=== PATIENT | male | born 1935 | race Caucasian/White ===

== ENCOUNTER → 2021-02-16 08:20 | Outpatient (CLI) | payer MEDICARE, SELFPAY ==
[2021-02-16 19:39] LABS: SARS-CoV-2 RNA PCR Negative
== END ==
PROVIDERS: PCP Family Medicine Adolescent Medicine; Visit Provider Physician Assistant
DX: R05 Cough (principal); Z20.822 Contact with and (suspected) exposure to COVID-19
CPT/HCPCS: C9803; U0003; U0005

== ENCOUNTER 2021-05-15 19:40 | Emergency (ER) | payer MEDICARE, SELFPAY ==
--- NOTE | ~2021-05-15 | CT_ITS ---
EXAMINATION: CT abdomen pelvis w con DATE: 05/16/2021 01:25 INDICATION: Left lower quadrant abdominal pain. Constipation. TECHNIQUE: Computed tomography (CT) of the abdomen and pelvis was performed with 100 mL Omnipaque 350 intravenous contrast. Automated exposure control and iterative reconstruction technique were employe d. The dose-length product was 431.17 mGy-cm. COMPARISON: None. FINDINGS: The visualized portions of the lung bases demonstrate calcified pleural plaques bilaterally , which may be seen with asbestosis exposure. There is widespread peripheral septal thickening, consi stent with asbestosis. No pleural effusion. The heart size is normal. There are coronary artery calci fications. No pericardial effusion. There is a small sliding hiatal hernia. There are 5 masses in the liver measuring up to 3.5 cm. There is a 14 mm hypodense mass in the pancreatic tail. The gallbladde r, spleen, and adrenal glands are normal. There are cysts in the kidneys measuring up to 3.6 cm on th e left. There are bilateral inguinal hernias containing fat. There is a large volume of stool in the colon. There are no dilated loops of bowel. The appendix is normal. There are no pathologically enlar ged lymph nodes. There is no free intraperitoneal fluid. There is severe lumbar spondylosis. There is a chronic compression fracture of T12. There is severe thoracic spondylosis. IMPRESSION: 1. Multiple liver masses, consistent with metastatic disease. 2. 14 mm pancreatic mass. The differential diagnosis includes metastatic disease, pseudocyst, intradu ctal papillary mucinous neoplasm (IPMN), mucinous cystic neoplasm (MCN), serous cystadenoma, and neur oendocrine tumor. 9 3. Large volume of colonic stool correlating with the symptom of constipation. Reviewed, dictated and finalized at location A. IMPRESSION: 1. Multiple liver masses, consistent with metastatic disease. 2. 14 mm pancreatic mass. The differential diagnosis includes metastatic diseas e, pseudocyst, intraductal papillary mucinous neoplasm (IPMN), mucinous cystic neoplasm (MCN), serous cystadenoma, and neuroendocrine tumor. 9 3. Large volume of colonic stool correlating with the symptom of constipation.
[2021-05-15 20:15] VITALS: BP 158/96; PULSE 77; RESP 16; TEMP 36.6; O2SAT 100
[2021-05-15 20:44] LABS: Basophils Percent Auto 0.4 % (0.2-1.2); Eosinophils Percent Auto 0.1 % (0-4.4); Hematocrit 47.8 % (42.0-52.0); Hemoglobin 16.5 g/dL (14.0-18.0); Immature Granulocyte Absolute 0.06 K/mm3 (0.00-0.031); Immature Granulocyte Percent A 0.6 % (0-0.5); Immature Platelet Fraction Pct 3.7 % (0.9-11.2); Lymphocytes Absolute Auto 0.75 K/mm3 (0.9-3.2); Lymphocytes Percent Auto 7.7 % (18.3-44.2); Mean Corpuscular HGB Conc 34.5 g/dl (32-36); Mean Corpuscular Hemoglobin 30.1 pg (26-34); Mean Corpuscular Volume 87.1 fl (80-100); Mean Platelet Volume 9.9 fl (7.4-10.4); Monocytes Absolute Auto 0.6 K/mm3 (0.1-0.6); Monocytes Percent Auto 6.1 % (2.6-8.5); Neutrophils Absolute Auto 8.3 K/mm3 (1.3-6.7); Neutrophils Percent Auto 85.1 % (45.5-73.1); Platelet Count Result 123 k/mm3 (150-375); Red Blood Count 5.49 M/mm3 (4.6-6.20); Red Cell Distribution Width 15.3 % (11.5-14.5); White Blood Count 9.8 K/mm3 (4.5-10.0)
[2021-05-15 20:57] LABS: Alanine Aminotransferase 37 U/L (4-50); Albumin Level 4.5 g/dL (3.5-5.1); Alkaline Phosphatase 68 U/L (38-126); Anion Gap 12 mmol/L (8-16); Aspartate Amino Transferase 41 U/L (17-59); Bilirubin,Total 1.4 mg/dL (0.2-1.3); Blood Urea Nitrogen 18 mg/dL (9-20); Calcium 9.1 mg/dL (8.4-10.2); Carbon Dioxide 25 mmol/L (22-30); Chloride 93 mmol/L (98-107); Estimated CRCL calculation 52 ml/min; Estimated Glomerular Filt Rate > 60; Glucose 162 mg/dL (75-110); Lipase 26 U/L (23-300); Potassium 4.4 mmol/L (3.4-5.0); Sodium 130 mmol/L (137-145)
[2021-05-15 21:37] LABS: Add Urine Microscopic? YES; Appearance Urine Cloudy (Clear); Bilirubin Urine Negative (Negative); Blood Urine 2+ (Negative); Color Urine Amber (Yellow); Glucose Urine UA Negative (Negative); Ketones Urine 1+ mg/dL (Negative); Leukocyte Esterase Ur Negative LEU/UL (Negative); Mucus Urine Heavy /lpf; Nitrate Urine Negative (Negative); Protein Urine 2+ mg/dL (Negative); RBC Urine 21-50 /hpf (0-2); Specific Grav Ur 1.027 (1.001-1.035); WBC Urine 0-3 /hpf
[2021-05-15 23:04] VITALS: BP 160/91; PULSE 72; RESP 16; TEMP 36.6; O2SAT 96
--- NOTE | 2021-05-15 23:10 | PC.NURSE ---
Pt reports he had a large BM in the waiting room. Reports relief with BM. States it was brown and formed
[2021-05-16] VITALS (19 sets, daily range): BP systolic 145–183; BP diastolic 65–103; PULSE 64–78; RESP 12–20; TEMP 36.4; O2SAT 96–100
--- NOTE | 2021-05-16 00:52 | ED.ABDPAIN ---
HPI - Abdominal Pain General Chief Complaint: Nausea/Vomiting/Diarrhea Stated Complaint: nausea, vomiting, diarrhea, hypotension Time Seen by Provider: 05/16/21 00:16 Source: patient, family and RN notes reviewed Mode of arrival: EMS Limitations: no limitations History of Present Illness HPI narrative: This is an 86 year old male who presents for evaluation of abdominal pain, constipation with vomiting. He states he was diagnosed with lung ca with liver mets in April, and he was started oral chemotherapy. This chemotherapy generally causes diarrhea so he has been taking Imodium. He states he has not taken Imodium in 2 weeks. Today he felt like he had to have a bowel movement but he was unable to go. His last bowel movement prior was 4 days ago. He took magnesium citrat and tried an enema for his constipation. HE denies nausea and vomiting after taking the magnesium citrate, and he reports 2 episodes of emesis today. He still has nausea but he reports he had a bowel movement in waiting room today. He also reports left lower abdominal abdominal pain. He denies fever or chills. Related Data Home Medications Medication Instructions Recorded Confirmed aspirin 81 mg PO DAILY 10/20/19 10/20/19 atorvastatin 10 mg PO DAILY 10/20/19 10/20/19 dicyclomine 10 mg PO DAILY 10/20/19 10/20/19 metoprolol tartrate 25 mg PO BID 10/20/19 10/20/19 psyllium husk [Metamucil] 1 tbsp PO DAILY 10/20/19 10/20/19 Allergies Allergy/AdvReac Type Severity Reaction Status Date / Time No Known Allergies Allergy Mild Verified 05/16/21 00:23 Review of Systems Review of Systems: All systems reviewed & are unremarkable except as noted in HPI and below Constitutional: Constitutional: Denies chills and Denies fever(s) Cardiovascular: Cardiovascular: Denies chest pain Respiratory: Respiratory: Denies cough and Denies dyspnea Gastrointestinal: Gastrointestinal: Reports abdominal pain (intermittent chronic), Reports constipation, Reports diarrhea, Reports nausea (chronic) and Reports vomiting PMFSH Past Medical History Medical History (Updated 05/16/21 @ 02:38 by Ophelia Melendez MD) Asbestosis CAD (coronary artery disease) Diabetes Hyperlipidemia Hypertension Surgical History Surgical History Stented coronary artery Social History Social History Gender identity (if verbalized by the patient): Male Exam Const: General: no acute distress and alert Orientation/consciousness: patient oriented x3 Eyes: EOM: EOMs intact bilaterally Resp: Effort & Inspection: normal respiratory effort and no retractions Auscultation: clear to auscultation bilaterally Cardio: Rate: regular rate Rhythm: regular rhythm Heart sounds: no murmurs GI: GI Palp: Yes Soft to palpation, Yes Tenderness to palpation present (GI) (LLQ, RUQ) and No Guarding due to palpation present (GI) Auscultation: normal bowel sounds Skin: General skin exam: normal color Rashes: no rashes Neuro: General: patient oriented x3, moves all extremities and CN's II-XI intact bilaterally Psych: Mental Status: mental status grossly normal Affect: normal affect Course Reevaluation(s) Reevaluation #1: I Reviewed preliminary CT report with patient and daughter. I think it is unlikely he has colitis needing antibiotics. He is aware of liver mass. I also discussed sodium 130 and he is currently receiving IVF. They reports he has labs being drawn in the next 1-2 weeks. Date: 05/16/21 Time: 02:32 Vital Signs Vital signs: Vital Signs Temperature 97.9 F 05/15/21 20:15 Pulse Rate 77 05/15/21 20:15 Respiratory Rate 16 05/15/21 20:15 Blood Pressure 158/96 H 05/15/21 20:15 Pulse Oximetry 100 05/15/21 20:15 Temperature 97.6 F 05/16/21 00:15 Pulse Rate 68 05/16/21 03:00 Respiratory Rate 18 05/16/21 03:00 Blood Pressure 148/65 H 05/16/21
[2021-05-16] MEDS: SODIUM CHLORIDE 0.9% IV 1,000 ML 999 ML IV CONT (01:04)
[2021-05-16] MEDS: ONDANSETRON INJ 4 MG/2 ML VIAL IV PUSH (01:04)
== END 2021-05-16 03:00 | disposition home or self-care (01) ==
PROVIDERS: Emergency Medicine; Emergency Provider General Practice; PCP Family Medicine Adolescent Medicine
DX: E86.0 Dehydration (principal); K59.00 Constipation, unspecified; E87.1 Hypo-osmolality and hyponatremia; C47.5 Malignant neoplasm of peripheral nerves of pelvis; C78.7 Secondary malignant neoplasm of liver and intrahepatic bile duct
CPT/HCPCS: 36415; 74177; 80053; 81001; 83690; 85025; 85055; 96361; 96374; 99284; J2405; J7030; Q9967

== ENCOUNTER 2021-05-29 05:59 | Observation (INO) | payer MEDICARE, SELFPAY ==
[2021-05-29] VITALS (14 sets, daily range): BP systolic 128–163; BP diastolic 81–98; PULSE 57–678; RESP 12–18; TEMP 36.1–36.6; O2SAT 97–100; BMI 20.6
--- NOTE | ~2021-05-29 | MR_ITS ---
EXAMINATION: MR brain/brain stem wo/w con EXAM DATE: 05/30/2021 08:18 INDICATION: Dizziness. History lung cancer and metastatic disease. TECHNIQUE: Magnetic resonance imaging (MRI) of the brain/brain stem obtained without contrast. Sagit betzaida T1, axial diffusion, gradient echo (T2*), T1, T2, FLAIR sequences obtained. Patient was then inj ected with 10 cc intravenous Multihance contrast. Axial and coronal postcontrast T1 weighted sequence s obtained. Correlation is made to head CT from yesterday. FINDINGS: Small region of encephalomalacia in the left parietal lobe subcortical white matter, likely an old infarction. There is old small bilateral cerebellar infarctions. There are no areas of restri cted diffusion to suggest acute infarction. There is no acute hemorrhage seen on the T2*, a hemoside rin sensitive sequence. No intraparenchymal brain mass lesion. There is mild to moderate periventri cular and subcortical T2/FLAIR signal hyperintensity, nonspecific but probably related to small vesse l ischemic disease (microangiopathy). There is mild to moderate prominence of the sulci and ventric les related to cerebral atrophy. There are no extra-axial collections. Flow voids are seen in the cerebral arteries on the T2-weighted sequences consistent with their expected patency. The orbits ar e unremarkable. Soft tissue is unremarkable. IMPRESSION: 1. No acute intracranial findings. 2. Chronic age related findings. 3. 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 Reviewed, dictated and finalized at location B.
--- NOTE | ~2021-05-29 | CT_ITS ---
EXAMINATION: CT brain wo con DATE: 05/29/2021 06:37 INDICATION: Left-sided numbness. TECHNIQUE: Computed tomography (CT) of the head was performed without intravenous contrast. The dose- length product was 605.33 mGy-cm. Automated exposure control and iterative reconstruction technique w ere employed. COMPARISON: None FINDINGS: No acute intracranial hemorrhage, infarction, mass or mass effect. There is a chronic left parietal lobe infarction. Generalized atrophy. There are scattered moderate periventricular and subco rtical white matter changes, most likely related to small vessel ischemic disease (microangiopathy). There is intracranial atherosclerosis. Paranasal sinuses and mastoids are pneumatized. No depressed s kull fractures. IMPRESSION: 1. No acute intracranial abnormality. 2: Chronic left parietal lobe infarction. 3: Chronic age-related findings. As per stroke protocol, I called these results to emergency room, discussed with Dr. Daly Sifuentes MD at 05/29/2021 06:41 CDT. Reviewed, dictated and finalized at location A. IMPRESSION: 1. No acute intracranial abnormality. 2: Chronic left parietal lobe infarction. 3: Chronic age-related findings. As per stroke protocol, I called these results to emergency room, discussed wit h Dr. Daly Sifuentes MD at 05/29/2021 06:41 CDT.
--- NOTE | ~2021-05-29 | US_ITS ---
EXAMINATION: US carotid duplex BI DATE: 05/29/2021 08:02 INDICATION: Stroke protocol TECHNIQUE: Grayscale, color Doppler, and pulsed Doppler images of the cervical carotid arteries were obtained. The degree of vessel stenosis is placed in one of the following categories: normal, <50%, 5 0-69%, >=70% but less than near-occlusion, near-occlusion, or total occlusion. Note that percent sten osis relative to normal distal artery lumen diameter is indirectly measured from velocity measurement s as described by Sherwin, et al. Radiology 2003; 229:340-346. Notes: Normal: Peak systolic velocity <125 centimeters/sec and no plaque <50%. Peak systolic velocity <125 ( EDV <40; ICA/CCA PSV ratio <2.0; used these factors only a tandem lesions or low cardiac output or co ntralateral disease) 50-69 %: PSV 125-230 (EDV 40-100; ratio 2-4) >= 70% but less than near occlusion: PSV greater than 230 (EDV > 100; ratio> 4.0) Near Occlusion: PSV that is variable; markedly narrowed lumen Occlusion: Absent flow on color/spectral Doppler and no lumen on rueda scale. COMPARISON: None. FINDINGS: RIGHT: The right common carotid artery (CCA) peak systolic velocity (PSV) is 55 cm/s. The right internal car otid artery (ICA) PSV is 62 cm/s. The right ICA end-diastolic velocity (EDV) is 16 cm/s. The right IC A/CCA PSV ratio is 1.1. The external carotid artery (ECA) PSV is 51 cm/s. There is antegrade flow in the right vertebral artery. LEFT: The left CCA PSV is 67 cm/s. The left ICA PSV is 53 cm/s. The left ICA EDV is 15 cm/s. The left ICA/C CA PSV ratio is 0.8. The ECA PSV is 50 cm/s. There is antegrade flow in the left vertebral artery. IMPRESSION: 1. Less than 50% stenosis in the right internal carotid artery by sonographic criteria. 2. Less than 50% stenosis in the left internal carotid artery by sonographic criteria. Reviewed, dictated and finalized at location A. IMPRESSION: 1. Less than 50% stenosis in the right internal carotid artery by sonographic denise lieberman. 2. Less than 50% stenosis in the left internal carotid artery by sonographic miguelito avendano.
--- NOTE | 2021-05-29 06:10 | ED.NEUROSD ---
HPI - Neuro Symptoms/Deficit General Chief Complaint: Neuro Symptoms/Deficit Stated Complaint: l sided numbness Time Seen by Provider: 05/29/21 06:10 Source: patient and EMS Mode of arrival: EMS Limitations: no limitations History of Present Illness HPI Narrative: Patient is a 86-year-old male with a history of coronary artery disease, heart attack, hypertension, lung cancer with known liver metastases who presents for evaluation of left-sided numbness. Patient states he was experiencing tingling in his left hand and left leg this morning when he awakened and was trying to put his shoes on. Symptoms were noticed approximately 5 AM this morning. Last known normal was last night when he went to sleep around 10 PM. Patient denies any headache, vision changes, difficulty with speech, difficulty with ambulation or facial droop. Patient states symptoms lasted for approximately 45 minutes before resolving. At the time of my assessment, patient denies any current weakness or numbness. Patient denies any history of stroke. He is compliant with his medications. Related Data Home Medications Medication Instructions Recorded Confirmed aspirin 81 mg PO DAILY 10/20/19 10/20/19 atorvastatin 10 mg PO DAILY 10/20/19 10/20/19 dicyclomine 10 mg PO DAILY 10/20/19 10/20/19 metoprolol tartrate 25 mg PO BID 10/20/19 10/20/19 psyllium husk [Metamucil] 1 tbsp PO DAILY 10/20/19 10/20/19 Allergies Allergy/AdvReac Type Severity Reaction Status Date / Time No Known Allergies Allergy Mild Verified 05/29/21 07:12 Review of Systems Review of Systems: Narrative: CONSTITUTIONAL: Denies fever, chills, or sweats. EYES: Denies visual changes, redness, or discharge. ENT: Denies rhinorrhea, congestion, sore throat, or otalgia. CARDIOVASCULAR: Denies chest pain, palpitations, or edema. RESPIRATORY: Denies cough or dyspnea. GASTROINTESTINAL: Denies abdominal pain, nausea, vomiting, or diarrhea. GENITOURINARY: Denies dysuria or hematuria. SKIN: Denies rash or itching. MUSCULOSKELETAL: Denies back pain, joint pain, or myalgia. NEUROLOGIC: Denies headache, numbness, or weakness. [facility] Past Medical History Medical History (Updated 05/29/21 @ 07:37 by Daly Sifuentes MD) Asbestosis CAD (coronary artery disease) Diabetes Hyperlipidemia Hypertension Surgical History Surgical History Stented coronary artery Social History Social History Gender identity (if verbalized by the patient): Male Exam Narrative: Exam Narrative: GENERAL: Awake, alert, conversant HEAD: Normocephalic, atraumatic. EYES: PERRLA and EOMI. ENT: Nares clear, no rhinorrhea or epistaxis. Mucous membranes moist. NECK: Supple. CHEST: No respiratory distress, breathing even and non labored HEART: Regular rate, sinus rhythm ABDOMEN:Non distended, non tender EXTREMITIES: Normal range of motion. No edema. SKIN: Warm, dry, no rash. NEURO:No focal deficits. Alert and oriented x3. Finger to nose intact bilaterally. EOMs intact without nystagmus. No facial droop/asymmetry noted bilaterally. Grimace intact. Intact sensation in face. Hearing intact bilaterally. Shoulder shrug intact. Strength 5/5 bilateral upper extremities. Strength 5/5 bilateral lower extremities. Reflexes 2+ patellar. Heel to juan intact bilaterally. Ambulatory exam deferred. NIH stroke scale score is 0. Course Consultations Consultation #1: Stat CT head negative. Dr. Reyes recommends admission and stroke work up. Date: 05/29/21 Time: 06:45 Vital Signs Vital signs: Vital Signs Temperature 36.6 C 05/29/21 05:55 Pulse Rate 63 05/29/21 05:55 Respiratory Rate 14 05/29/21 05:55 Blood Pressure 146/91 H 05/29/21 05:55 Pulse Oximetry 97 05/29/21 05:55 Temperature 36.6 C 05/29/21 05:55 Pulse Rate 63 05/29/21 05:55 Respiratory Rate 14 05/29/21 05:55 Blood Pressure 146/91 H
--- NOTE | 2021-05-29 06:11 | ECG_ITS ---
Measurements Intervals [place] Rate: 57 P: 40 TX: 184 QRS: 13 QRSD: 92 T: -9 QT: 461 QTc: 451 Interpretive Statements SINUS BRADYCARDIA WITH MARKED SINUS ARRHYTHMIA BORDERLINE T WAVE ABNORMALITY- INFERIOR LEADS BASELINE ARTIFACT- I, II, III, AVR, AVL, AVF, V3-V6 BORDERLINE ECG Electronically Signed On 05-29-2021 8:08:26 CDT by Hayden Starks D.O.
[2021-05-29 07:10] LABS: Basophils Percent Auto 0.5 % (0.2-1.2); Eosinophils Absolute Auto 0.3 K/mm3 (0-0.3); Eosinophils Percent Auto 5.7 % (0-4.4); Hematocrit 44.2 % (42.0-52.0); Hemoglobin 15.3 g/dL (14.0-18.0); Immature Platelet Fraction Pct 2.9 % (0.9-11.2); Lymphocytes Absolute Auto 0.78 K/mm3 (0.9-3.2); Lymphocytes Percent Auto 17.9 % (18.3-44.2); Mean Corpuscular HGB Conc 34.6 g/dl (32-36); Mean Corpuscular Hemoglobin 30.2 pg (26-34); Mean Corpuscular Volume 87.4 fl (80-100); Mean Platelet Volume 8.9 fl (7.4-10.4); Monocytes Absolute Auto 0.6 K/mm3 (0.1-0.6); Monocytes Percent Auto 12.6 % (2.6-8.5); Neutrophils Absolute Auto 2.8 K/mm3 (1.3-6.7); Neutrophils Percent Auto 63.3 % (45.5-73.1); Platelet Count Result 114 k/mm3 (150-375); Red Blood Count 5.06 M/mm3 (4.6-6.20); Red Cell Distribution Width 16.4 % (11.5-14.5); White Blood Count 4.4 K/mm3 (4.5-10.0)
[2021-05-29 07:19] LABS: Anion Gap 8 mmol/L (8-16); Blood Urea Nitrogen 10 mg/dL (9-20); Calcium 8.4 mg/dL (8.4-10.2); Carbon Dioxide 25 mmol/L (22-30); Chloride 97 mmol/L (98-107); Estimated CRCL calculation 46 ml/min; Estimated Glomerular Filt Rate > 60; Glucose 123 mg/dL (65-110); Partial Thromboplastin Time 41.7 SECONDS (22.3-36.8); Potassium 4.1 mmol/L (3.4-5.0); Sodium 130 mmol/L (137-145)
[2021-05-29 07:31] LABS: Troponin I < 0.012 ng/mL (0.000-0.034)
--- NOTE | 2021-05-29 12:24 | PC.NURSE ---
called dietary and ordered a lunch tray for pt at this time
--- NOTE | 2021-05-29 14:05 | ADMGEN ---
This patient, Nawaf Lassiter, was admitted to Medical Room 252-01. Patient/family oriented to hospital policies and general routines including ID bracelet, bed and alarms, visiting hours, pain management, procedures, bathroom and other care routines, personal items, smoking policy, room service/diet, and visiting hours. Information on how to activate the Rapid Response Team has been discussed. Patient/Family are encouraged to report perceived risks to care and to ask questions if they do not understand what they are told or what they should do.
--- NOTE | 2021-05-29 22:29 | PM.IMHP ---
H&P: HPI History of Present Illness Date/Time: 05/29/21 22:29 Chief Complaint: left-sided numbness Narrative: This is an 86-year-old male with past medical history significant for metastatic disease patient is currently undergoing chemotherapy which is on hold as patient states that has been really rough on him he was brought to the emergency room after he had an episode of bilateral hand and arm numbness with weakness of the left hand. He states that he had been in his usual state of health up until this episode denies any nausea vomiting diarrhea abdominal pain cough sputum production fevers chills or rigors no changes in vision no changes in his gait no syncope or near syncope and no vertigo no dizziness no lightheadedness no chest pain. Preliminary workup was significant for CT of head with old left parietal infarct. BMP was significant for mildly decreased sodium at 130. Review of Systems Review of Systems: Narrative: bilateral upper extremities numbness left-sided weakness attributed to taking a p.o. chemotherapy which is states is rough on him Constitutional: Constitutional: Denies chills, Denies fever(s), Denies malaise and Denies weakness Eyes: Eyes: Denies change in vision ENT: Reports system reviewed and no additional complaints, except as documented Cardiovascular: Cardiovascular: Denies chest pain, Denies syncope, Denies irregular heart rhythm, Denies leg edema, Denies lightheadedness, Denies radiating jaw, neck or arm pain, Denies palpitations and Denies dyspnea on exertion Respiratory: Respiratory: Denies cough and Denies dyspnea Gastrointestinal: Gastrointestinal: Denies nausea and Denies vomiting Genitourinary: Genitourinary: Reports no additional male genitourinary complaints Musculoskeletal: Musculoskeletal: Denies joint swelling, Denies muscle cramps, Denies muscle weakness and Reports numbness Integumentary/Breasts: Skin/Breast: Reports system reviewed and no additional complaints, except as docu Neurologic: Reports focal weakness ( left hand) and Reports paresthesias ( bilateral hands) Psychiatric: Psychiatric: Reports no additional psychiatric complaints Endocrine: Endocrine: Reports no additional endocrine complaints Hematologic/Lymphatic: Hematologic/Lymphatic: Reports no additional hematologic/lymphatic complaints Allergic/Immunologic: Allergic/Immunologic: Reports no additional allergic/immunologic complaints [facility] Past Medical History Medical History (Updated 05/29/21 @ 23:43 by Chiara Acevedo MD) Asbestosis CAD (coronary artery disease) Diabetes Hyperlipidemia Hypertension Surgical History Surgical History Stented coronary artery Family History Family History (Updated 05/29/21 @ 14:41 by Esperanza Chappell RN) Mother Cancer Skin cancer (melanoma) Father Heart disease Social History Social History Smoking packs per day: 0.2 Smoking cigarettes per day: 4.0 Years smoked: 22 Smoking pack-years: 4.40 Smoking status: Former smoker Tobacco type: cigarettes Second hand tobacco smoke exposure: No Smoking end date: 11/02/82 Alcohol intake: never Substance use: never Substance use type: does not use Gender identity (if verbalized by the patient): Male Spiritual care concerns: No Meds Home Medications and Allergies Home Medications Medication Instructions Recorded Confirmed Type aspirin 81 mg PO DAILY 10/20/19 05/29/21 History atorvastatin 10 mg PO DAILY 10/20/19 05/29/21 History metoprolol tartrate 25 mg PO BID 10/20/19 05/29/21 History psyllium husk [Metamucil] 1 tbsp PO DAILY 10/20/19 05/29/21 History ondansetron HCl [Zofran] 4 mg PO Q6H 05/29/21 05/29/21 History Allergies Allergy/AdvReac Type Severity Reaction Status Date / Time No Known Allergies Allergy Mild Verified 05/29/21 14:14 Vital Signs Vital Signs - 24 hr
[2021-05-30] VITALS: PULSE 61
--- NOTE | 2021-05-30 | ECHO_ITS ---
Patient Info Name: Nawaf Lassiter Age: 86 years : 1935 Gender: Male Ht: 67 in Wt: 134 lbs BSA: 1.69 m2 HR: 63 bpm BP: 146 / 91 mmHg Heart Rhythm: Sinus Rhythm, Bradycardia Technical Quality: Good Exam Date: 05/30/2021 10:47 AM Exam Location: [facility] Pulmonary Exam Room: 252 Patient Status: Inpatient Admit Date: 05/29/2021 Staff Ordering Physician: Daly Sifuentes MD Organizational Development Manager: Jacqueline Pollard RDCS Attending Provider: Ginger Fang PA-C Referring Physician: Bear GARDINER; Exam Type: CA echo doppler w bubble study Study Info Indications - STROKE PROTOCOL /TIA Complete two-dimensional, color flow and Doppler transthoracic echocardiogram is performed with agitated saline. Contrast/Agitated Saline Contrast/Ag. Saline: Agitated Saline Amount: 20.00 ml Administered By: Tova Vitale RN Existing IV Access: Yes IV Access Condition: patent with no signs of infiltration Summary 1. Left ventricular chamber size, wall thickness, systolic are normal with no regional wall motion abnormalities with an estimated ejection fraction of 60-65%. Grade 1 diastolic dysfunction is present. 2. Left atrial chamber dimension is mildly enlarged. 3. There is mild aortic valve regurgitation. 4. There is mild mitral valve regurgitation. 5. There is mild tricuspid valve regurgitation. 6. Borderline pulmonary hypertension, estimated pulmonary arterial systolic pressure is 35 mmHg. 7. Showed mild mild amount of [id number] shunting during normal respiration and a moderate amount with Valsalva maneuver consistent with a patent foramen ovale. 8. Sinus bradycardia. Left Ventricle Left ventricular chamber size, wall thickness, systolic are normal with no regional wall motion abnormalities with an estimated ejection fraction of 60-65%. Grade 1 diastolic dysfunction is present. Left ventricular chamber dimension is normal. Left ventricular systolic function is normal, estimated at 60-65%. There is no increased left ventricular wall thickness. Left ventricular septal wall motion is normal. The left ventricular diastolic function is grade I diastolic dysfunction. Right Ventricle Right ventricular chamber dimension is normal. Right ventricular systolic function is normal. Left Atria Left atrial chamber dimension is mildly enlarged. Right Atria Right atrial chamber dimension is normal. Aortic Valve The aortic valve is trileaflet. There is no aortic valve sclerosis. There is no aortic valve stenosis. There is mild aortic valve regurgitation. Pulmonic Valve The pulmonic valve is normal. There is no pulmonic valve stenosis. There is trace pulmonic regurgitation. Mitral Valve The mitral valve has thickened leaflets. There is no mitral valve stenosis. There is mild mitral valve regurgitation. The mitral valve annulus is mildly calcified. Tricuspid Valve The tricuspid valve leaflets are normal. There is no significant tricuspid valve stenosis. There is mild tricuspid valve regurgitation. Borderline pulmonary hypertension, estimated pulmonary arterial systolic pressure is 35 mmHg. Pericardium/Pleural The pericardium appears normal. There is no pericardial effusion. Inferior Vena Cava Normal inferior vena cava with >50% collapse upon inspiration consistent with Empty right atrial pressure, 10 mmHg. Aorta The aortic root size at the sinus of Valsalva is normal. The
[2021-05-30 04:00] VITALS: PULSE 66
[2021-05-30 05:16] VITALS: BP 138/81; PULSE 65; RESP 18; TEMP 36.8; O2SAT 97
--- NOTE | 2021-05-30 08:03 | PCOTNOTE ---
Attempted OT evaluation, patient is currently off the unit for a MRI, will attempt at later time.
[2021-05-30 08:34] VITALS: PULSE 64
[2021-05-30] MEDS: ASPIRIN 81 MG CHEWABLE TABLET PO (08:34)
[2021-05-30] MEDS: ATORVASTATIN 10 MG TABLET PO (08:34)
[2021-05-30] MEDS: PSYLLIUM POWDER PACKET 1 PACKET PO (08:34)
[2021-05-30] MEDS: METOPROLOL TARTRATE 25 MG TABLET PO (08:34)
[2021-05-30 12:00] VITALS: PULSE 59
[2021-05-30] MEDS: ACETAMINOPHEN 325 MG TABLET 650 MG PO (14:21)
--- NOTE | 2021-05-30 14:49 | PM.DS ---
DS: Admitting Diagnosis Admitting Diagnosis Neurologic symptoms DS: Discharge Diagnosis Discharge Diagnosis (1) Neurological symptoms: Code(s): R29.90 - Unspecified symptoms and signs involving the nervous system Status: Acute Assessment and Plan: Presented with complaints of left sided tingling and weakness of bilateral hands which he noticed when he had difficulty buttoning his shirt. Symptoms promptly resolved. 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 Given advanced age, unlikely to be a candidate for surgical closure and likely no further evaluation is required. He will need to follow up with PCP and cardiology referral can be considered at discretion of PCP. Brain MRI with no acute findings with old small cerebellar and left parietal lobe infarctions. He was seen in consultation by neurology and will follow up as an outpatient for nerve conduction studies. Brain TIA cannot be ruled out. He will continue with daily aspirin. (2) CAD (coronary artery disease): Code(s): I25.10 - Atherosclerotic heart disease of [place] coronary artery without angina pectoris Status: Acute Assessment and Plan: Continue metoprolol and atorvastatin (3) Diabetes: Code(s): E11.9 - Type 2 diabetes mellitus without complications Status: Acute Assessment and Plan: Blood sugars well controlled. He is not on medications. (4) Hyponatremia: Code(s): E87.1 - Hypo-osmolality and hyponatremia Status: Acute Assessment and Plan: Sodium stable at 130. Likely related to lung cancer. DS: Summary Hospital Course Hospital Course: date of admission: 05/29/2021 date of discharge: 05/30/2021 Nawaf Lassiter is an 86-year-old male with a history of lung cancer with liver metastases, CAD, hypertension, and diabetes who presented to the emergency department on 05/29/2021 with complaints of left-sided numbness ongoing for approximately 45 minutes before complete resolution. 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 He was admitted to the hospitalist service for further evaluation management and seen in consultation by Neurology. Please see above for further details. His symptoms resolved completely and he was feeling back to his usual state of health and requested discharge home. given his overall improvement, he was determined to no longer require inpatient care and was felt to be stable for discharge. We discussed worrisome signs and symptoms for which to return and he was educated on his medications. He was discharged in hemodynamically stable condition on 05/30/2021. Status at Discharge Functional status at discharge: independent ambulation Overall status at discharge: patient is back to baseline Time Spent with Patient Time attestation: Total time spent providing and/or coordinating discharge services: 45 minutes Time spent: Greater than 30 minutes Exam Narrative: Mr. Lassiter is a well-nourished, well-appearing 86-year-old male who is sitting up in bed. he appears comfortable and is in NARD. Neuro: awake, alert and oriented x4, speech clear, CN II-XII intact, strength 5/5 throughout, sensation intact, no pronator drift, bilateral supervisor slashing department strength equal HEENMT: normocephalic, atraumatic, PERRL, EOMI, sclerae anicteric, moist oral mucosa, tongue midline Neck: supple, no lymphadenopathy Respiratory: clear to auscultation bilaterally, nonlabored breathing Cardio: regular rate, regular rhythm with S1-S2 Abdomen: nondis
== END 2021-05-30 16:29 | disposition home or self-care (01) ==
LOC: ANHED 07:52 → ANH2MED 13:08
PROVIDERS: Admitting Provider Internal Medicine; Emergency Provider Emergency Medicine; PCP Family Medicine Adolescent Medicine; Visit Provider Hospitalist
DX: G81.94 Hemiplegia, unspecified affecting left nondominant side (principal); C78.7 Secondary malignant neoplasm of liver and intrahepatic bile duct; E11.9 Type 2 diabetes mellitus without complications; E87.1 Hypo-osmolality and hyponatremia; E78.5 Hyperlipidemia, unspecified; I10 Essential (primary) hypertension; I25.10 Atherosclerotic heart disease of native coronary artery without angina pectoris; J61 Pneumoconiosis due to asbestos and other mineral fibers; Z86.73 Personal history of transient ischemic attack (TIA), and cerebral infarction without residual deficits; Z87.891 Personal history of nicotine dependence; Z95.5 Presence of coronary angioplasty implant and graft; Z85.118 Personal history of other malignant neoplasm of bronchus and lung
CPT/HCPCS: 36415; 70450; 70553; 80048; 84484; 85025; 85055; 85610; 85730; 93005; 93306; 93880; 96375; 97161; 97165; 99285; A9270; A9577; G0378

== ENCOUNTER → 2021-09-22 00:21 | Outpatient (CLI) | payer MEDICARE, SELFPAY ==
[2021-09-22 18:14] LABS: SARS-CoV-2 RNA PCR Negative
== END ==
PROVIDERS: PCP Family Medicine Adolescent Medicine; Visit Provider Family Medicine Adolescent Medicine
DX: R68.89 Other general symptoms and signs (principal); Z20.822 Contact with and (suspected) exposure to COVID-19
CPT/HCPCS: C9803; U0003; U0005

== ENCOUNTER → 2022-04-19 08:35 | Outpatient (CLI) | payer MEDICARE, SELFPAY ==
--- NOTE | ~2022-04-19 | MR_ITS ---
EXAMINATION: MR lumbar spine wo con DATE: 04/19/2022 09:13 INDICATION: Lumbago with sciatica, left side. TECHNIQUE: Magnetic resonance imaging (MRI) of the lumbar spine was performed without intravenous con trast. Sequences included sagittal T2-weighted FSE, sagittal T2-weighted FS FSE, sagittal T1-weighted FSE, and axial T2-weighted FSE. COMPARISON: CT abdomen and pelvis 05/16/2021 FINDINGS: There is 7 degrees levocurvature of thoracolumbar spine. There is 3 mm retrolisthesis of T1 2 on L1 and 5 mm anterolisthesis of L3 on L4. There is mild chronic height loss of T10 and T11 verteb ral bodies. There is a burst fracture of T12 with 3/5 loss of height, bone marrow edema, and retropul chucho of bone 3 mm into central spinal canal, mildly worsened from 05/16/2021. There is a burst fractur e of superior endplate of L1 with 2/5 loss of height, bone marrow edema, and retropulsion of bone 2 m m into central spinal canal. There is a compression fracture of L2 with 1/5 loss of height and bone m arrow edema. There is a burst fracture of superior endplate of L3 with 1/5 loss of height, bone marro w edema, and retropulsion of bone 3 mm into central spinal canal. There is a burst fracture of L4 wit h 1/5 loss of height, bone marrow edema, and retropulsion of bone 3 mm into central spinal canal. The re is severely decreased disc height at L4-L5 with endplate remodeling. There is ligamentum flavum hy pertrophy at the disc levels from T12-L1 through L4-L5. The distal spinal cord signal intensity is no rmal. The conus medullaris is at T12-L1. The following disc levels are specifically discussed: T12-L1: The disc is bulging. There is mild bilateral facet joint osteoarthritis. There is moderate ri ght and mild left neural foraminal stenosis. There is mild central canal stenosis. L1-L2: The disc is bulging. There is mild bilateral facet joint osteoarthritis. There is moderate rig ht and mild left neural foraminal stenosis. There is mild central canal stenosis. L2-L3: The disc is bulging. There is mild bilateral facet joint osteoarthritis. There is mild bilater al neural foraminal stenosis. There is mild central canal stenosis. L3-L4: The disc is bulging. There is severe bilateral facet joint osteoarthritis. There is mild bilat eral neural foraminal stenosis. There is moderate central canal stenosis. L4-L5: The disc is bulging and has an annular fissure. There is severe bilateral facet joint osteoart hritis. There is moderate bilateral neural foraminal stenosis. There is mild central canal stenosis. L5-S1: The disc does not extend beyond the endplate margin. There is mild bilateral facet joint osteo arthritis. There is no neural foraminal stenosis. There is no central canal stenosis. IMPRESSION: 1. Fractures of T12-L3 vertebral bodies, likely subacute. Fracture of L4 vertebral body, which may be acute or subacute. 2. Severe lumbar spondylosis. Reviewed, dictated and finalized at location D. IMPRESSION: 1. Fractures of T12-L3 vertebral bodies, likely subacute. Fracture of L4 verteb ral body, which may be acute or subacute. 2. Severe lumbar spondylosis.
== END ==
PROVIDERS: PCP Family Medicine Adolescent Medicine; Visit Provider Physician Assistant
DX: M54.42 Lumbago with sciatica, left side (principal); M54.41 Lumbago with sciatica, right side; G89.29 Other chronic pain; S32.019A Unspecified fracture of first lumbar vertebra, initial encounter for closed fracture; S32.029A Unspecified fracture of second lumbar vertebra, initial encounter for closed fracture; S32.039A Unspecified fracture of third lumbar vertebra, initial encounter for closed fracture; S32.049A Unspecified fracture of fourth lumbar vertebra, initial encounter for closed fracture; S22.089A Unspecified fracture of T11-T12 vertebra, initial encounter for closed fracture; M47.816 Spondylosis without myelopathy or radiculopathy, lumbar region
CPT/HCPCS: 72148

== ENCOUNTER 2023-01-02 14:20 | Inpatient (IN) | payer MEDICARE, SELFPAY ==
--- NOTE | ~2023-01-02 | CT_ITS ---
EXAMINATION: CT brain wo con INDICATION: Confusion COMPARISON: 05/29/2021 TECHNIQUE: Standard unenhanced head CT. The dose-length product (DLP) was 605.33 mGy-cm. The mA was a djusted according to patient size. Iterative reconstruction technique was employed. FINDINGS: There is no acute intraparenchymal hemorrhage. No evidence of mass lesion. No evidence of a cute infarction. There are areas of prior infarction in the cerebellum and left parietal lobe. There is mild periventricular and subcortical hypodensity probably related to small vessel ischemic disease . There is mild prominence of the sulci and ventricles related to cerebral atrophy. Intracranial calc ified cerebral atherosclerosis is noted. There are no extra-axial collections. There is no mass effec t or midline shift. Changes in the globes are likely from ocular lens surgery. There is moderate muco peri thickening of the ethmoidal air cells. IMPRESSION: 1. No acute intracranial abnormality. 2. Age related findings. Reviewed, dictated and finalized at location F. TOGRAPHY TEACHER
--- NOTE | ~2023-01-02 | XR_ITS ---
EXAMINATION: XR chest 2V DATE: 01/02/2023 15:51 INDICATION: Cough and fever TECHNIQUE: AP and lateral views of the chest are obtained. COMPARISON: 04/12/2012 FINDINGS: There are patchy airspace opacities of the lung bases and in the left midlung zone. Calcifi ed pleural plaques are noted. A right internal jugular Port-A-Cath ends with its tip in the distal tucker perior vena cava. No pleural effusion or pneumothorax. The cardiomediastinal silhouette is normal. Tucker ture anchors are noted in the left humeral head. There is moderate thoracic spondylosis. IMPRESSION: 1. Airspace opacities of the lung bases and left midlung zone which may reflect atelectasis versus pn eumonia. Given presence of a Port-A-Cath, recommend correlation for history of malignancy. Reviewed, dictated and finalized at location F. GATION SERVICE TECHNICIAN IMPRESSION: 1. Airspace opacities of the lung bases and left midlung zone which may reflect atelectasis versus pneumonia. Given presence of a Port-A-Cath, recommend corre lation for history of malignancy.
--- NOTE | ~2023-01-02 | CT_ITS ---
EXAMINATION: CTA chest PE protocol DATE: 01/02/2023 19:50 INDICATION: Respiratory alkalosis, cough, history of lung cancer TECHNIQUE: Computed tomography angiography (CTA) of the chest was performed with 100 mL Omnipaque-350 intravenous contrast timed to evaluate the pulmonary arteries. Coronal maximum intensity projection 3D-reconstructions were created by the technologist. The dose-length product (DLP) was 171.77 mGy-cm. Automated exposure control and iterative reconstruction technique were employed. COMPARISON: 05/16/2021 FINDINGS: The pulmonary arteries are well-opacified. No pulmonary embolism is identified. There our p erihilar airspace opacities of the left upper lobe. There is some attenuation of the pulmonary arteri es in this region of airspace opacity. There are airspace opacities of the lingula and bilateral lowe r lobes, left greater than right. Calcified pleural plaques are seen which can be seen in the setting of prior asbestos exposure. There is left hilar and right paratracheal lymphadenopathy. There are tr eyda pleural effusions. No pneumothorax is identified. The heart size is normal. A right internal jugu lar Port-A-Cath ends with its tip in the distal superior vena cava. There are hypoattenuating masses of the liver. There are multiple thoracic compression fractures. There are burst fractures L1 and L2. IMPRESSION: 1. No pulmonary embolism identified. 2. Left perihilar upper lobe airspace opacity which could reflect infection/inflammation or treated m alignancy. 3. Airspace opacities of the lingula and lower lobes, consistent with pneumonia. 4. Left hilar and right paratracheal lymphadenopathy, reactive versus metastatic. 5. Hypoattenuating liver masses, consistent with metastatic disease. Reviewed, dictated and finalized at location F. AR POINTER IMPRESSION: 1. No pulmonary embolism identified. 2. Left perihilar upper lobe airspace opacity which could reflect infection/inf lammation or treated malignancy. 3. Airspace opacities of the lingula and lower lobes, consistent with pneumonia . 4. Left hilar and right paratracheal lymphadenopathy, reactive versus metastati c. 5. Hypoattenuating liver masses, consistent with metastatic disease.
[2023-01-02 14:49] VITALS: BP 147/64; PULSE 88; RESP 20; TEMP 38.2; O2SAT 95
--- NOTE | 2023-01-02 14:52 | ECG_ITS ---
Measurements Intervals [place] Rate: 85 P: 37 [place]: 168 QRS: 41 QRSD: 86 T: 7 QT: 374 QTc: 447 Interpretive Statements SINUS RHYTHM VENTRICULAR BIGEMINY BASELINE ARTIFACT- I, II, AVR, AVL ABNORMAL ECG COMPARED TO ECG 05/29/2021 07:09:19 SINUS RHYTHM NOW PRESENT VENTRICULAR BIGEMINY NOW PRESENT Electronically Signed On 01-02-2023 19:21:35 TAR LEVELER by Hayden Starks D.O.
[2023-01-02 17:09] LABS: Basophils Percent Auto 0.1 % (0.2-1.2); Hematocrit 33.5 % (42.0-52.0); Hemoglobin 11.5 g/dL (14.0-18.0); Immature Granulocyte Absolute 0.02 K/mm3 (0.00-0.031); Immature Granulocyte Percent A 0.2 % (0-0.5); Lymphocytes Percent Auto 4.3 % (18.3-44.2); Mean Corpuscular HGB Conc 34.3 g/dl (32-36); Mean Corpuscular Hemoglobin 31.4 pg (26-34); Mean Corpuscular Volume 91.5 fl (80-100); Mean Platelet Volume 8.9 fl (7.4-10.4); Monocytes Absolute Auto 1.3 K/mm3 (0.1-0.6); Monocytes Percent Auto 14.5 % (2.6-8.5); Neutrophils Absolute Auto 7.4 K/mm3 (1.3-6.7); Neutrophils Percent Auto 80.9 % (45.5-73.1); Platelet Count Result 153 k/mm3 (150-375); Red Blood Count 3.66 M/mm3 (4.6-6.20); White Blood Count 9.2 K/mm3 (4.5-10.0)
[2023-01-02 17:18] LABS: Alanine Aminotransferase 19 U/L (6-50); Albumin Level 3.9 g/dL (3.5-5.1); Alkaline Phosphatase 89 U/L (38-126); Anion Gap 8 mmol/L (8-16); Aspartate Amino Transferase 24 U/L (17-59); Bilirubin,Total 1.1 mg/dL (0.2-1.3); Blood Urea Nitrogen 14 mg/dL (9-20); Calcium 8.1 mg/dL (8.4-10.2); Carbon Dioxide 24 mmol/L (22-30); Chloride 91 mmol/L (98-107); Estimated CRCL calculation 61 ml/min; Estimated Glomerular Filt Rate > 60; Glucose 178 mg/dL (65-110); Potassium 4.3 mmol/L (3.4-5.0); Sodium 123 mmol/L (137-145)
[2023-01-02 17:27] VITALS: BP 123/75; PULSE 78; RESP 18; O2SAT 94
[2023-01-02 17:45] LABS: Influenza A QL RT-PCR Negative (Negative); Influenza B QL RT-PCR Negative (Negative); SARS-CoV-2 RNA PCR Negative
[2023-01-02 18:28] VITALS: BP 146/72; PULSE 90; RESP 16; O2SAT 98
--- NOTE | 2023-01-02 18:37 | ED.GENADULT ---
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 Patient's daughter is at bedside and provides history. She states that she drove the patient from [place] to [place] within the past 2 days. States over the 2 days, the patient developed confusion and has been coughing. Patient's daughter states the patient was getting better this morning, ate a full breakfast and was acting himself, took a nap this afternoon and woke up worse than he was yesterday. States the patient has been walking in circles with his walker, confused. She reports he normally ambulates with a walker or cane. Daughter denies known fever, rash, hematuria, head trauma, fall. She states that the patient has been hospitalized multiple times in [place] for dehydration. Patient is denying chest pain, abdominal pain, nausea, vomiting, diarrhea, headache, difficulty breathing. Reports patient took half a oxycodone with acetaminophen pill today, otherwise no medications on board. <Edel Sood PA-C - Last Filed: 01/03/23 04:03> Related Data Home medications: Home Medications Medication Instructions Recorded Confirmed aspirin 81 mg chewable tablet 81 mg PO DAILY 10/20/19 01/03/23 atorvastatin 10 mg tablet 10 mg PO DAILY 10/20/19 01/03/23 metoprolol tartrate 25 mg tablet 25 mg PO BID 10/20/19 01/03/23 psyllium husk 3.4 gram/5.4 gram 1 tbsp PO DAILY PRN Constipation 01/30/22 01/03/23 oral powder (Metamucil) amlodipine 2.5 mg tablet 2.5 mg PO DAILY 01/03/23 01/03/23 hydrocodone bitartrate 20 mg 20 mg PO DAILY 01/03/23 01/03/23 tablet,crush resist,extended rel. 24hr metformin 500 mg tablet,extended 500 mg PO DAILY 01/03/23 01/03/23 release 24 hr oxycodone-acetaminophen 5 mg-325 1 tablet PO Q12H PRN Pain 01/03/23 01/03/23 mg tablet <Edel Sood PA-C - Last Filed: 01/03/23 04:03> Allergies/adverse reactions: Allergies Allergy/AdvReac Type Severity Reaction Status Date / Time No Known Allergies Allergy Mild Verified 08/06/22 14:01 <Edel Sood PA-C - Last Filed: 01/03/23 04:03> Review of Systems Review of Systems: CONSTITUTIONAL: Denies fever, chills EYES: Denies visual changes, redness, or discharge. ENT: Denies rhinorrhea, sore throat, or otalgia. CARDIOVASCULAR: Denies chest pain, palpitations, or edema. RESPIRATORY: See HPI GASTROINTESTINAL: Denies abdominal pain, nausea, vomiting, or diarrhea. GENITOURINARY: Denies dysuria or hematuria. SKIN: Denies rash or itching. MUSCULOSKELETAL: Denies back pain, joint pain, or myalgia. NEUROLOGIC: Denies headache, numbness, dizziness, or weakness. PSYCHIATRIC: Denies anxiety or depression. <Edel Sood PA-C - Last Filed: 01/03/23 04:03> [facility] Past Medical History Medical History: Medical History Asbestosis CAD (coronary artery disease) Diabetes Hyperlipidemia Hypertension [place] (myocardial infarction) <Edel Sood PA-C - Last Filed: 01/03/23 04:03> Surgical History Surgical History: Surgical History History of coronary angioplasty with insertion of stent History of total left knee replacement History of total right knee replacement Hx of repair of left rotator cuff Stented coronary artery <Edel Sood PA-C - Last Filed: 01/03/23 04:03> Family History Family History: Family History (Reviewed 01/02/23 @ 21:37
[2023-01-02 19:09] LABS: Alveolar/Arterial O2 Gradient 40.5 mmHg; Device ROOM AIR; Fractional Inspired Oxygen 21 %; Modified Allen's Test Pass; Oxygen Content ABG 15.7 %vol (16.0-22.0); Oxygen Saturation ABG 95.2 % (95.0-100.0); Oxyhemoglobin 92.8 % THb (90.0-100.0); PCO2 ABG 33.1 mmHg (35.0-45.0); PO2 ABG 69.6 mmHg (80.0-100.0); PO2 FiO2 Ratio Arterial Blood 3.31 %; Site Drawn LEFT RADIAL; pH ABG 7.479 (7.350-7.450)
[2023-01-02 19:13] LABS: Lactic Acid Reflex 1.1 mmol/L (0.7-2.0)
[2023-01-02 19:37] LABS: Basophils Percent Auto 0.2 % (0.2-1.2); Hematocrit 34.6 % (42.0-52.0); Hemoglobin 11.8 g/dL (14.0-18.0); Immature Granulocyte Absolute 0.01 K/mm3 (0.00-0.031); Immature Granulocyte Percent A 0.1 % (0-0.5); Lymphocytes Absolute Auto 0.63 K/mm3 (0.9-3.2); Lymphocytes Percent Auto 7.5 % (18.3-44.2); Mean Corpuscular HGB Conc 34.1 g/dl (32-36); Mean Corpuscular Hemoglobin 31.4 pg (26-34); Mean Platelet Volume 8.7 fl (7.4-10.4); Monocytes Absolute Auto 1.3 K/mm3 (0.1-0.6); Neutrophils Absolute Auto 6.5 K/mm3 (1.3-6.7); Neutrophils Percent Auto 77.2 % (45.5-73.1); Platelet Count Result 147 k/mm3 (150-375); Red Blood Count 3.76 M/mm3 (4.6-6.20); White Blood Count 8.4 K/mm3 (4.5-10.0)
[2023-01-02 19:48] LABS: INR 1.1
[2023-01-02 19:49] LABS: Partial Thromboplastin Time 41.1 SECONDS (22.3-36.8)
[2023-01-02 20:00] LABS: Alanine Aminotransferase 19 U/L (6-50); Albumin Level 3.9 g/dL (3.5-5.1); Alkaline Phosphatase 88 U/L (38-126); Anion Gap 8 mmol/L (8-16); Aspartate Amino Transferase 22 U/L (17-59); Bilirubin,Total 1.1 mg/dL (0.2-1.3); Blood Urea Nitrogen 12 mg/dL (9-20); Calcium 8.1 mg/dL (8.4-10.2); Carbon Dioxide 24 mmol/L (22-30); Chloride 93 mmol/L (98-107); Estimated CRCL calculation 61 ml/min; Estimated Glomerular Filt Rate > 60; Glucose 166 mg/dL (65-110); Lipase 19 U/L (23-300); Potassium 4.3 mmol/L (3.4-5.0); Sodium 125 mmol/L (137-145); Troponin I < 0.012 ng/mL (0.000-0.034)
[2023-01-02 20:08] LABS: Appearance Urine Clear (Clear); Bacteria Urine None Seen /hpf; Bilirubin Urine Negative (Negative); Blood Urine 3+ (Negative); Color Urine Yellow (Yellow); Glucose Urine UA Negative (Negative); Ketones Urine 1+ mg/dL (Negative); Leukocyte Esterase Ur Negative LEU/UL (Negative); Need Manual Microscopic Reviewed; Nitrate Urine Negative (Negative); Non Pathogenic Casts 0-2; Protein Urine 2+ mg/dL (Negative); RBC Urine 21-50 /hpf (0-2); Specific Grav Ur 1.016 (1.001-1.035); Squamous Epithelial Cell Urine None seen /hpf (Few); WBC Urine 0-5 /hpf; pH Urine 6.5 (5.0-9.0)
[2023-01-02 20:09] LABS: Add Urine Microscopic? YES
[2023-01-02 20:14] LABS: CRP 24.1 mg/dL (<1.0)
--- NOTE | 2023-01-02 21:28 | PC.NURSE ---
pt received 1700mL of normal saline given from 2-1,000ml bags with 300mL of waste.
--- NOTE | 2023-01-02 21:36 | PM.IMHP ---
H&P: HPI History of Present Illness Date/Time: 01/02/23 21:36 Chief Complaint: Altered mental status, UTI and weakness Narrative: this is an 87-year-old male patient who has a history of coronary artery disease asbestosis, prior myocardial infarction, hypertension and hyperlipidemia. 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 The patient was supposed to take an airplane ride from [place] however his daughter that lives with him in [facility] decided to drive him to [place]. It took them 2 days to dry from [place]. Over the last 2 days the patient has become more confused and has been coughing. Initially the patient was acting like his normal self this morning. However after taking a nap this afternoon the patient was confused and was walking in circles with his walker. The patient denies any fever chills or any urology symptoms. The patient is currently receiving treatment for his cancer through the [facility]. The patient tells me that he has completed his radiation and chemotherapy. His H&H is 11.8 and 34.6. Arterial blood gases pH 7.479. CO2 is 33.1. PO2 69.6. Sodium is low at 125 with a baseline of 130. Blood glucose One hundred sixty-six. Patient's urine was negative for leukocyte esterase, negative for nitrate 1+ ketones and 3+ blood. No bacteria was seen. chest CTA was read as1. No pulmonary embolism identified. 2. Left perihilar upper lobe airspace opacity which could reflect infection/inflammation or treated malignancy. 3. Airspace opacities of the lingula and lower lobes, consistent with pneumonia. 4. Left hilar and right paratracheal lymphadenopathy, reactive versus metastatic. 5. Hypoattenuating liver masses, consistent with metastatic disease. the patient was started on Rocephin and azithromycin. The patient was admitted to inpatient status on the date of service of 01/02/2023 Review of Systems Review of Systems: see HPI All systems reviewed & are unremarkable except as noted in HPI and below Constitutional: Constitutional: Reports as per HPI and Reports no additional constitutional complaints Eyes: Eyes: Reports as per HPI and Reports no additional eye complaints ENT: Reports system reviewed and no additional complaints, except as documented and Reports Normal hearing present Cardiovascular: Cardiovascular: Reports no additional cardiovascular complaints Respiratory: Respiratory: Reports no additional respiratory complaints and Reports no additional respiratory complaints Gastrointestinal: Gastrointestinal: Reports as per HPI and Reports no additional gastrointestinal complaints Musculoskeletal: Musculoskeletal: Reports no additional musculoskeletal complaints Integumentary/Breasts: Skin/Breast: Reports system reviewed and no additional complaints, except as docu and Reports as per HPI Neurologic: Reports system reviewed and no additional complaints, except as documented, Reports as per HPI and Reports Normal hearing present Psychiatric: Psychiatric: Reports no additional psychiatric complaints and Reports as per HPI Endocrine: Endocrine: Reports no additional endocrine complaints Hematologic/Lymphatic: Hematologic/Lymphatic: Reports no additional hematologic/lymphatic complaints Allergic/Immunologic: Allergic/Immunologic: Reports no additional allergic/immunologic complaints [facility] Past Medical History Medical History Asbestosis CAD (coronary artery disease) Diabetes Hyperlipidemia Hypertension [place] (myocardial infarction) Surgical History Surgical History History of coronary angioplasty with insertion of stent History of total left knee replacement History of total right knee replacement Hx of repair of left rotator cuff Stented coronary artery Family History Family History Mother Sg
[2023-01-02 22:44] VITALS: BP 117/59; PULSE 60; RESP 16; O2SAT 99
[2023-01-02] MEDS: SODIUM CHLORIDE 0.9% IV 1,000 ML 125 ML IV CONT (22:44)
--- NOTE | 2023-01-02 23:15 | ADMGEN ---
This patient, Nawaf Lassiter, was admitted to 2 Medical Room 242-01 @2310. Patient/family oriented to hospital policies and general routines including ID bracelet, bed and alarms, visiting hours, pain management, procedures, bathroom and other care routines, personal items, smoking policy, room service/diet, and visiting hours. Information on how to activate the Rapid Response Team has been discussed. Patient/Family are encouraged to report perceived risks to care and to ask questions if they do not understand what they are told or what they should do.
[2023-01-02 23:41] VITALS: BMI 20.8
[2023-01-02 23:42] VITALS: BP 129/60; PULSE 62; RESP 16; TEMP 36.9; O2SAT 98
[2023-01-03] VITALS (15 sets, daily range): BP systolic 101–119; BP diastolic 51–61; PULSE 60–77; RESP 14–18; TEMP 36.6–37.2; O2SAT 95–99
[2023-01-03 01:36] LABS: Troponin I < 0.012 ng/mL (0.000-0.034)
[2023-01-03] MEDS: ALBUTEROL SULFATE NEB 2.5 MG/3 ML INH INHALATION ×4 (03:21→20:15)
[2023-01-03] MEDS: IPRATROPIUM BR 0.02% INH SOLN 0.5 MG/2.5 ML VIAL INHALATION ×4 (03:21→20:15)
[2023-01-03] MEDS: CENTRAL LINE FLUSH 10 ML IV PUSH ×3 (05:05→21:00)
[2023-01-03 05:21] LABS: Basophils Percent Auto 0.3 % (0.2-1.2); Hematocrit 30.3 % (42.0-52.0); Hemoglobin 10.4 g/dL (14.0-18.0); Immature Granulocyte Absolute 0.02 K/mm3 (0.00-0.031); Immature Granulocyte Percent A 0.3 % (0-0.5); Lymphocytes Absolute Auto 0.36 K/mm3 (0.9-3.2); Lymphocytes Percent Auto 5.4 % (18.3-44.2); Mean Corpuscular HGB Conc 34.3 g/dl (32-36); Mean Corpuscular Hemoglobin 31.5 pg (26-34); Mean Corpuscular Volume 91.8 fl (80-100); Monocytes Absolute Auto 1.2 K/mm3 (0.1-0.6); Monocytes Percent Auto 18.6 % (2.6-8.5); Neutrophils Percent Auto 75.4 % (45.5-73.1); Platelet Count Result 134 k/mm3 (150-375); Red Cell Distribution Width 12.9 % (11.5-14.5); White Blood Count 6.7 K/mm3 (4.5-10.0)
[2023-01-03 05:37] LABS: Lactic Acid Reflex 1.2 mmol/L (0.7-2.0)
[2023-01-03 05:39] LABS: Alanine Aminotransferase 16 U/L (6-50); Albumin Level 3.2 g/dL (3.5-5.1); Alkaline Phosphatase 78 U/L (38-126); Anion Gap 8 mmol/L (8-16); Aspartate Amino Transferase 19 U/L (17-59); Bilirubin,Total 1.1 mg/dL (0.2-1.3); Blood Urea Nitrogen 9 mg/dL (9-20); Calcium 7.7 mg/dL (8.4-10.2); Carbon Dioxide 23 mmol/L (22-30); Chloride 96 mmol/L (98-107); Estimated CRCL calculation 75 ml/min; Estimated Glomerular Filt Rate > 60; Glucose 150 mg/dL (65-110); Magnesium 1.6 mg/dL (1.6-2.3); Potassium 3.7 mmol/L (3.4-5.0); Sodium 127 mmol/L (137-145)
[2023-01-03 05:40] LABS: Hemoglobin A1C 6.4 % (<5.7)
[2023-01-03 05:48] LABS: Troponin I < 0.012 ng/mL (0.000-0.034)
[2023-01-03 08:38] LABS: Glucose Point of Care 162 mg/dl (65-105)
[2023-01-03] MEDS: SODIUM CHLORIDE 0.9% IV 1,000 ML 75 ML IV CONT ×2 (09:33→20:36)
[2023-01-03] MEDS: MAGNESIUM SULF 4 GM/WATER100ML 4 GM/100 ML BAG IVPB (09:34)
[2023-01-03] MEDS: amLODIPine BESYLATE 2.5 MG TABLET PO (09:34)
[2023-01-03] MEDS: ASPIRIN 81 MG CHEWABLE TABLET PO (09:34)
[2023-01-03] MEDS: METOPROLOL TARTRATE 25 MG TABLET PO ×2 (09:35→17:00)
[2023-01-03] MEDS: CALCITONIN NASAL 200 UNITS/SPRAY 3.7 ML BOTTLE 1 SPRAY NASAL (09:35)
[2023-01-03] MEDS: ENOXAPARIN 40 MG/0.4 ML SYRINGE SUB-Q (09:35)
[2023-01-03] MEDS: ATORVASTATIN 10 MG TABLET PO (09:35)
--- NOTE | 2023-01-03 09:45 | P.PNIM_ITS ---
Progress Note: A&P Assessment and Plan (1) Acute metabolic encephalopathy: Code(s): G93.41 - Metabolic encephalopathy Status: Acute Assessment and Plan: * presented with confusion, walking in circles * Seems to most likely related to hyponatremia * Sodium trending up * Head Ct shows no acute abnormalities, and age related findings * Could also be related to new infection, with PNA * Continue to trend mental status * Seems to be better, as he knows his MDs, and where he is, who he is, and the present situation (2) Acute hyponatremia: Code(s): E87.1 - Hypo-osmolality and hyponatremia Status: Acute Assessment and Plan: * Na 123 upon admission * Currently up to 127 * Reduce fluids from 125ml/hr to 75ml/hr * Continue to trend Na * Consider nephrology if indicated * Urine labs (3) Pneumonia: Qualifiers: Laterality: bilateral Lung location: lower lobe of lung Pneumonia type: due to unspecified organism Qualified Code(s): J18.9 - Pneumonia, unspecified organism Code(s): J18.9 - Pneumonia, unspecified organism Status: Acute Assessment and Plan: * CTA found airspace opacities of the lingula and lower lobes, consistent with PNA * WBC normal at 6.7 * Blood cultures pending * Sputum culture ordered * Mild fever * Continue azithromycin and ceftriaxone * Neb treatments (4) Type 2 diabetes mellitus without complications: Code(s): E11.9 - Type 2 diabetes mellitus without complications Status: Acute Assessment and Plan: * Current glucose 150 * A1c 6.4 * Accu-Cheks AC and HS * hypoglycemic protocol * sliding scale insulin * Continue to trend glucose * Hold metformin for now (5) Atherosclerotic heart disease of [place] coronary artery without angina pectoris: Code(s): I25.10 - Atherosclerotic heart disease of [place] coronary artery without angina pectoris Status: Acute Assessment and Plan: * continue with aspirin and atorvastatin * Tele monitor * No complaints of chest pain * Chronic and stable (6) Liver cancer: Code(s): C22.9 - Malignant neoplasm of liver, not specified as primary or secondary Status: Acute Assessment and Plan: * History and chronic * Has completed treatment with chemo and radiation * Continue with outpatient treatment * Stable on the CT scan (7) Hyperlipidemia: Code(s): E78.5 - Hyperlipidemia, unspecified Status: Acute Assessment and Plan: * Continue with atorvastatin Plan MG is 1.6, replace with 4gm Mag Restart home medications for back pain Also add some tizanidine for further back relief Time Spent With Patient Time: 56 minutes Time with patient: Greater than 35 minutes Subjective Date/time seen: 01/03/23944 Interval history: 01/03/23944 In the chair. Patient only really complains of this back pain that is in the lower back close to the coccyx area. He does state that he feels weak. He stated that was also hard to get up to the chair he does have a cough which does sound wet. He denies any current chest pain, shortness a breath, palpitations, nausea, vomiting, diarrhea. CRP is elevated 24.1. Will cont
--- NOTE | 2023-01-03 09:45 | PM.IMPN ---
Progress Note: A&P Assessment and Plan (1) Acute metabolic encephalopathy: Code(s): G93.41 - Metabolic encephalopathy Status: Acute Assessment and Plan: presented with confusion, walking in circles Seems to most likely related to hyponatremia Sodium trending up Head Ct shows no acute abnormalities, and age related findings Could also be related to new infection, with PNA Continue to trend mental status Seems to be better, as he knows his MDs, and where he is, who he is, and the present situation (2) Acute hyponatremia: Code(s): E87.1 - Hypo-osmolality and hyponatremia Status: Acute Assessment and Plan: Na 123 upon admission Currently up to 127 Reduce fluids from 125ml/hr to 75ml/hr Continue to trend Na Consider nephrology if indicated Urine labs (3) Pneumonia: Qualifiers: Laterality: bilateral Lung location: lower lobe of lung Pneumonia type: due to unspecified organism Qualified Code(s): J18.9 - Pneumonia, unspecified organism Code(s): J18.9 - Pneumonia, unspecified organism Status: Acute Assessment and Plan: CTA found airspace opacities of the lingula and lower lobes, consistent with PNA WBC normal at 6.7 Blood cultures pending Sputum culture ordered Mild fever Continue azithromycin and ceftriaxone Neb treatments (4) Type 2 diabetes mellitus without complications: Code(s): E11.9 - Type 2 diabetes mellitus without complications Status: Acute Assessment and Plan: Current glucose 150 A1c 6.4 Accu-Cheks AC and HS hypoglycemic protocol sliding scale insulin Continue to trend glucose Hold metformin for now (5) Atherosclerotic heart disease of [place] coronary artery without angina pectoris: Code(s): I25.10 - Atherosclerotic heart disease of [place] coronary artery without angina pectoris Status: Acute Assessment and Plan: continue with aspirin and atorvastatin Tele monitor No complaints of chest pain Chronic and stable (6) Liver cancer: Code(s): C22.9 - Malignant neoplasm of liver, not specified as primary or secondary Status: Acute Assessment and Plan: History and chronic Has completed treatment with chemo and radiation Continue with outpatient treatment Stable on the CT scan (7) Hyperlipidemia: Code(s): E78.5 - Hyperlipidemia, unspecified Status: Acute Assessment and Plan: Continue with atorvastatin Plan MG is 1.6, replace with 4gm Mag Restart home medications for back pain Also add some tizanidine for further back relief Time Spent With Patient Time: 56 minutes Time with patient: Greater than 35 minutes Subjective Date/time seen: 01/03/23944 Interval history: 01/03/23944 In the chair. Patient only really complains of this back pain that is in the lower back close to the coccyx area. He does state that he feels weak. He stated that was also hard to get up to the chair he does have a cough which does sound wet. He denies any current chest pain, shortness a breath, palpitations, nausea, vomiting, diarrhea. CRP is elevated 24.1. Will continue IV antibiotics at this time. He does have a cough, which he stated is not producing any sputum at this time. 01/02/23? 21:36 ?this is an 87-year-old male patient who has a history of coronary artery disease asbestosis, prior myocardial infarction, hypertension and hyperlipidemia.? 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 The patient was supposed to take an airplane ride from [place] however his daughter that lives with him in [facility] decided to drive him to [place].? It took them 2 days to dry from [place].? Over the last 2 days the patient has become more confused and has been coughing.? Initially the patient was actin
[2023-01-03] MEDS: oxyCODONE HCL (*CRX) 10 MG TAB SR 12HR PO ×2 (10:53→20:58)
[2023-01-03 12:12] LABS: Glucose Point of Care 197 mg/dl (65-105)
[2023-01-03 16:49] LABS: Glucose Point of Care 163 mg/dl (65-105)
[2023-01-03] MEDS: DOCUSATE SODIUM 100 MG CAPSULE PO (17:00)
[2023-01-03] MEDS: oxyCODONE/ACETAMINOPHEN (*CRX) 5-325 MG TABLET 1 TABLET PO (17:02)
[2023-01-03 22:14] LABS: Glucose Point of Care 237 mg/dl (65-105)
[2023-01-04] VITALS (14 sets, daily range): BP systolic 110–149; BP diastolic 50–75; PULSE 69–84; RESP 14–19; TEMP 36.6–37.5; O2SAT 97–99
[2023-01-04] MEDS: IPRATROPIUM BR 0.02% INH SOLN 0.5 MG/2.5 ML VIAL INHALATION ×4 (02:50→20:00)
[2023-01-04] MEDS: ALBUTEROL SULFATE NEB 2.5 MG/3 ML INH INHALATION ×4 (02:50→20:00)
[2023-01-04] MEDS: CENTRAL LINE FLUSH 10 ML IV PUSH ×2 (05:38→13:25)
[2023-01-04 05:54] LABS: Basophils Percent Auto 0.3 % (0.2-1.2); Eosinophils Absolute Auto 0.1 K/mm3 (0-0.3); Eosinophils Percent Auto 0.8 % (0-4.4); Hematocrit 29.2 % (42.0-52.0); Hemoglobin 9.9 g/dL (14.0-18.0); Immature Granulocyte Absolute 0.02 K/mm3 (0.00-0.031); Immature Granulocyte Percent A 0.3 % (0-0.5); Lymphocytes Percent Auto 7.9 % (18.3-44.2); Mean Corpuscular HGB Conc 33.9 g/dl (32-36); Mean Corpuscular Hemoglobin 30.6 pg (26-34); Mean Corpuscular Volume 90.1 fl (80-100); Monocytes Absolute Auto 1.2 K/mm3 (0.1-0.6); Neutrophils Absolute Auto 5.7 K/mm3 (1.3-6.7); Neutrophils Percent Auto 74.7 % (45.5-73.1); Platelet Count Result 158 k/mm3 (150-375); Red Blood Count 3.24 M/mm3 (4.6-6.20); Red Cell Distribution Width 12.8 % (11.5-14.5); White Blood Count 7.6 K/mm3 (4.5-10.0)
[2023-01-04 06:02] LABS: Alanine Aminotransferase 18 U/L (6-50); Albumin Level 3.2 g/dL (3.5-5.1); Alkaline Phosphatase 96 U/L (38-126); Anion Gap 3 mmol/L (8-16); Aspartate Amino Transferase 22 U/L (17-59); Bilirubin,Total 0.6 mg/dL (0.2-1.3); Blood Urea Nitrogen 10 mg/dL (9-20); Calcium 7.5 mg/dL (8.4-10.2); Carbon Dioxide 24 mmol/L (22-30); Chloride 98 mmol/L (98-107); Estimated CRCL calculation 63 ml/min; Estimated Glomerular Filt Rate > 60; Glucose 152 mg/dL (65-110); Potassium 3.7 mmol/L (3.4-5.0); Sodium 125 mmol/L (137-145)
[2023-01-04 08:26] LABS: Glucose Point of Care 116 mg/dl (65-105)
[2023-01-04] MEDS: CALCITONIN NASAL 200 UNITS/SPRAY 3.7 ML BOTTLE 1 SPRAY NASAL (08:26)
[2023-01-04] MEDS: ASPIRIN 81 MG CHEWABLE TABLET PO (08:27)
[2023-01-04] MEDS: METOPROLOL TARTRATE 25 MG TABLET PO ×2 (08:27→16:42)
[2023-01-04] MEDS: DOCUSATE SODIUM 100 MG CAPSULE PO ×2 (08:29→16:42)
[2023-01-04] MEDS: ENOXAPARIN 40 MG/0.4 ML SYRINGE SUB-Q (08:29)
[2023-01-04] MEDS: amLODIPine BESYLATE 2.5 MG TABLET PO (08:30)
[2023-01-04] MEDS: ATORVASTATIN 10 MG TABLET PO (08:30)
[2023-01-04] MEDS: oxyCODONE HCL (*CRX) 10 MG TAB SR 12HR PO ×2 (08:35→20:45)
[2023-01-04] MEDS: SODIUM CHLORIDE 1 GM TABLET PO ×2 (10:05→16:42)
--- NOTE | 2023-01-04 11:00 | PM.IMPN ---
Progress Note: A&P Assessment and Plan (1) Acute metabolic encephalopathy: Code(s): G93.41 - Metabolic encephalopathy Status: Acute Assessment and Plan: presented with confusion, walking in circles Seems to most likely related to hyponatremia Sodium back down, add sodium tabs Head Ct shows no acute abnormalities, and age related findings Could also be related to new infection, with PNA Continue to trend mental status Seems to be better, as he knows his MDs, and where he is, who he is, and the present situation (2) Acute hyponatremia: Code(s): E87.1 - Hypo-osmolality and hyponatremia Status: Acute Assessment and Plan: Na 123 upon admission Currently back down to 125 stop IV fluids Most likely related to opiates, as Na went back down with restart of home pain medications Continue to trend Na Consider nephrology if indicated Urine labs osmolality , Sodium , Urea 341, Creatinine 31.2 (3) Pneumonia: Qualifiers: Laterality: bilateral Lung location: lower lobe of lung Pneumonia type: due to unspecified organism Qualified Code(s): J18.9 - Pneumonia, unspecified organism Code(s): J18.9 - Pneumonia, unspecified organism Status: Acute Assessment and Plan: CTA found airspace opacities of the lingula and lower lobes, consistent with PNA WBC normal at 7.6 Blood cultures NGTD Sputum culture ordered Mild fever Continue azithromycin and ceftriaxone Neb treatments (4) Type 2 diabetes mellitus without complications: Code(s): E11.9 - Type 2 diabetes mellitus without complications Status: Acute Assessment and Plan: Current glucose 152 A1c 6.4 Accu-Cheks AC and HS hypoglycemic protocol sliding scale insulin Continue to trend glucose Hold metformin for now (5) Atherosclerotic heart disease of [place] coronary artery without angina pectoris: Code(s): I25.10 - Atherosclerotic heart disease of [place] coronary artery without angina pectoris Status: Acute Assessment and Plan: continue with aspirin and atorvastatin Tele monitor No complaints of chest pain Chronic and stable (6) Liver cancer: Code(s): C22.9 - Malignant neoplasm of liver, not specified as primary or secondary Status: Acute Assessment and Plan: History and chronic Has completed treatment with chemo and radiation Continue with outpatient treatment Stable on the CT scan (7) Hyperlipidemia: Code(s): E78.5 - Hyperlipidemia, unspecified Status: Acute Assessment and Plan: Continue with atorvastatin Plan MG is 2.0 Restart home medications for back pain tizanidine for further back relief Time Spent With Patient Time: 53 minutes Time with patient: Greater than 35 minutes Subjective Date/time seen: 01/04/23 1100 Interval history: 01/04/23 1100 Patient was lying in bed. Patient states that he feels okay today. He was alert and oriented x4. He denies any chest pain, shortness a breath, nausea, vomiting, diarrhea or constipation. He did state that he had a coughing spell overnight. He also stated that he felt pretty much like himself. Sodium was 125 today will start him on sodium tabs which sodium most likely seems low due to pain medicine. Spoke with his daughter yesterday 01/03/23, gave update, and talked to her about her medications. Spoke to his daughter, about the further care of plan. Possible DC tomorrow. 01/03/23 0945 In the chair. Patient only really complains of this back pain that is in the lower back close to the coccyx area. He does state that he feels weak. He stated that was also hard to get up to the chair he does have a cough which does sound wet. He denies any current chest pain, shortness a breath, palpitations, nausea, vomiting, diarrhea. C
--- NOTE | 2023-01-04 11:00 | P.PNIM_ITS ---
Progress Note: A&P Assessment and Plan (1) Acute metabolic encephalopathy: Code(s): G93.41 - Metabolic encephalopathy Status: Acute Assessment and Plan: * presented with confusion, walking in circles * Seems to most likely related to hyponatremia * Sodium back down, add sodium tabs * Head Ct shows no acute abnormalities, and age related findings * Could also be related to new infection, with PNA * Continue to trend mental status * Seems to be better, as he knows his MDs, and where he is, who he is, and the present situation (2) Acute hyponatremia: Code(s): E87.1 - Hypo-osmolality and hyponatremia Status: Acute Assessment and Plan: * Na 123 upon admission * Currently back down to 125 * stop IV fluids * Most likely related to opiates, as Na went back down with restart of home pain medications * Continue to trend Na * Consider nephrology if indicated * Urine labs osmolality , Sodium , Urea 341, Creatinine 31.2 (3) Pneumonia: Qualifiers: Laterality: bilateral Lung location: lower lobe of lung Pneumonia type: due to unspecified organism Qualified Code(s): J18.9 - Pneumonia, unspecified organism Code(s): J18.9 - Pneumonia, unspecified organism Status: Acute Assessment and Plan: * CTA found airspace opacities of the lingula and lower lobes, consistent with PNA * WBC normal at 7.6 * Blood cultures NGTD * Sputum culture ordered * Mild fever * Continue azithromycin and ceftriaxone * Neb treatments (4) Type 2 diabetes mellitus without complications: Code(s): E11.9 - Type 2 diabetes mellitus without complications Status: Acute Assessment and Plan: * Current glucose 152 * A1c 6.4 * Accu-Cheks AC and HS * hypoglycemic protocol * sliding scale insulin * Continue to trend glucose * Hold metformin for now (5) Atherosclerotic heart disease of [place] coronary artery without angina pectoris: Code(s): I25.10 - Atherosclerotic heart disease of [place] coronary artery without angina pectoris Status: Acute Assessment and Plan: * continue with aspirin and atorvastatin * Tele monitor * No complaints of chest pain * Chronic and stable (6) Liver cancer: Code(s): C22.9 - Malignant neoplasm of liver, not specified as primary or secondary Status: Acute Assessment and Plan: * History and chronic * Has completed treatment with chemo and radiation * Continue with outpatient treatment * Stable on the CT scan (7) Hyperlipidemia: Code(s): E78.5 - Hyperlipidemia, unspecified Status: Acute Assessment and Plan: * Continue with atorvastatin Plan MG is 2.0 Restart home medications for back pain tizanidine for further back relief Time Spent With Patient Time: 53 minutes Time with patient: Greater than 35 minutes Subjective Date/time seen: 01/04/231099 Interval history: 01/04/231099 Patient was lying in bed. Patient states that he feels okay today. He was alert and oriented x4. He denies any chest pain, shortness a breath, nausea, vomiting, diarrhea or constipation. He did state that he had a coughing spell overnight. He also stated that he felt
[2023-01-04 12:05] LABS: Glucose Point of Care 232 mg/dl (65-105)
[2023-01-04] MEDS: INSULIN ASPART (*BKC) 100 UNITS/ML SUB-Q (12:19)
[2023-01-04 13:23] LABS: Creatinine Urine 31.2 mg/dL; Urea Random Urine 341 MG/DL
[2023-01-04 13:34] LABS: Sodium Urine Random 86 meq/L
[2023-01-04 16:43] LABS: Glucose Point of Care 184 mg/dl (65-105)
[2023-01-04 21:12] LABS: Glucose Point of Care 185 mg/dl (65-105)
[2023-01-05] VITALS (7 sets, daily range): BP systolic 106; BP diastolic 48; PULSE 73–92; RESP 18; TEMP 37; O2SAT 94
[2023-01-05] MEDS: IPRATROPIUM BR 0.02% INH SOLN 0.5 MG/2.5 ML VIAL INHALATION ×2 (02:02→07:40)
[2023-01-05] MEDS: ALBUTEROL SULFATE NEB 2.5 MG/3 ML INH INHALATION ×2 (02:02→07:40)
[2023-01-05] MEDS: CENTRAL LINE FLUSH 10 ML IV PUSH (05:23)
[2023-01-05 05:33] LABS: Basophils Percent Auto 0.3 % (0.2-1.2); Eosinophils Absolute Auto 0.1 K/mm3 (0-0.3); Eosinophils Percent Auto 1.4 % (0-4.4); Hematocrit 27.1 % (42.0-52.0); Hemoglobin 9.2 g/dL (14.0-18.0); Immature Granulocyte Absolute 0.05 K/mm3 (0.00-0.031); Immature Granulocyte Percent A 0.6 % (0-0.5); Lymphocytes Absolute Auto 0.71 K/mm3 (0.9-3.2); Lymphocytes Percent Auto 9.1 % (18.3-44.2); Mean Corpuscular HGB Conc 33.9 g/dl (32-36); Mean Corpuscular Hemoglobin 31.2 pg (26-34); Mean Corpuscular Volume 91.9 fl (80-100); Mean Platelet Volume 8.4 fl (7.4-10.4); Monocytes Absolute Auto 1.3 K/mm3 (0.1-0.6); Monocytes Percent Auto 16.5 % (2.6-8.5); Neutrophils Absolute Auto 5.6 K/mm3 (1.3-6.7); Neutrophils Percent Auto 72.1 % (45.5-73.1); Platelet Count Result 145 k/mm3 (150-375); Red Blood Count 2.95 M/mm3 (4.6-6.20); Red Cell Distribution Width 12.9 % (11.5-14.5); White Blood Count 7.8 K/mm3 (4.5-10.0)
[2023-01-05 05:50] LABS: Alanine Aminotransferase 20 U/L (6-50); Albumin Level 2.8 g/dL (3.5-5.1); Alkaline Phosphatase 107 U/L (38-126); Anion Gap 4 mmol/L (8-16); Aspartate Amino Transferase 26 U/L (17-59); Bilirubin,Total 0.6 mg/dL (0.2-1.3); Blood Urea Nitrogen 10 mg/dL (9-20); Calcium 7.4 mg/dL (8.4-10.2); Carbon Dioxide 24 mmol/L (22-30); Chloride 100 mmol/L (98-107); Estimated CRCL calculation 75 ml/min; Estimated Glomerular Filt Rate > 60; Glucose 144 mg/dL (65-110); Magnesium 1.8 mg/dL (1.6-2.3); Potassium 3.7 mmol/L (3.4-5.0); Sodium 128 mmol/L (137-145)
--- NOTE | 2023-01-05 07:15 | P.DS_ITS ---
DS: Admitting Diagnosis Discharge Date 01/05/2315 Admitting Diagnosis Pneumonia, hyponatremia DS: Discharge Diagnosis Discharge Diagnosis (1) Acute metabolic encephalopathy: Code(s): G93.41 - Metabolic encephalopathy Status: Acute Assessment and Plan: * presented with confusion, walking in circles * Seems to most likely related to hyponatremia * Sodium back down, add sodium tabs * Head Ct shows no acute abnormalities, and age related findings * Could also be related to new infection, with PNA * Continue to trend mental status * Seems to be better, as he knows his MDs, and where he is, who he is, and the present situation (2) Acute hyponatremia: Code(s): E87.1 - Hypo-osmolality and hyponatremia Status: Acute Assessment and Plan: * Na 123 upon admission * Currently back down to 125 * stop IV fluids * Most likely related to opiates, as Na went back down with restart of home pain medications * Continue to trend Na * Consider nephrology if indicated * Urine labs osmolality , Sodium , Urea 341, Creatinine 31.2 (3) Pneumonia: Qualifiers: Laterality: bilateral Lung location: lower lobe of lung Pneumonia type: due to unspecified organism Qualified Code(s): J18.9 - Pneumonia, unspecified organism Code(s): J18.9 - Pneumonia, unspecified organism Status: Acute Assessment and Plan: * CTA found airspace opacities of the lingula and lower lobes, consistent with PNA * WBC normal at 7.6 * Blood cultures NGTD * Sputum culture ordered * Mild fever * Continue azithromycin and ceftriaxone * Neb treatments (4) Type 2 diabetes mellitus without complications: Code(s): E11.9 - Type 2 diabetes mellitus without complications Status: Acute Assessment and Plan: * Current glucose 152 * A1c 6.4 * Accu-Cheks AC and HS * hypoglycemic protocol * sliding scale insulin * Continue to trend glucose * Hold metformin for now (5) Atherosclerotic heart disease of [place] coronary artery without angina pectoris: Code(s): I25.10 - Atherosclerotic heart disease of [place] coronary artery without angina pectoris Status: Acute Assessment and Plan: * continue with aspirin and atorvastatin * Tele monitor * No complaints of chest pain * Chronic and stable (6) Liver cancer: Code(s): C22.9 - Malignant neoplasm of liver, not specified as primary or secondary Status: Acute Assessment and Plan: * History and chronic * Has completed treatment with chemo and radiation * Continue with outpatient treatment * Stable on the CT scan (7) Hyperlipidemia: Code(s): E78.5 - Hyperlipidemia, unspecified Status: Acute Assessment and Plan: * Continue with atorvastatin Plan MG is 2.0 Restart home medications for back pain tizanidine for further back relief DS: Summary Hospital Course Hospital Course: Patient is an 87-year-old male with past medical history of coronary artery disease, myocardial infarction, hypertension, hyperlipidemia who presented to the ED with complaints worsening cough and confusion. Prior to arrival patient was noted to be walking in circles with his walker. It was al
--- NOTE | 2023-01-05 07:15 | PM.DS ---
DS: Admitting Diagnosis Discharge Date 01/05/2315 Admitting Diagnosis Pneumonia, hyponatremia DS: Discharge Diagnosis Discharge Diagnosis (1) Acute metabolic encephalopathy: Code(s): G93.41 - Metabolic encephalopathy Status: Acute Assessment and Plan: presented with confusion, walking in circles Seems to most likely related to hyponatremia Sodium back down, add sodium tabs Head Ct shows no acute abnormalities, and age related findings Could also be related to new infection, with PNA Continue to trend mental status Seems to be better, as he knows his MDs, and where he is, who he is, and the present situation (2) Acute hyponatremia: Code(s): E87.1 - Hypo-osmolality and hyponatremia Status: Acute Assessment and Plan: Na 123 upon admission Currently back down to 125 stop IV fluids Most likely related to opiates, as Na went back down with restart of home pain medications Continue to trend Na Consider nephrology if indicated Urine labs osmolality , Sodium , Urea 341, Creatinine 31.2 (3) Pneumonia: Qualifiers: Laterality: bilateral Lung location: lower lobe of lung Pneumonia type: due to unspecified organism Qualified Code(s): J18.9 - Pneumonia, unspecified organism Code(s): J18.9 - Pneumonia, unspecified organism Status: Acute Assessment and Plan: CTA found airspace opacities of the lingula and lower lobes, consistent with PNA WBC normal at 7.6 Blood cultures NGTD Sputum culture ordered Mild fever Continue azithromycin and ceftriaxone Neb treatments (4) Type 2 diabetes mellitus without complications: Code(s): E11.9 - Type 2 diabetes mellitus without complications Status: Acute Assessment and Plan: Current glucose 152 A1c 6.4 Accu-Cheks AC and HS hypoglycemic protocol sliding scale insulin Continue to trend glucose Hold metformin for now (5) Atherosclerotic heart disease of [place] coronary artery without angina pectoris: Code(s): I25.10 - Atherosclerotic heart disease of [place] coronary artery without angina pectoris Status: Acute Assessment and Plan: continue with aspirin and atorvastatin Tele monitor No complaints of chest pain Chronic and stable (6) Liver cancer: Code(s): C22.9 - Malignant neoplasm of liver, not specified as primary or secondary Status: Acute Assessment and Plan: History and chronic Has completed treatment with chemo and radiation Continue with outpatient treatment Stable on the CT scan (7) Hyperlipidemia: Code(s): E78.5 - Hyperlipidemia, unspecified Status: Acute Assessment and Plan: Continue with atorvastatin Plan MG is 2.0 Restart home medications for back pain tizanidine for further back relief DS: Summary Hospital Course Hospital Course: Patient is an 87-year-old male with past medical history of coronary artery disease, myocardial infarction, hypertension, hyperlipidemia who presented to the ED with complaints worsening cough and confusion. Prior to arrival patient was noted to be walking in circles with his walker. It was also noted that the patient was not able to answer simple questions. Upon arrival to the ED patient was noted to have a sodium of 125. Patient is also noted to have pneumonia for CTA in the lower lobes. Patient has been started on ceftriaxone and azithromycin. Patient was also started on IV fluids for sodium. Once patient was started back on his home medications and pain medications per his home regimen sodium did fall back down 125. Urine sodium did show 86. Patient was started on sodium tabs as this is most likely related to his chronic pain medicine use. Confusion seems to be improved patient is A&O x4. Head CT was done and showed no acute abnormalities in a
[2023-01-05 08:29] LABS: Glucose Point of Care 160 mg/dl (65-105)
[2023-01-05] MEDS: ENOXAPARIN 40 MG/0.4 ML SYRINGE SUB-Q (08:40)
[2023-01-05] MEDS: CALCITONIN NASAL 200 UNITS/SPRAY 3.7 ML BOTTLE 1 SPRAY NASAL (08:40)
[2023-01-05] MEDS: SODIUM CHLORIDE 1 GM TABLET PO (08:40)
[2023-01-05] MEDS: ASPIRIN 81 MG CHEWABLE TABLET PO (08:40)
[2023-01-05] MEDS: DOCUSATE SODIUM 100 MG CAPSULE PO (08:40)
[2023-01-05] MEDS: METOPROLOL TARTRATE 25 MG TABLET PO (08:41)
[2023-01-05] MEDS: ATORVASTATIN 10 MG TABLET PO (08:41)
[2023-01-05] MEDS: oxyCODONE HCL (*CRX) 10 MG TAB SR 12HR PO (08:46)
[2023-01-05] MEDS: NEOMYCIN/POLYMYXIN/BACITRACIN OINTMENT PACKET 1 PACKET (11:10)
[2023-01-05] MEDS: HEPARIN SODIUM LOCK FLUSH 500 UNITS/5 ML SYRINGE IV PUSH (11:11)
[2023-01-05] MEDS: CEFDINIR 300 MG CAPSULE PO (11:50)
[2023-01-05] MEDS: AZITHROMYCIN 250 MG TABLET PO (11:50)
[2023-01-05 11:52] LABS: Glucose Point of Care 210 mg/dl (65-105)
[2023-01-05] MEDS: INSULIN ASPART (*BKC) 100 UNITS/ML SUB-Q (11:53)
== END 2023-01-05 13:00 | disposition home health service (06) | DRG 640 ==
LOC: ANHED 21:00 → ANH2MED 22:00
PROVIDERS: Emergency Medicine; Nurse Practitioner; Admitting Provider Internal Medicine; Emergency Provider Physician Assistant; PCP Family Medicine Adolescent Medicine; Visit Provider Nurse Practitioner
DX: E87.1 Hypo-osmolality and hyponatremia (principal); G93.41 Metabolic encephalopathy; J18.9 Pneumonia, unspecified organism; C34.90 Malignant neoplasm of unspecified part of unspecified bronchus or lung; C78.7 Secondary malignant neoplasm of liver and intrahepatic bile duct; E87.3 Alkalosis; E78.5 Hyperlipidemia, unspecified; E11.9 Type 2 diabetes mellitus without complications; E87.8 Other disorders of electrolyte and fluid balance, not elsewhere classified; E83.51 Hypocalcemia; I25.10 Atherosclerotic heart disease of native coronary artery without angina pectoris; I25.2 Old myocardial infarction; I10 Essential (primary) hypertension; J61 Pneumoconiosis due to asbestos and other mineral fibers; Z20.822 Contact with and (suspected) exposure to COVID-19; Z92.21 Personal history of antineoplastic chemotherapy; Z92.3 Personal history of irradiation; Z79.84 Long term (current) use of oral hypoglycemic drugs; Z77.090 Contact with and (suspected) exposure to asbestos; Z85.831 Personal history of malignant neoplasm of soft tissue; Z79.82 Long term (current) use of aspirin; Z95.5 Presence of coronary angioplasty implant and graft; Z96.653 Presence of artificial knee joint, bilateral; Z87.891 Personal history of nicotine dependence
CPT/HCPCS: 36415; 36600; 70450; 71046; 71275; 80053; 81001; 82570; 82805; 82948; 83036; 83605; 83690; 83735; 83935; 84300; 84443; 84484; 84540; 85025; 85610; 85730; 86140; 87040; 87636; 93005; 94640; 96365; 96367; 97161; 97530; 99285; A9270; J0131; J0456; J0696; J1642; J1650; J1815; J3475; J7030; Q9967

== ENCOUNTER 2023-09-11 18:05 | Inpatient (IN) | payer MEDICARE, SELFPAY ==
--- NOTE | ~2023-09-11 | CT_ITS ---
EXAMINATION: CT brain wo con DATE: 09/11/2023 20:38 INDICATION: Altered mental status. TECHNIQUE: Computed tomography (CT) of the head was performed without intravenous contrast. The mA wa s adjusted according to patient size. Iterative reconstruction technique was employed. The dose-lengt h product was 605.33 mGy-cm. 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 There are scattered areas of low attenuat ion in the cerebral white matter. There is no intracranial hemorrhage, acute infarction, or abnormal intracranial mass lesion. The ventricles are normal in size. There are likely changes of ocular lens replacement surgeries. There is mild mucosal thickening in the paranasal sinuses. The mastoid air wolfgang ls are normal. IMPRESSION: 1. Small old infarct in right cerebellum. 2. Stable moderate nonspecific cerebral white matter disease, which likely represents chronic small v essel ischemic disease. Reviewed, dictated and finalized at location E. IT SPECIALIST IMPRESSION: 1. Small old infarct in right cerebellum. 2. Stable moderate nonspecific cerebral white matter disease, which likely repr esents chronic small vessel ischemic disease.
--- NOTE | ~2023-09-11 | US_ITS ---
EXAMINATION: US venous doppler UE RT DATE: 09/15/2023 21:36 INDICATION: Right upper limb swelling and edema TECHNIQUE: Grayscale images without and with compression and Doppler images of the right upper extrem ity veins were obtained. COMPARISON: None. FINDINGS: There is noncompressible occlusive thrombus in the mid to distal right cephalic vein. The right inter nal jugular vein, subclavian vein, axillary vein, brachial vein, basilic vein, proximal cephalic vein , radial vein, and ulnar vein are patent. IMPRESSION: 1. Occlusive appearing deep venous thrombosis in the mid to distal right cephalic vein. Findings were discussed with Taran Daniel, the nurse caring for the patient, at 10:35 PM. Reviewed, dictated and finalized at location A. SUSPENDER CUTTER IMPRESSION: 1. Occlusive appearing deep venous thrombosis in the mid to distal right cephal ic vein. Findings were discussed with Taran Daniel, the nurse caring for the patie nt, at 10:35 PM.
--- NOTE | ~2023-09-11 | XR_ITS ---
Portable chest x-ray Comparison: 09/16/2023 Clinical History: Shortness of breath Findings: Left-sided Mediport unchanged. Stable hazy opacification of the left upper lobe region. Di ffuse consolidation and interstitial pulmonary disease otherwise unchanged. Calcified pleural plaques are unchanged. Cardiomediastinal silhouette is stable. Bones and soft tissues are unremarkable. Impression: Overall, no interval change from prior exam. Stable probable loculated pleural effusion at the left lung apex region. Diffuse alveolar and interstitial pulmonary disease otherwise. Correlate for pulmonary edema, pneumon ia, and/or chronic interstitial disease. Calcified pleural plaques. Stable Mediport. Reviewed, dictated and finalized at location . ERGARTEN INSTRUCTIONAL ASSISTANT Impression: Overall, no interval change from prior exam. Stable probable loculated pleural effusion at the left lung apex region. Diffuse alveolar and interstitial pulmonary disease otherwise. Correlate for pu lmonary edema, pneumonia, and/or chronic interstitial disease. Calcified pleural plaques. Stable Mediport.
--- NOTE | ~2023-09-11 | XR_ITS ---
Portable chest x-ray Comparison: 09/11/2023 Clinical History: Evaluate Mediport Findings: Left-sided Mediport is in satisfactory position. Extensive hazy bilateral airspace consoli dation is present. There is vague opacity at the left lung apex, which could reflect layering or locu lated effusion. Stable calcified pleural plaques. Cardiomediastinal silhouette is stable. Bones and soft tissues are unremarkable. Impression: Left-sided Mediport remains in place. Extensive hazy airspace consolidation bilaterally. Correlate for pulmonary edema or infection. Suspected layering or loculated effusion at the left lung apex region. Stable calcified pleural plaques. Reviewed, dictated and finalized at location . CTOR OF FLIGHT OPERATIONS Impression: Left-sided Mediport remains in place. Extensive hazy airspace consolidation bilaterally. Correlate for pulmonary rodrigo a or infection. Suspected layering or loculated effusion at the left lung apex region. Stable calcified pleural plaques.
--- NOTE | ~2023-09-11 | XR_ITS ---
XR chest 1V portable DATE: 09/17/2023 09:26 INDICATION: Tachypnea TECHNIQUE: Portable AP chest on 09/17/2023 at 0913 hours COMPARISON: 09/17/2023 portable AP chest at 0 2520 hours FINDINGS: There are increased extensive patchy consolidating infiltrates throughout both lungs since 0252 hours today, suggesting increased pulmonary edema. There is thickening of minor fissure suggesti ng subpleural edema. Persistent opacification of the left upper lung field. Bilateral pleural calcifications suggesting prior asbestos exposure. Right Port-A-Cath catheter tip is situated overlying the superior vena cava. IMPRESSION: Increased bilateral pulmonary infiltrates suggesting worsening severe pulmonary edema Reviewed, dictated and finalized at location B. LANE PATROLLER IMPRESSION: Increased bilateral pulmonary infiltrates suggesting worsening zoë re pulmonary edema
--- NOTE | ~2023-09-11 | CT_ITS ---
EXAMINATION: CTA chest PE protocol DATE: 09/13/2023 12:21 INDICATION: Shortness of breath. Liposarcoma. TECHNIQUE: Computed tomography angiography (CTA) of the chest was performed with 100 mL Omnipaque-350 intravenous contrast timed to evaluate the pulmonary arteries. Coronal maximum intensity projection 3D-reconstructions were created by the technologist. Automated exposure control and iterative reconst ruction technique were employed. The dose-length product was 266.45 mGy-cm. COMPARISON: Chest CT 01/02/2023 FINDINGS: There are calcified pleural plaques bilaterally, which may be seen with asbestosis exposure . There are small pleural effusions, left worse than right. There is widespread septal thickening in the lungs with a peripheral predominance associated with groundglass opacities. There are airspace op acities with volume loss and architectural distortion in left upper lobe and superior segment left lo wer lobe, likely radiation fibrosis. The heart size is normal. There are coronary artery calcificatio ns. No pericardial effusion. There is no pulmonary embolus. There is a small volume of ascites. There are ill-defined masses in the liver measuring up to 6.6 cm. There is a 2.6 cm mass in the right retr operitoneal fat, worsened from 16 mm on 01/02/2023. There is severe thoracic spondylosis. There is old fracture of T1 spinous process with nonunion. There are old fractures of T5, T7, L1, and L2 vertebral bodies. There is a right internal jugular port with tip in superior vena cava. IMPRESSION: 1. No pulmonary embolus. 2. Diffuse lung disease, likely mild pulmonary edema superimposed on chronic interstitial lung diseas e. 3. Stable radiation fibrosis in left upper lobe and superior segment left lower lobe. 4. Small pleural effusions. 5. Liver masses and retroperitoneal mass, consistent with metastatic disease. 6. Small volume of ascites. Reviewed, dictated and finalized at location A. ERVATION OF RESOURCES COMMISSIONER IMPRESSION: 1. No pulmonary embolus. 2. Diffuse lung disease, likely mild pulmonary edema superimposed on chronic in terstitial lung disease. 3. Stable radiation fibrosis in left upper lobe and superior segment left lower lobe. 4. Small pleural effusions. 5. Liver masses and retroperitoneal mass, consistent with metastatic disease. 6. Small volume of ascites.
--- NOTE | ~2023-09-11 | XR_ITS ---
Portable chest x-ray Comparison: 09/15/2023 Clinical History: Pneumonia, leiomyosarcoma Findings: Right-sided Mediport is unchanged. Extensive haziness at the left lung apex region is unch anged. Diffuse hazy and interstitial pulmonary disease otherwise is unchanged. Stable calcified pleur al plaques. Cardiomediastinal silhouette is stable. Bones and soft tissues are unremarkable. Impression: Stable diffuse hazy and interstitial pulmonary disease. Correlate for pulmonary edema, infection, and /or chronic interstitial disease. Stable haziness of left lung apex, suggestive of layering and/or loculated effusion. Calcified pleural plaques. Stable Mediport. Reviewed, dictated and finalized at location . UCTION CLERK Impression: Stable diffuse hazy and interstitial pulmonary disease. Correlate for pulmonary edema, infection, and/or chronic interstitial disease. Stable haziness of left lung apex, suggestive of layering and/or loculated effu chucho. Calcified pleural plaques. Stable Mediport.
--- NOTE | ~2023-09-11 | XR_ITS ---
EXAMINATION: XR chest 2V DATE: 09/11/2023 20:10 INDICATION: Cough. Altered mental status. TECHNIQUE: Frontal and lateral views of the chest were obtained. COMPARISON: Chest 2 views 01/10/2023, chest CT 01/02/2023 FINDINGS: There are calcified pleural plaques bilaterally, which may be seen with asbestosis exposure . There are airspace opacities in right lower lung zone and left mid and lower lung zones. No pleural effusion or pneumothorax. The heart size is normal. There is a right internal jugular port with tip in superior vena cava. There are suture anchors in left humeral head. IMPRESSION: 1. Airspace opacities in right lower lung zone and left mid and lower lung zones with worsening in le ft lower lung zone, likely a combination of chronic interstitial lung disease, left midlung zone radi ation fibrosis, and left basilar atelectasis/scarring versus pneumonia. Reviewed, dictated and finalized at location E. NT PROFESSIONAL IMPRESSION: 1. Airspace opacities in right lower lung zone and left mid and lower lung zone s with worsening in left lower lung zone, likely a combination of chronic inter stitial lung disease, left midlung zone radiation fibrosis, and left basilar at electasis/scarring versus pneumonia.
[2023-09-11 18:06] VITALS: BP 125/84; PULSE 98; RESP 16; TEMP 36.9; O2SAT 96
--- NOTE | 2023-09-11 18:12 | ECG_ITS ---
Measurements Intervals [place] Rate: 94 P: 84 DE: 179 QRS: 27 QRSD: 91 T: 0 QT: 367 QTc: 459 Interpretive Statements SINUS RHYTHM WITH SINUS ARRHYTHMIA BORDERLINE ST-T WAVE ABNORMALITY- ANT/INF LEADS BASELINE WANDER- III, V6 BORDERLINE ECG COMPARED TO ECG 01/02/2023 18:53:27 SINUS ARRHYTHMIA NOW PRESENT Electronically Signed On 09-11-2023 18:49:04 [employer]ICAL [employer] TECH IN[employer]CTOR by Hayden Starks D.O.
[2023-09-11 18:58] LABS: Hematocrit 27.8 % (42.0-52.0); Hemoglobin 9.2 g/dL (14.0-18.0); Mean Corpuscular HGB Conc 33.1 g/dl (32-36); Mean Corpuscular Hemoglobin 30.7 pg (26-34); Mean Corpuscular Volume 92.7 fl (80-100); Mean Platelet Volume 10.6 fl (7.4-10.4); Platelet Count Result 41 k/mm3 (150-375); Red Cell Distribution Width 14.3 % (11.5-14.5)
[2023-09-11 19:06] LABS: Alanine Aminotransferase 18 U/L (6-50); Alkaline Phosphatase 83 U/L (38-126); Anion Gap 9 mmol/L (8-16); Aspartate Amino Transferase 20 U/L (17-59); Bilirubin,Total 0.8 mg/dL (0.2-1.3); Blood Urea Nitrogen 30 mg/dL (9-20); Carbon Dioxide 21 mmol/L (22-30); Chloride 98 mmol/L (98-107); Estimated CRCL calculation 70 ml/min; Estimated Glomerular Filt Rate > 60; Glucose 181 mg/dL (65-110); Potassium 4.2 mmol/L (3.4-5.0); Sodium 128 mmol/L (137-145)
[2023-09-11 19:49] LABS: White Blood Count 0.4 K/mm3 (4.5-10.0)
[2023-09-11 19:56] VITALS: PULSE 88
--- NOTE | 2023-09-11 19:59 | ED.WEAKNESS ---
HPI - Weakness General Chief complaint: Weakness Stated complaint: ams Time Seen by Provider: 09/11/23 19:12 Source: patient and family (son in person and daughter by phone) History of Present Illness HPI Narrative: This is an 88-year-old male with past medical history of lung and liver cancer and asbestosis who presents to the emergency department with complaint of feeling weak. Patient last underwent chemotherapy a week ago on . At baseline he is fairly active. His last known well is Friday when his son spoke with him and states he was sharp then. Patient states he did go to the [facility] to work out on Friday but he did leave early because he was not feeling well. He had an acute worsening of generally feeling unwell today. He denies any chest pain, abdominal pain, or difficulty breathing. He does state he has had a dry nonproductive cough. He denies any change in bowel or bladder. His last oral intake was ham and eggs at 12 PM when his son showed up. He also drank a liter of pedialyte at this time. His son believes he is likely dehydrated. It was noted that the last medications that patient had taken were his Friday morning medications none thereafter. He states he has had a headache. He received his COVID and flu boosters 2 weeks ago. Related Data Home Medications Medication Instructions Recorded Confirmed aspirin 81 mg chewable tablet 81 mg PO DAILY 10/20/19 04/17/23 psyllium husk 3.4 gram/5.4 gram 1 tbsp PO DAILY PRN Constipation 01/30/22 04/17/23 oral powder (Metamucil) acetaminophen 650 mg tablet 650 mg PO Q4H 01/03/23 04/17/23 docusate sodium 100 mg tablet 100 mg PO BID 01/03/23 04/17/23 Allergies Allergy/AdvReac Type Severity Reaction Status Date / Time No Known Allergies Allergy Mild Verified 09/11/23 18:53 [facility] Past Medical History Medical History Acute respiratory alkalosis Asbestosis Atherosclerosis of aorta Bilateral carotid artery stenosis Brain TIA CAD (coronary artery disease) Hematuria Hyperlipidemia Hypertension Hyponatremia Lung cancer Occlusion and stenosis of bilateral carotid arteries [place] (myocardial infarction) Surgical History Surgical History History of coronary angioplasty with insertion of stent History of total left knee replacement History of total right knee replacement Hx of repair of left rotator cuff Stented coronary artery Family History Family History Mother Cancer Skin cancer (melanoma) Father Heart disease Social History Social History (Updated 09/11/23 @ 21:47 by Dorene Arana MD) Social History: the patient is . he has a son and daughter. 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 The patient resides by himself. His daughter lives in [place] Smoking packs per day: 0.2 Smoking cigarettes per day: 4.0 Years smoked: 22 Smoking pack-years: 4.40 Smoking status: Former smoker Tobacco type: cigarettes Second hand tobacco smoke exposure: No Smoking end date: 11/02/82 Alcohol intake: never Substance use: never Substance use type: does not use Lack of Transportation: No Lack of Food: Never True Current Housing: I Have Housing Concerned About Future Housing: No Difficulty Paying Gas/Electric Bills: No Difficulty Paying for Meds: No Currently Unemployed: No Education: High School Diploma/GED Difficulty w/ Childcare or Family Care: No Living arrangements: alone Occupation/Education: retired Gender identity (if verbalized by the patient): Male Spiritual care concerns: No Agree to blood products: Yes Exam Narrative: GENERAL: well-nourished, and in no acute distress. HEAD: Normocephalic, atraumatic. ENT: Nares clear, no rhinorrhea or epistaxis. Mucous membranes moist. NECK: Supple.
[2023-09-11 20:03] LABS: Lymphocytes Absolute Manual 0.16 K/mm3 (1.1-4.5); Lymphocytes Percent Manual 40 % (18-44); Monocytes Absolute Manual 0.08 K/mm3 (0.1-0.90); Monocytes Percent Manual 20 % (3-9); Neutrophils Percent Manual 40 % (46-73); Ovalocytes 1+ (NORMAL); Platelet Estimate Decreased (Adequate); Schistocytes None Seen (NORMAL); Total Cells Counted 5
[2023-09-11 20:12] LABS: Magnesium 1.4 mg/dL (1.6-2.3); Phosphorus 2.6 mg/dL (2.5-4.5)
[2023-09-11 20:25] LABS: Troponin I 0.014 ng/mL (0.000-0.034)
[2023-09-11] MEDS: MAGNESIUM SULF 1 GM/D5W 100 ML 1 GM/100 ML BAG IVPB (21:06)
[2023-09-11 21:07] VITALS: BP 111/65; PULSE 87; RESP 24; TEMP 36.4; O2SAT 90
[2023-09-11 21:10] LABS: Appearance Urine Clear (Clear); Bacteria Urine None Seen /hpf; Bilirubin Urine Negative (Negative); Blood Urine Negative (Negative); Color Urine Dark Yellow (Yellow); Glucose Urine UA Negative (Negative); Ketones Urine Trace mg/dL (Negative); Leukocyte Esterase Ur Negative LEU/UL (Negative); Nitrate Urine Negative (Negative); Non Pathogenic Casts 0-2; Protein Urine 1+ mg/dL (Negative); Specific Grav Ur 1.026 (1.001-1.035); Squamous Epithelial Cell Urine None seen /hpf (Few); WBC Urine 0-5 /hpf; pH Urine 5.5 (5.0-9.0)
[2023-09-11 21:18] LABS: Add Urine Microscopic? YES
[2023-09-11] MEDS: CEFEPIME 1 GM/NS 50 ML 1 GM/50 ML BAG IVPB (22:23)
--- NOTE | 2023-09-11 22:37 | PM.IMHP ---
H&P: HPI History of Present Illness Date/Time: 09/11/23 22:37 Chief Complaint: weakness Narrative: 88-year-old male with past medical history of lung and liver cancer and asbestosis who presents to the emergency department with complaint of feeling weak.? Patient last underwent chemotherapy a week ago on .? At baseline he is fairly active.? His last known well is Friday when his son spoke with him and states he was sharp then.? Patient states he did go to the [facility] to work out on Friday but he did leave early because he was not feeling well.? He had an acute worsening of generally feeling unwell today.? He denies any chest pain, abdominal pain, or difficulty breathing.? He does state he has had a dry nonproductive cough.? He denies any change in bowel or bladder.? His last oral intake was ham and eggs at 12 PM when his son showed up.? He also drank a liter of pedialyte at this time.? His son believes he is likely dehydrated.? It was noted that the last medications that patient had taken were his Friday morning medications none thereafter.? He states he has had a headache.? He received his COVID and flu boosters 2 weeks ago. Evaluation in the Ed showed that he is hyponatremic - 128, leukopenic and neutropenic and this is all new compared to prior labs, CXR is suspicious of pneumonia, CT head is negativ, there is no focal deficit. . Review of Systems Review of Systems: All systems reviewed & are unremarkable except as noted in HPI and below PMFSH Past Medical History Medical History Acute respiratory alkalosis Asbestosis Atherosclerosis of aorta Bilateral carotid artery stenosis Brain TIA CAD (coronary artery disease) Hematuria Hyperlipidemia Hypertension Hyponatremia Lung cancer Occlusion and stenosis of bilateral carotid arteries [place] (myocardial infarction) Surgical History Surgical History History of coronary angioplasty with insertion of stent History of total left knee replacement History of total right knee replacement Hx of repair of left rotator cuff Stented coronary artery Family History Family History Mother Cancer Skin cancer (melanoma) Father Heart disease Social History Social History (Updated 09/11/23 @ 21:47 by Dorene Arana MD) Social History: the patient is . he has a son and daughter. 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 The patient resides by himself. His daughter lives in [place] Smoking packs per day: 0.2 Smoking cigarettes per day: 4.0 Years smoked: 22 Smoking pack-years: 4.40 Smoking status: Former smoker Tobacco type: cigarettes Second hand tobacco smoke exposure: No Smoking end date: 11/02/82 Alcohol intake: never Substance use: never Substance use type: does not use Lack of Transportation: No Lack of Food: Never True Current Housing: I Have Housing Concerned About Future Housing: No Difficulty Paying Gas/Electric Bills: No Difficulty Paying for Meds: No Currently Unemployed: No Education: High School Diploma/GED Difficulty w/ Childcare or Family Care: No Living arrangements: alone Occupation/Education: retired Gender identity (if verbalized by the patient): Male Spiritual care concerns: No Agree to blood products: Yes Meds Home Medications and Allergies Home Medications Medication Instructions Recorded Confirmed Type aspirin 81 mg chewable tablet 81 mg PO DAILY 10/20/19 09/12/23 History psyllium husk 3.4 gram/5.4 gram 1 tbsp PO DAILY PRN Constipation 01/30/22 09/12/23 History oral powder (Metamucil) acetaminophen 650 mg tablet 650 mg PO Q4H PRN Pain (Scale 01/03/23 09/12/23 History Score 1-3) docusate sodium 100 mg tablet 100 mg PO BID 01/03/23 09/12/23 History amlodipine 2.5 mg tablet 2.5 mg
[2023-09-11] MEDS: SODIUM CHLORIDE 0.9% IV 1,000 ML 125 ML IV CONT (23:14)
[2023-09-11 23:15] LABS: Lactic Acid Reflex 1.9 mmol/L (0.7-2.0)
[2023-09-11 23:16] VITALS: BP 103/56; PULSE 96; RESP 22; TEMP 36.4; O2SAT 97
[2023-09-11 23:21] LABS: Magnesium 1.5 mg/dL (1.6-2.3)
[2023-09-11 23:45] LABS: MRSA (PCR) NOT DETECTED (NOT DETECTE)
[2023-09-12] VITALS (13 sets, daily range): BP systolic 91–150; BP diastolic 51–79; PULSE 91–105; RESP 15–20; TEMP 36.3–37.9; O2SAT 95–100; BMI 24.1
[2023-09-12 00:02] LABS: Influenza A QL RT-PCR Negative (Negative); Influenza B QL RT-PCR Negative (Negative); SARS-CoV-2 RNA PCR Negative (Negative)
[2023-09-12] MEDS: SODIUM CHLORIDE 0.9% IV 1,000 ML 999 ML IV CONT (03:38)
--- NOTE | 2023-09-12 04:46 | ADMGEN ---
This patient, Nawaf Lassiter, was admitted to [facility] Surg Room 302-01. Patient/family oriented to hospital policies and general routines including ID bracelet, bed and alarms, visiting hours, pain management, procedures, bathroom and other care routines, personal items, smoking policy, room service/diet, and visiting hours. Information on how to activate the Rapid Response Team has been discussed. Patient/Family are encouraged to report perceived risks to care and to ask questions if they do not understand what they are told or what they should do.
[2023-09-12] MEDS: CEFEPIME 2 GM/NS 50 ML 2 GM/50 ML BAG IVPB ×3 (05:34→20:16)
[2023-09-12] MEDS: SODIUM CHLORIDE 0.9% IV 1,000 ML 125 ML IV CONT ×2 (05:34→20:17)
[2023-09-12 07:26] LABS: Eosinophils Percent Auto 3.1 % (0-4.4); Hematocrit 24.2 % (42.0-52.0); Hemoglobin 8.1 g/dL (14.0-18.0); Immature Granulocyte Absolute 0.01 K/mm3 (0.00-0.031); Immature Granulocyte Percent A 3.1 % (0-0.5); Immature Platelet Fraction Pct 4.5 % (0.9-11.2); Lymphocytes Absolute Auto 0.09 K/mm3 (0.9-3.2); Lymphocytes Percent Auto 28.1 % (18.3-44.2); Mean Corpuscular HGB Conc 33.5 g/dl (32-36); Mean Corpuscular Hemoglobin 30.9 pg (26-34); Mean Corpuscular Volume 92.4 fl (80-100); Mean Platelet Volume 12.2 fl (7.4-10.4); Monocytes Absolute Auto 0.1 K/mm3 (0.1-0.6); Monocytes Percent Auto 21.9 % (2.6-8.5); Neutrophils Absolute Auto 0.1 K/mm3 (1.3-6.7); Neutrophils Percent Auto 43.8 % (45.5-73.1); Platelet Count Result 28 k/mm3 (150-375); Red Blood Count 2.62 M/mm3 (4.6-6.20); Red Cell Distribution Width 14.2 % (11.5-14.5)
[2023-09-12 07:32] LABS: Anion Gap 6 mmol/L (8-16); Blood Urea Nitrogen 22 mg/dL (9-20); Calcium 7.2 mg/dL (8.4-10.2); Carbon Dioxide 21 mmol/L (22-30); Chloride 102 mmol/L (98-107); Estimated CRCL calculation 70 ml/min; Estimated Glomerular Filt Rate > 60; Glucose 139 mg/dL (65-110); Potassium 3.7 mmol/L (3.4-5.0); Sodium 129 mmol/L (137-145)
[2023-09-12 08:15] LABS: White Blood Count 0.3 K/mm3 (4.5-10.0)
[2023-09-12 08:17] LABS: Ovalocytes 1+ (NORMAL); Platelet Estimate Decreased (Adequate); Schistocytes None Seen (NORMAL)
--- NOTE | 2023-09-12 08:41 | PM.IMPN ---
Progress Note: A&P Assessment and Plan (1) Encephalopathy: Code(s): G93.40 - Encephalopathy, unspecified Status: Acute (2) Hyponatremia: Code(s): E87.1 - Hypo-osmolality and hyponatremia Status: Acute (3) Pneumonia: Code(s): J18.9 - Pneumonia, unspecified organism Status: Acute (4) Hypomagnesemia: Code(s): E83.42 - Hypomagnesemia Status: Acute (5) Pancytopenia: Code(s): D61.818 - Other pancytopenia Status: Acute (6) Severe sepsis: Code(s): A41.9 - Sepsis, unspecified organism; R65.20 - Severe sepsis without septic shock Status: Acute (7) Multifocal pneumonia: Code(s): J18.9 - Pneumonia, unspecified organism Status: Acute Plan Multifocal pneumonia Patient has history of lung cancer Came to ED with general weakness Chest x-ray shows multifocal pneumonia Patient's leukopenia 0.3 K Continue vancomycin and cefepime, Consult family development specialist and oncologist for evaluation treatment Severe sepsis Patient has hypotension, tachycardia leukopenia, possible sepsis due to pneumonia Antibiotics see above Start fluid resuscitation Follow-up blood culture Hypotension, hyponatremia dehydration Possible due to poor oral intake Start normal saline IV Pancytopenia Patient has a profound leukopenia and thrombocytopenia Likely resulting from chemotherapy for liver cancer last week Consult heme oncologist for evaluation continue IV hydration, get morning labs. correct electrolytes Subjective Date/time seen: 09/12/23 08:41 Interval history: Patient is a poor historian, discussed the case with patient's daughter on the phone call. Per patient daughter, patient received chemotherapy last week for liver cancer in [facility]. In past few days, patient has been feeling weak. When I saw exam patient, patient has complaining of acid reflux and epigastric pain, denies abdomen pain, nausea vomiting. Patient still has some cough with scant phlegm. Patient is afebrile over the night, blood pressure was low Exam Narrative: GENERAL:? well-nourished, and in no acute distress. HEAD: Normocephalic, atraumatic. ENT: Nares clear, no rhinorrhea or epistaxis.? Mucous membranes moist. NECK: Supple. CHEST: Clear to auscultation.? No respiratory distress. HEART: Regular rate and rhythm.?grade 2 systolic murmur at the aortic area. ABDOMEN: Soft, nontender, nondistended. EXTREMITIES: Normal range of motion.? SKIN: Warm, dry, no rash, port in place with no surrounding erythema or tenderness NEURO: No focal deficits.? Alert and oriented to self and location but not details of health history or acute events/situation PSYCH: Normal mood and affect. Objective Data Vital Signs Vital Signs: Vital Signs - 24 hr 09/11/23 18:06 09/11/23 19:56 09/11/23 21:07 Temperature 98.5 F 97.5 F L Pulse Rate 98 88 87 Respiratory Rate 16 24 H Blood Pressure 125/84 111/65 Pulse Oximetry 96 90 Oxygen Delivery 09/11/23 23:16 09/12/23 00:15 09/12/23 01:32 Temperature 97.6 F Pulse Rate 96 105 H 100 Respiratory Rate 22 H 20 Blood Pressure 103/56 L 150/79 H 91/51 L Pulse Oximetry 97 100 95 Oxygen Delivery 09/12/23 03:04 09/12/23 04:00 09/12/23 04:10 Temperature Pulse Rate 98 99 100 Respiratory Rate 18 15 19 Blood Pressure 94/53 L 95/56 L 107/64 Pulse Oximetry 96 98 97 Oxygen Delivery 09/12/23 05:07 09/12/23 06:00 Temperature 97.9 F Pulse Rate 100 Respiratory Rate 16 Blood Pressure 93/52 L Pulse Oximetry 96 Oxygen Delivery Room Air Intake/Output Intake/Output: Intake & Output 09/09/23 09/10/23 09/11/23 09/12/23 23:59 23:59 23:59 23:59 Intake Total 150 2500 Balance 150 2500 Meds/Results Medications: Active Medications Generic Name Dose Route Start Last Admin Trade Name Freq PRN Reason Stop Dose Admin Acetaminophen 650 mg 09/11/23 21:25 Acetaminophen 325 Mg Tablet PO Q4H PRN Mild Pain (1-3) o
--- NOTE | 2023-09-12 14:59 | PM.CNPUL ---
History of Present Illness History of Present Illness Consult date: 09/15/23 Requesting physician: Aniceto Nguyen MD Chief complaint: Leukopenia/Poss Pneumonia/Hypomagnesemia Narrative: patient not available [facility] Past Medical History Medical History Acute respiratory alkalosis Asbestosis Atherosclerosis of aorta Bilateral carotid artery stenosis Brain TIA CAD (coronary artery disease) Hematuria Hyperlipidemia Hypertension Hyponatremia Lung cancer Occlusion and stenosis of bilateral carotid arteries [place] (myocardial infarction) Surgical History Surgical History History of coronary angioplasty with insertion of stent History of total left knee replacement History of total right knee replacement Hx of repair of left rotator cuff Stented coronary artery Family History Family History Mother Cancer Skin cancer (melanoma) Father Heart disease Social History Social History (Updated 09/11/23 @ 21:47 by Dorene Arana MD) Social History: the patient is . he has a son and daughter. 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 The patient resides by himself. His daughter lives in [place] Smoking packs per day: 0.2 Smoking cigarettes per day: 4.0 Years smoked: 22 Smoking pack-years: 4.40 Smoking status: Former smoker Tobacco type: cigarettes Second hand tobacco smoke exposure: No Smoking end date: 11/02/82 Alcohol intake: never Substance use: never Substance use type: does not use Lack of Transportation: No Lack of Food: Never True Current Housing: I Have Housing Concerned About Future Housing: No Difficulty Paying Gas/Electric Bills: No Difficulty Paying for Meds: No Currently Unemployed: No Education: High School Diploma/GED Difficulty w/ Childcare or Family Care: No Living arrangements: alone Occupation/Education: retired Gender identity (if verbalized by the patient): Male Spiritual care concerns: No Agree to blood products: Yes Meds Home Medications and Allergies Home Medications Medication Instructions Recorded Confirmed Type aspirin 81 mg chewable tablet 81 mg PO DAILY 10/20/19 09/12/23 History psyllium husk 3.4 gram/5.4 gram 1 tbsp PO DAILY PRN Constipation 01/30/22 09/12/23 History oral powder (Metamucil) acetaminophen 650 mg tablet 650 mg PO Q4H PRN Pain (Scale 01/03/23 09/12/23 History Score 1-3) docusate sodium 100 mg tablet 100 mg PO BID 01/03/23 09/12/23 History amlodipine 2.5 mg tablet 2.5 mg PO DAILY #30 tabs 01/05/23 09/12/23 Rx blood sugar diagnostic (OneTouch #100 ea 01/13/23 09/12/23 Rx Ultra Test strips) lancets 33 gauge (OneTouch Delica #100 ea 01/22/23 09/12/23 Rx Lancets) hydrocodone bitartrate 20 mg 20 mg PO DAILY #30 tabs 04/10/23 09/12/23 Rx tablet,crush resist,extended rel. 24hr ([facility]) atorvastatin 10 mg tablet 10 mg PO DAILY #90 tabs 04/17/23 09/12/23 Rx metoprolol tartrate 25 mg tablet 25 mg PO BID #180 tabs 04/17/23 09/12/23 Rx omeprazole 20 mg capsule,delayed 20 mg PO DAILY #90 caps 04/17/23 09/12/23 Rx release calcitonin (salmon) 200 See Rx Instructions .Route 05/14/23 09/12/23 Rx unit/actuation nasal spray .COMPLEX #11.1 mL metformin 500 mg tablet,extended 500 mg PO DAILY #90 tabs 06/11/23 09/12/23 Rx release 24 hr lidocaine HCl 2 % mucosal solution 10 ml PO Q4H PRN Mouth Pain 09/12/23 09/12/23 History (Lidocaine Viscous) naproxen 500 mg tablet 500 mg PO BID PRN Pain (Scale 09/12/23 09/12/23 History Score 4-6) sodium chloride 1,000 mg soluble 2,000 mg PO DAILY 09/12/23 09/12/23 History tablet Allergies Allergy/AdvReac Type Severity Reaction Status Date / Time No Known Allergies Allergy Mild Verified 09/11/23 18:53 Vital Signs Vital Signs - 24 hr 09/11/23 1
[2023-09-12] MEDS: PANTOPRAZOLE 40 MG TABLET PO (15:11)
[2023-09-12] MEDS: ACETAMINOPHEN 325 MG TABLET 650 MG PO (16:24)
[2023-09-12] MEDS: VANCOMYCIN 1,250 MG/NS 250 ML 1,250 MG/250 ML BAG 166.67 MG IVPB (17:13)
--- NOTE | 2023-09-12 17:21 | PDONCCN ---
HPI - Date of Consult Date/Time: 09/12/23 17:21 Requesting Physician: Vero Mann MD Primary Care Provider: Manuel Earl MD - Consult Narrative Reason for consult: Non-small cell lung cancer with pancytopenia Narrative: Nawaf Lassiter is a 88 year old male who is a poor historian. History was obtained from the [id number]. According to her she he was diagnosed with lung cancer with metastasis to the liver and kidney about 2 years ago and currently on chemotherapy on every 3 weeks basis at [facility]. His last chemotherapy was about a week ago. His son went to see him and he was behaving infuse. He was complaining of generalized tiredness and fatigue. Chest x-ray done here showed finding suspicious for a number so negative. Blood showed pancytopenia. Patient also received COVID and flu booster is about 2 weeks. Labs showed hemoglobin of 8.1 WBC count [place] 0[place]3 [place] [address]. There was no bleeding and bruising. Review of Systems - Review of Systems All systems reviewed & are unremarkable except as noted in HPI and [facility] Medical History: Medical History (Last Reviewed 04/17/23 @ 14:57 by María Leigh APRN) Acute respiratory alkalosis Asbestosis Atherosclerosis of aorta Bilateral carotid artery stenosis Brain TIA CAD (coronary artery disease) Hematuria Hyperlipidemia Hypertension Hyponatremia Lung cancer Occlusion and stenosis of bilateral carotid arteries [place] (myocardial infarction) Surgical History: Surgical History (Last Reviewed 04/17/23 @ 14:57 by María Leigh APRN) History of coronary angioplasty with insertion of stent History of total left knee replacement History of total right knee replacement Hx of repair of left rotator cuff Stented coronary artery Family History: Family History (Last Reviewed 09/12/23 @ 04:49 by Jess Aquino RN) Mother Cancer Skin cancer (melanoma) Father Heart disease - Social History Social History: Social History (Last Updated 09/11/23 @ 21:47 by Dorene Arana MD) Gender Identity: Gender identity (if verbalized by the patient): Male Alcohol Use: Alcohol intake: never Substance Use: Substance use: never Substance use type: does not use Others: Spiritual care concerns: No Agree to blood products: Yes Living Arrangements: Living arrangements: alone Oppucation/Education: Occupation/Education: retired Smoking Status: Smoking status: Former smoker Tobacco type: cigarettes Second hand tobacco smoke exposure: No Smoking end date: 11/02/82 Approximate Smoking End Date: 1994 Smoking Pack-years: Smoking packs per day: 0.2 Smoking cigarettes per day: 4.0 Years smoked: 22 Smoking pack-years: 4.40 Social Determinants of Health: Has the Lack of Transportation Kept You From Medical Appointments or From Getting Medications?: No Within the Past 12 Months, Were You Worried Whether Your Food Would Run Out Before You Got Money to Buy More?: Never True What is Your Housing Situation Today?: I Have Housing Are You Worried That in the Next 2 Months, You May Not Have Your Own Housing to Live In?: No Do You Have Trouble Paying Your Heating Or Electricity Bill?: No Do You Have Trouble Paying For Medicines?: No Are You Currently Unemployed and Looking for Work?: No Highest Level of Education Completed: High School Diploma/GED Do You Have Trouble With Childcare or the Care of a Family Member?: No Exam - Vital Signs Vital Signs - 24 hr 09/11/23 18:06 09/11/23 19:56 09/11/23 21:07 Temperature 36.9 C 36.4 C L Pulse Rate 98 88 87 Respiratory Rate 16 24 H Blood Pressure 125/84 111/65 Pulse Oximetry 96 90 Oxygen Delivery 09/11/23 23:16 09/12/23 00:15 09/12/23 01:32 Temperature 36.4 C Pulse Rate 96 105 H 100 Respiratory Rate 22 H 20 Blood Pressure 103/56
[2023-09-12 18:40] LABS: Iron 11 ug/dL (49-181)
[2023-09-12 18:50] LABS: Percent Iron Saturation 7 % (20-50)
[2023-09-12 19:48] LABS: Folic Acid 5.9 ng/mL (2.76->20)
[2023-09-13] VITALS (9 sets, daily range): BP systolic 119–137; BP diastolic 68–79; PULSE 90–109; RESP 16; TEMP 36.6–36.8; O2SAT 94–96
[2023-09-13] MEDS: CEFEPIME 2 GM/NS 50 ML 2 GM/50 ML BAG IVPB ×3 (06:30→21:26)
[2023-09-13] MEDS: SODIUM CHLORIDE 0.9% IV 1,000 ML 125 ML IV CONT ×2 (06:34→21:26)
--- NOTE | 2023-09-13 08:41 | PM.IMPN ---
Progress Note: A&P Assessment and Plan (1) Encephalopathy: Code(s): G93.40 - Encephalopathy, unspecified Status: Acute (2) Hyponatremia: Code(s): E87.1 - Hypo-osmolality and hyponatremia Status: Acute (3) Pneumonia: Code(s): J18.9 - Pneumonia, unspecified organism Status: Acute (4) Hypomagnesemia: Code(s): E83.42 - Hypomagnesemia Status: Acute (5) Pancytopenia: Code(s): D61.818 - Other pancytopenia Status: Acute (6) Severe sepsis: Code(s): A41.9 - Sepsis, unspecified organism; R65.20 - Severe sepsis without septic shock Status: Acute (7) Multifocal pneumonia: Code(s): J18.9 - Pneumonia, unspecified organism Status: Acute Plan Multifocal pneumonia Patient has history of lung cancer Came to ED with general weakness Chest x-ray shows multifocal pneumonia Patient's leukopenia 0.3 K Continue vancomycin and cefepime, Consult field artillery senior sergeant and oncologist for evaluation treatment Severe sepsis Patient has hypotension, tachycardia leukopenia, possible sepsis due to pneumonia Antibiotics see above Start fluid resuscitation Follow-up blood culture, no growth so far Hypotension, hyponatremia dehydration, hypokalemia Possible due to poor oral intake Start normal saline IV Sodium level improving to 133 , and potassium chloride p.o. Follow-up BMP Pancytopenia Patient has a profound leukopenia and thrombocytopenia Likely resulting from chemotherapy for lung cancer metastatic to liver and kidney last week Consult heme oncologist for evaluation Patient heme oncologist consultation, start him on Neupogen 480 mcg subQ daily until ANC is more than 1000. continue IV hydration, get morning labs. correct electrolytes Subjective Date/time seen: 09/13/23 08:41 Interval history: Patient feels better today, afebrile, hemodynamically stable over the night patient still has cough, has a scant phlegm. Afebrile overnight, white blood cell increased to 1.90. Patient received Neupogen yesterday Exam Narrative: GENERAL:? well-nourished, and in no acute distress. HEAD: Normocephalic, atraumatic. ENT: Nares clear, no rhinorrhea or epistaxis.? Mucous membranes moist. NECK: Supple. CHEST: Clear to auscultation.? No respiratory distress. HEART: Regular rate and rhythm.?grade 2 systolic murmur at the aortic area. ABDOMEN: Soft, nontender, nondistended. EXTREMITIES: Normal range of motion.? SKIN: Warm, dry, no rash, port in place with no surrounding erythema or tenderness NEURO: No focal deficits.? Alert and oriented to self and location but not details of health history or acute events/situation PSYCH: Normal mood and affect. Objective Data Vital Signs Vital Signs: Vital Signs - 24 hr 09/12/23 11:35 09/12/23 14:00 09/12/23 16:24 Temperature 100.1 F H 100.2 F H Pulse Rate 100 95 Respiratory Rate 16 16 Blood Pressure 135/63 Pulse Oximetry 96 95 Oxygen Delivery Room Air 09/12/23 17:20 09/12/23 21:35 09/12/23 20:00 Temperature 98.5 F 97.4 F L Pulse Rate 91 93 Respiratory Rate 18 Blood Pressure 118/64 Pulse Oximetry 95 Oxygen Delivery 09/13/23 00:00 09/13/23 04:00 09/13/23 06:00 Temperature 97.8 F Pulse Rate 90 92 90 Respiratory Rate 16 Blood Pressure 126/71 Pulse Oximetry 94 Oxygen Delivery Intake/Output Intake/Output: Intake & Output 09/10/23 09/11/23 09/12/23 09/13/23 23:59 23:59 23:59 23:59 Intake Total 150 3650 1100 Output Total 400 325 Balance 150 3250 775 Meds/Results Medications: Active Medications Generic Name Dose Route Start Last Admin Trade Name Freq PRN Reason Stop Dose Admin Acetaminophen 650 mg 09/11/23 21:25 09/12/23 16:24 Acetaminophen 325 Mg Tablet PO 650 mg Q4H PRN Administration Mild Pain (1-3) or Fever Amlodipine Besylate 2.5 mg 09/13/23 09:00 Amlodipine Besylate 2.5 Mg Tablet PO DAILY SAMIRA Aspirin 81 mg
[2023-09-13] MEDS: SODIUM CHLORIDE 1 GM TABLET 2 GM PO (09:40)
[2023-09-13] MEDS: FILGRASTIM-SNDZ 480 MCG/0.8 ML SYRINGE SUB-Q (09:46)
[2023-09-13] MEDS: amLODIPine BESYLATE 2.5 MG TABLET PO (09:47)
[2023-09-13] MEDS: PANTOPRAZOLE 40 MG TABLET PO (09:47)
--- NOTE | 2023-09-13 11:24 | PM.CNPUL ---
Assessment and Plan Assessment and plan (1) Multifocal pneumonia: Code(s): J18.9 - Pneumonia, unspecified organism Status: Acute Assessment and Plan: Patient presents with weakness, cough and he denies any shortness of breath to me today. 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 He has been on room air since admission. He is hemodynamically stable. he has COVID, influenza and RSV RT PCR negative. I will treat him for neutropenic pneumonia. Plan: I will order a CT angiogram of the chest to assess for pulmonary embolism and evidence of pneumonia and or cancer. Agree with vancomycin and cefepime at this time, Day 3. I will order urine Legionella, urine pneumococcal, respiratory pathogen panel and serum mycoplasma IgM in the morning. Goal saturation 90-94% and patient is currently on room air. Will follow with you. (2) Leiomyosarcoma: Code(s): C49.9 - Malignant neoplasm of connective and soft tissue, unspecified Status: Acute Assessment and Plan: Patient is followed by Oncology at [facility]. See the note in the chart on 01/[address] Anahi Holguin. 09/13: Oncology has been consulted in the hospital and they have placed him on fill gastrin 480 mg subQ q.day. he received his 1st dose this morning at 9:00 a.m.. History of Present Illness History of Present Illness Consult date: 09/13/23 Chief complaint: Leukopenia/Poss Pneumonia/Hypomagnesemia Narrative: Consult date: 09/13/23 This is a new pulmonary consult for pneumonia. Nawaf Lassiter i an 88-year-old man with sepsis and pneumonia, has a hx of metastatic leiomyosarcoma with lung, liver and renal involvement. Who presented to the emergency department on 09 11 with weakness. He had received his 11th cycle of dexmethasone and docetaxel for metastatioc leiomyosarcoma on 09/04/2023. He was afebrile, lungs were clear room air saturation 96%, wBC 0.4. Na+ 129; K+ 3.7, chloride 102, HCO3 21, BUN 22, creat 0.6. He has had hyponatremia in the past. Chest x-ray compared to 01/02/2023 showed persistent left mid and right lower lung infiltrates with increased infiltrates in the left lower lobe. Patient was started on vancomycin and cefepime. 09/12 He is febrile, 37.8 C, and is on cefepime and vancomycin. White blood cell count was 0.3. 09/13 today the patient states he is feeling the same. His breathing feels normal at rest. He states his cough is worse than when he presented and he produces clear phlegm with no hemoptysis. He is afebrile. He was given a dose of Filgastrin this morning. PMH: asbestosis, CAD, diabetes, hyperlipidemia, hypertension, prior MA, leiomyoma sarcoma and lung CA with mets to liver DATA * 09/11/23 CXR There are calcified pleural plaques bilaterally, which may be seen with asbestosis exposure. There are airspace opacities in right lower lung zone and left mid and lower lung zones. No pleural effusion or pneumothorax. The heart size is normal. There is a right internal jugular port with tip in superior vena cava. There are suture anchors in left humeral head. IMPRESSION: 1. Airspace opacities in right lower lung zone and left mid and lower lung zones with worsening in left lower lung zone, likely a combination of chronic interstitial lung disease, left midlung zone radiation fibrosis, and left basilar atelectasis/scarring versus pneumonia. * 01/02/23 CTA -No pulmonary embolism identified. 2. Left perihilar upper lobe airspace opacity which could reflect infection/inflammation or treated malignancy. 3. Airspace opacities of the lingula and lower lobes, consistent with pneumonia. 4. Left hilar and right paratracheal lymphadenopathy, reactive versus metastatic. 5. Hypoattenuating liver masses, consistent with metastatic disease. 05/29/21: eCHO Summary ? 1. Left ventricular chamber size, wall thickness, systolic are n
[2023-09-13 11:26] LABS: Anion Gap 9 mmol/L (8-16); Blood Urea Nitrogen 16 mg/dL (9-20); Calcium 7.4 mg/dL (8.4-10.2); Carbon Dioxide 19 mmol/L (22-30); Chloride 105 mmol/L (98-107); Estimated CRCL calculation 83 ml/min; Estimated Glomerular Filt Rate > 60; Glucose 150 mg/dL (65-110); Potassium 3.2 mmol/L (3.4-5.0); Sodium 133 mmol/L (137-145)
[2023-09-13 11:57] LABS: Basophils Percent Auto 0.5 % (0.2-1.2); Hematocrit 26.9 % (42.0-52.0); Hemoglobin 8.6 g/dL (14.0-18.0); Immature Granulocyte Absolute 0.03 K/mm3 (0.00-0.031); Immature Granulocyte Percent A 1.5 % (0-0.5); Immature Platelet Fraction Pct 7.2 % (0.9-11.2); Lymphocytes Absolute Auto 0.25 K/mm3 (0.9-3.2); Lymphocytes Percent Auto 12.9 % (18.3-44.2); Mean Corpuscular Hemoglobin 30.3 pg (26-34); Mean Corpuscular Volume 94.7 fl (80-100); Mean Platelet Volume 12.5 fl (7.4-10.4); Monocytes Absolute Auto 0.3 K/mm3 (0.1-0.6); Monocytes Percent Auto 13.9 % (2.6-8.5); Neutrophils Absolute Auto 1.4 K/mm3 (1.3-6.7); Neutrophils Percent Auto 70.2 % (45.5-73.1); Platelet Count Result 33 k/mm3 (150-375); Red Blood Count 2.84 M/mm3 (4.6-6.20); Red Cell Distribution Width 14.3 % (11.5-14.5)
[2023-09-13 12:12] LABS: Vancomycin Trough 7.9 ug/mL (10.0-20.0)
[2023-09-13 12:12] LABS: White Blood Count 1.9 K/mm3 (4.5-10.0)
[2023-09-13 13:12] LABS: Anisocytosis 1+ (NORMAL); Large Platelets Present; Ovalocytes 1+ (NORMAL); Platelet Estimate Decreased (Adequate); Schistocytes Rare (NORMAL)
[2023-09-13] MEDS: ASPIRIN 81 MG CHEWABLE TABLET PO (13:16)
[2023-09-13] MEDS: POTASSIUM CHLORIDE 20 MEQ PACKET (FOR LIQUID) 40 MEQ PO ×2 (16:03→18:19)
[2023-09-14] VITALS (10 sets, daily range): BP systolic 122–124; BP diastolic 66–81; PULSE 99–116; RESP 14–20; TEMP 36.1–37.2; O2SAT 94–96
[2023-09-14] MEDS: CEFEPIME 2 GM/NS 50 ML 2 GM/50 ML BAG IVPB ×3 (06:25→21:28)
[2023-09-14 06:47] LABS: Basophils Percent Auto 0.4 % (0.2-1.2); Eosinophils Absolute Auto 0.1 K/mm3 (0-0.3); Eosinophils Percent Auto 2.1 % (0-4.4); Hematocrit 24.3 % (42.0-52.0); Hemoglobin 7.9 g/dL (14.0-18.0); Immature Granulocyte Absolute 0.34 K/mm3 (0.00-0.031); Lymphocytes Absolute Auto 0.38 K/mm3 (0.9-3.2); Lymphocytes Percent Auto 7.9 % (18.3-44.2); Mean Corpuscular HGB Conc 32.5 g/dl (32-36); Mean Corpuscular Hemoglobin 30.6 pg (26-34); Mean Corpuscular Volume 94.2 fl (80-100); Mean Platelet Volume 12.2 fl (7.4-10.4); Monocytes Absolute Auto 0.5 K/mm3 (0.1-0.6); Monocytes Percent Auto 9.9 % (2.6-8.5); Neutrophils Absolute Auto 3.5 K/mm3 (1.3-6.7); Neutrophils Percent Auto 72.7 % (45.5-73.1); Platelet Count Result 32 k/mm3 (150-375); Red Blood Count 2.58 M/mm3 (4.6-6.20); Red Cell Distribution Width 14.3 % (11.5-14.5); White Blood Count 4.8 K/mm3 (4.5-10.0)
[2023-09-14 06:49] LABS: Estimated CRCL calculation 70 ml/min; Estimated Glomerular Filt Rate > 60
[2023-09-14 06:59] LABS: Anion Gap 5 mmol/L (8-16); Blood Urea Nitrogen 8 mg/dL (9-20); Calcium 6.8 mg/dL (8.4-10.2); Carbon Dioxide 20 mmol/L (22-30); Chloride 102 mmol/L (98-107); Estimated CRCL calculation 83 ml/min; Estimated Glomerular Filt Rate > 60; Glucose 141 mg/dL (65-110); Potassium 3.6 mmol/L (3.4-5.0); Sodium 127 mmol/L (137-145)
--- NOTE | 2023-09-14 08:03 | PM.IMPN ---
Progress Note: A&P Assessment and Plan (1) Encephalopathy: Code(s): G93.40 - Encephalopathy, unspecified Status: Acute (2) Hyponatremia: Code(s): E87.1 - Hypo-osmolality and hyponatremia Status: Acute (3) Pneumonia: Code(s): J18.9 - Pneumonia, unspecified organism Status: Acute (4) Hypomagnesemia: Code(s): E83.42 - Hypomagnesemia Status: Acute (5) Pancytopenia: Code(s): D61.818 - Other pancytopenia Status: Acute (6) Severe sepsis: Code(s): A41.9 - Sepsis, unspecified organism; R65.20 - Severe sepsis without septic shock Status: Acute (7) Multifocal pneumonia: Code(s): J18.9 - Pneumonia, unspecified organism Status: Acute (8) Type 2 diabetes mellitus without complications: Code(s): E11.9 - Type 2 diabetes mellitus without complications Status: Acute (9) Atherosclerotic heart disease of [place] coronary artery without angina pectoris: Code(s): I25.10 - Atherosclerotic heart disease of [place] coronary artery without angina pectoris Status: Acute Plan Multifocal pneumonia Patient has history of lung cancer Came to ED with general weakness Chest x-ray shows multifocal pneumonia Patient's leukopenia 0.3 K Continue vancomycin and cefepime, Consult thermal spray operator and oncologist for evaluation treatment Patient has some cough no obvious shortness breath Severe sepsis Patient has hypotension, tachycardia leukopenia, possible sepsis due to pneumonia Antibiotics see above Start fluid resuscitation Follow-up blood culture, no growth so far Afebrile, blood pressure stable Hypotension, hyponatremia dehydration, hypokalemia Possible due to poor oral intake Start normal saline IV Sodium level improving to 133 , and potassium chloride p.o. Follow-up BMP Pancytopenia Patient has a profound leukopenia and thrombocytopenia Likely resulting from chemotherapy for lung cancer metastatic to liver and kidney last week Consult heme oncologist for evaluation Patient heme oncologist consultation, start him on Neupogen 480 mcg subQ daily until ANC is more than 1000. CAD Patient denies chest pain Stable Continue aspirin 81 mg daily p.o., Lipitor 10 mg daily p.o., Type 2 diabetes Home metformin Start insulin sliding scale a.c. q.h.s. GERD Continue omeprazole 20 mg daily p.o. Hyponatremia hypokalemia Possible due to per orally intake Patient is on normal saline IV, potassium chloride supplement Follow-up BMP Subjective Date/time seen: 09/14/23 08:03 Interval history: Patient feels better today, afebrile, hemodynamically stable over the night patient still has cough, has a scant phlegm. Afebrile overnight, white blood cell increased to 48,000, hemoglobin 7.9, platelets [id number]. No new issue even overnight Exam Narrative: GENERAL:? well-nourished, and in no acute distress. HEAD: Normocephalic, atraumatic. ENT: Nares clear, no rhinorrhea or epistaxis.? Mucous membranes moist. NECK: Supple. CHEST: Clear to auscultation.? No respiratory distress. HEART: Regular rate and rhythm.?grade 2 systolic murmur at the aortic area. ABDOMEN: Soft, nontender, nondistended. EXTREMITIES: Normal range of motion.? SKIN: Warm, dry, no rash, port in place with no surrounding erythema or tenderness NEURO: No focal deficits.? Alert and oriented to self and location but not details of health history or acute events/situation PSYCH: Normal mood and affect. Objective Data Vital Signs Vital Signs: Vital Signs - 24 hr 09/13/23 13:20 09/13/23 14:00 09/13/23 12:00 Temperature 98.3 F Pulse Rate 99 105 H Respiratory Rate 16 Blood Pressure 119/68 Pulse Oximetry 94 Oxygen Delivery Room Air 09/13/23 16:00 09/13/23 20:00 09/13/23 20:30 Temperature 98.2 F Pulse Rate 109 H 106 H 107 H Respiratory Rate 16 Blood Pressure 137/79 Pulse Oximetry 96 Oxygen Delivery 09/14/23 00:00 09/14/23 04:00
--- NOTE | 2023-09-14 08:27 | PM.PNPUL ---
Progress Note: A&P Assessment and Plan (1) Multifocal pneumonia: Code(s): J18.9 - Pneumonia, unspecified organism Status: Acute Assessment and Plan: 09/13 Patient presents with weakness, cough and he denies any shortness of breath to me today. 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 He has been on room air since admission. He is hemodynamically stable. he has COVID, influenza and RSV RT PCR negative. I will treat him for neutropenic pneumonia. Plan: I will order a CT angiogram of the chest to assess for pulmonary embolism and evidence of pneumonia and or cancer. Agree with vancomycin and cefepime at this time, Day 3. I will order urine Legionella, urine pneumococcal, respiratory pathogen panel and serum mycoplasma IgM in the morning. Goal saturation 90-94% and patient is currently on room air. Sputum culture. Respiratory pathogen panel to [facility]. CT angiogram of the chest later in the day showed no pulmonary embolism, left greater than right small pleural effusions. Compared to 01/02/2023 increased ground-glass infiltrate right upper lobe, increased dense consolidation and infiltrate left upper lobe, increased ground-glass infiltrate lingula, increase interstitial infiltrates left lower lobe. 09/14: Overall the patient tells me that he is a little bit better. His cough is about the same and he has a little bit of phlegm that is clear in color and no hemoptysis. Patient remains on room air with saturations 96%. He is afebrile. White blood cell count is pending. Plan: Patient is no longer febrile and feels a little bit better. Patient had a CT angiogram of the chest yesterday and he does have increased ground-glass infiltrates as well as consolidative infiltrates and is difficult to tell if this is progressive cancer and or a pneumonia. I will continue vancomycin and cefepime, day 4. Will follow with you. (2) Leiomyosarcoma: Code(s): C49.9 - Malignant neoplasm of connective and soft tissue, unspecified Status: Acute Assessment and Plan: Patient is followed by Oncology at [facility]. See the note in the chart on 01/[address] Anahi Holguin. 09/13: Oncology has been consulted in the hospital and they have placed him on filgastrin 480 mg subQ q.day. he received his 1st dose this morning at 9:[address] angiogram of the chest later in the day showed no pulmonary embolism, left greater than right small pleural effusions. Compared to 01/02/2023 increased ground-glass infiltrate right upper lobe, increased dense consolidation and infiltrate left upper lobe, increased ground-glass infiltrate lingula, increase interstitial infiltrates left lower lobe. 09/14/2023: Day [address] scan may be progressive cancer verses infection and will continue broad-spectrum antibiotics. Subjective Date/time seen: 09/14/23 08:27 Interval history: 09/13/23 This is a new pulmonary consult for pneumonia. Nawaf Lassiter i an 88-year-old man with sepsis and pneumonia, has a hx of metastatic leiomyosarcoma with lung, liver and renal involvement.? Who presented to the emergency department on 09 11 with weakness.? He had received his 11th cycle of dexmethasone and docetaxel for metastatioc leiomyosarcoma on 09/04/2023.? He was afebrile, lungs were clear room air saturation 96%,? wBC 0.4. Na+ 129; K+ 3.7, chloride 102, HCO3 21, BUN 22, creat 0.6. He has had hyponatremia in the past.? Chest x-ray compared to 01/02/2023 showed persistent left mid and right lower lung infiltrates with increased infiltrates in the left lower lobe.? Patient was started on vancomycin and cefepime. 09/12 He is febrile, 37.8 C, and is on cefepime and vancomycin.? White blood cell count was 0.3. 09/13 today the patient states he is feeling the same.? His breathing feels normal at rest.? He states his cough is worse than when he presented and he produces clear phlegm with
[2023-09-14 08:29] LABS: Platelet Estimate Decreased (Adequate)
[2023-09-14 08:30] LABS: Burr Cells 2+ (NORMAL); Dohle Bodies Present (NORMAL); Schistocytes Rare (NORMAL); Toxic Granulation Present (NORMAL)
[2023-09-14] MEDS: POTASSIUM CHLORIDE 20 MEQ PACKET (FOR LIQUID) 40 MEQ PO ×2 (08:58→16:31)
[2023-09-14] MEDS: FILGRASTIM-SNDZ 480 MCG/0.8 ML SYRINGE SUB-Q (08:59)
[2023-09-14] MEDS: PANTOPRAZOLE 40 MG TABLET PO (08:59)
[2023-09-14] MEDS: SODIUM CHLORIDE 1 GM TABLET PO ×3 (08:59→16:29)
--- NOTE | 2023-09-14 09:50 | PC.NURSE ---
Multiple attempts to restart IV access without success.
[2023-09-14] MEDS: ASPIRIN 81 MG CHEWABLE TABLET PO (12:18)
[2023-09-14] MEDS: SODIUM CHLORIDE 0.9% IV 1,000 ML 125 ML IV CONT (12:23)
[2023-09-14] MEDS: CENTRAL LINE FLUSH 10 ML IV PUSH ×2 (14:49→21:32)
[2023-09-14] MEDS: ONDANSETRON INJ 4 MG/2 ML VIAL (17:58)
[2023-09-15] VITALS (12 sets, daily range): BP systolic 130–142; BP diastolic 74–93; PULSE 94–116; RESP 18–26; TEMP 35.8–36.7; O2SAT 85–99
[2023-09-15 02:48] LABS: Vancomycin Trough 14.1 ug/mL (10.0-20.0)
[2023-09-15] MEDS: CENTRAL LINE FLUSH 10 ML IV PUSH ×3 (06:13→20:40)
[2023-09-15] MEDS: CEFEPIME 2 GM/NS 50 ML 2 GM/50 ML BAG IVPB ×3 (06:13→20:38)
[2023-09-15] MEDS: SODIUM CHLORIDE 0.9% IV 1,000 ML 100 ML IV CONT (06:14)
[2023-09-15 06:29] LABS: Hematocrit 24.4 % (42.0-52.0); Hemoglobin 8.1 g/dL (14.0-18.0); Immature Platelet Fraction Pct 9.9 % (0.9-11.2); Mean Corpuscular HGB Conc 33.2 g/dl (32-36); Mean Corpuscular Hemoglobin 30.8 pg (26-34); Mean Corpuscular Volume 92.8 fl (80-100); Mean Platelet Volume 13.1 fl (7.4-10.4); Platelet Count Result 40 k/mm3 (150-375); Red Blood Count 2.63 M/mm3 (4.6-6.20); Red Cell Distribution Width 14.5 % (11.5-14.5); White Blood Count 13.9 K/mm3 (4.5-10.0)
[2023-09-15 06:42] LABS: Anion Gap 7 mmol/L (8-16); Blood Urea Nitrogen 3 mg/dL (9-20); Carbon Dioxide 18 mmol/L (22-30); Chloride 99 mmol/L (98-107); Estimated CRCL calculation 83 ml/min; Estimated Glomerular Filt Rate > 60; Glucose 191 mg/dL (65-110); Potassium 3.9 mmol/L (3.4-5.0); Sodium 124 mmol/L (137-145)
--- NOTE | 2023-09-15 07:18 | PM.IMPN ---
Progress Note: A&P Assessment and Plan (1) Encephalopathy: Code(s): G93.40 - Encephalopathy, unspecified Status: Acute (2) Hyponatremia: Code(s): E87.1 - Hypo-osmolality and hyponatremia Status: Acute (3) Pneumonia: Code(s): J18.9 - Pneumonia, unspecified organism Status: Acute (4) Hypomagnesemia: Code(s): E83.42 - Hypomagnesemia Status: Acute (5) Pancytopenia: Code(s): D61.818 - Other pancytopenia Status: Acute (6) Severe sepsis: Code(s): A41.9 - Sepsis, unspecified organism; R65.20 - Severe sepsis without septic shock Status: Acute (7) Multifocal pneumonia: Code(s): J18.9 - Pneumonia, unspecified organism Status: Acute (8) Type 2 diabetes mellitus without complications: Code(s): E11.9 - Type 2 diabetes mellitus without complications Status: Acute (9) Atherosclerotic heart disease of [place] coronary artery without angina pectoris: Code(s): I25.10 - Atherosclerotic heart disease of [place] coronary artery without angina pectoris Status: Acute Plan Multifocal pneumonia Patient has history of lung cancer Came to ED with general weakness Chest x-ray shows multifocal pneumonia Patient's leukopenia 0.3 K Received vancomycin and cefepime, Consult french polisher and oncologist for evaluation treatment Patient has some cough no obvious shortness breath, but has dyspnea with exertion Discontinue vancomycin IV, continue cefepime IV Severe sepsis Patient has hypotension, tachycardia leukopenia, possible sepsis due to pneumonia Antibiotics see above Start fluid resuscitation Follow-up blood culture, no growth so far Afebrile, blood pressure stable Resolves Hypotension, hyponatremia dehydration, hypokalemia Possible due to poor oral intake Start normal saline IV Sodium level improving to 133 / , and potassium chloride p.o. Follow-up BMP Pancytopenia Patient has a profound leukopenia and thrombocytopenia Likely resulting from chemotherapy for lung cancer metastatic to liver and kidney last week Consult heme oncologist for evaluation Patient heme oncologist consultation, started Neupogen 480 mcg subQ daily Now white blood cell 03953, hold Neupogen. Hemoglobin and platelets a improving CAD Patient denies chest pain Stable Continue aspirin 81 mg daily p.o., Lipitor 10 mg daily p.o., Type 2 diabetes Home metformin Start insulin sliding scale a.c. q.h.s. GERD Continue omeprazole 20 mg daily p.o. Hyponatremia hypokalemia Possible due to per orally intake Patient is on normal saline IV, potassium chloride supplement Follow-up BMP Subjective Date/time seen: 09/15/23 07:18 Interval history: Patient feels better today, afebrile, hemodynamically stable over the night patient patient has a cough, exertional dyspnea. Patient walks with assistance of PT, O2 desaturation dropped sharply with ambulation. The patient denies chest pain, shortness of breath at rest. Leukocytosis 13,900, hemoglobin and platelets trending up. Exam Narrative: GENERAL:? well-nourished, and in no acute distress. HEAD: Normocephalic, atraumatic. ENT: Nares clear, no rhinorrhea or epistaxis.? Mucous membranes moist. NECK: Supple. CHEST: Clear to auscultation.? No respiratory distress. HEART: Regular rate and rhythm.?grade 2 systolic murmur at the aortic area. ABDOMEN: Soft, nontender, nondistended. EXTREMITIES: Normal range of motion.? SKIN: Warm, dry, no rash, port in place with no surrounding erythema or tenderness NEURO: No focal deficits.? Alert and oriented to self and location but not details of health history or acute events/situation PSYCH: Normal mood and affect. Objective Data Vital Signs Vital Signs: Vital Signs - 24 hr 09/14/23 09:10 09/14/23 08:00 09/14/23 08:00 Temperature Pulse Rate 115 H Respiratory Rate Blood Pressure Pulse Oximetry 94 Oxygen Delivery Room Air Room Air
[2023-09-15 08:03] LABS: Band Neutrophils Percent 21 % (0-6); Lymphocytes Absolute Manual 0.13 K/mm3 (1.1-4.5); Monocytes Absolute Manual 1.52 K/mm3 (0.1-0.90); Monocytes Percent Manual 11 % (3-9); Neutrophils Absolute Manual 12.23 K/mm3 (1.3-6.7); Neutrophils Percent Manual 67 % (46-73); Platelet Estimate Decreased (Adequate); Schistocytes None Seen (NORMAL); Total Cells Counted 100
[2023-09-15 08:04] LABS: Burr Cells 2+ (NORMAL); Toxic Granulation Present (NORMAL)
[2023-09-15 08:05] LABS: Poikilocytosis 1+ (NORMAL)
[2023-09-15] MEDS: POTASSIUM CHLORIDE 20 MEQ PACKET (FOR LIQUID) 40 MEQ PO (08:45)
[2023-09-15] MEDS: SODIUM CHLORIDE 1 GM TABLET PO ×2 (08:46→12:25)
[2023-09-15] MEDS: PANTOPRAZOLE 40 MG TABLET PO (08:46)
--- NOTE | 2023-09-15 09:02 | PM.PNPUL ---
Progress Note: A&P Assessment and Plan (1) Multifocal pneumonia: Code(s): J18.9 - Pneumonia, unspecified organism Status: Acute Assessment and Plan: 09/13 Patient presents with weakness, cough and he denies any shortness of breath to me today. 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 He has been on room air since admission. He is hemodynamically stable. he has COVID, influenza and RSV RT PCR negative. I will treat him for neutropenic pneumonia. Plan: I will order a CT angiogram of the chest to assess for pulmonary embolism and evidence of pneumonia and or cancer. Agree with vancomycin and cefepime at this time, Day 3. I will order urine Legionella, urine pneumococcal, respiratory pathogen panel and serum mycoplasma IgM in the morning. Goal saturation 90-94% and patient is currently on room air. Sputum culture. Respiratory pathogen panel to [facility]. CT angiogram of the chest later in the day showed no pulmonary embolism, left greater than right small pleural effusions. Compared to 01/02/2023 increased ground-glass infiltrate right upper lobe, increased dense consolidation and infiltrate left upper lobe, increased ground-glass infiltrate lingula, increase interstitial infiltrates left lower lobe. 09/14: Overall the patient tells me that he is a little bit better. His cough is about the same and he has a little bit of phlegm that is clear in color and no hemoptysis. Patient remains on room air with saturations 96%. He is afebrile. White blood cell count is pending. Plan: Patient is no longer febrile and feels a little bit better. Patient had a CT angiogram of the chest yesterday and he does have increased ground-glass infiltrates as well as consolidative infiltrates and is difficult to tell if this is progressive cancer and or a pneumonia. I will continue vancomycin and cefepime, day 4. 09/15: Patient's reporting of his symptoms are inconsistent. Initially he told me he was breathing better, he was breathing normal at rest, stated his cough was better and stated his phlegm was clear and better. 3 minutes later the patient told me he was breathing worsened still had worsening dyspnea on exertion. The patient was placed on oxygen last night and he was on 2 L with saturations 100%. I decreased him to room air and after 6 minutes his saturations were 96%. I left him on room air. His white blood cell count is 13.9, he is afebrile. His weight is decreased from 70 kg on admission to 67.3 today Plan: Blood cultures 09/11 x 2 and 09/12 x 2 are no growth today. Respiratory pathogen panel pending and this will take approximately 7-10 days to return. Sputum culture is on collected. I will continue vancomycin and cefepime, day 5. Will follow with you. (2) Leiomyosarcoma: Code(s): C49.9 - Malignant neoplasm of connective and soft tissue, unspecified Status: Acute Assessment and Plan: Patient is followed by Oncology at [facility]. See the note in the chart on 01/[address] Anahi Holguin. 09/13: Oncology has been consulted in the hospital and they have placed him on filgastrin 480 mg subQ q.day. he received his 1st dose this morning at 9:[address] angiogram of the chest later in the day showed no pulmonary embolism, left greater than right small pleural effusions. Compared to 01/02/2023 increased ground-glass infiltrate right upper lobe, increased dense consolidation and infiltrate left upper lobe, increased ground-glass infiltrate lingula, increase interstitial infiltrates left lower lobe. 09/14/2023: Day [address] scan may be progressive cancer verses infection and will continue broad-spectrum antibiotics. Later in the day the white blood cell count returned at 4.8. 09/15: His white blood cell count is 13.9, I have placed the filgastrin on hold until he can be evaluated by Oncology. Subjective Date/time seen: 09/15
[2023-09-15] MEDS: HYDROcodone/acetaminophen (*CRX) 10-325 MG TABLET 1 TAB PO ×2 (11:02→18:15)
[2023-09-15] MEDS: ASPIRIN 81 MG CHEWABLE TABLET PO (12:25)
[2023-09-15] MEDS: ALTEPLASE 2 MG VIAL (CATHFLO) IV PUSH (15:23)
[2023-09-15] MEDS: SODIUM CHLORIDE 1 GM TABLET 2 GM PO (18:15)
--- NOTE | 2023-09-15 19:24 | PC.NURSE ---
This nurse came onto shift and patient's port-a-cath was unable to give blood return. Patient's port-a-cath is located on right chest and patient currently has dependent edema to the right extremity and fingers are cold to the touch. Pulses intact but weaker on the right side. Dr. Nguyen was contacted at this time with request for a chest x-ray to ensure port was still in correct place. Chest x-ray read as Mediport in correct place. Orders for an ultrasound of right upper extremity obtained and Cathflo for the occluded port. Cathflo x1 was attempted with no success, and this nurse was unable to pull the Cathflo back out of the chest port. At this point, the chest port was de-accessed and re-accessed with a new needle. 10mL of blood was able to be aspirated with the new needle change. A sterile dressing was applied and dated and initialed at this time.
--- NOTE | 2023-09-15 22:56 | P.PNCROSS_ITS ---
Event Note Event Note Event Note: [place] [address] was having right upp er extremity edema. Daytime hospitalist ordered venous Doppler study which came back positive with occlusive appearing DVT to the mid and distal right cephalic vein. Given that the patient has significant thrombocytopenia I do not feel safe giving the patient anticoagulation with heparin or Lovenox. Subsequently have had nursing staff place a limb alert on the patient's right upper extremity and have instructed the staff not to place IVs or blood pressure cuffs on this arm. Further management will need to be discussed with Oncology tomorrow.
[2023-09-16] VITALS (16 sets, daily range): BP systolic 124–145; BP diastolic 75–84; PULSE 95–125; RESP 18–24; TEMP 35.9–36.9; O2SAT 77–96
[2023-09-16 03:15] LABS: Legionella pneumophila Ag Ur Not Detected (Not Detected)
[2023-09-16] MEDS: CENTRAL LINE FLUSH 10 ML IV PUSH ×3 (05:32→20:44)
[2023-09-16] MEDS: CEFEPIME 2 GM/NS 50 ML 2 GM/50 ML BAG IVPB ×3 (05:32→20:42)
[2023-09-16] MEDS: SODIUM CHLORIDE 0.9% IV 1,000 ML 100 ML IV CONT ×2 (05:32→16:41)
[2023-09-16 07:58] LABS: Hemoglobin 9.6 g/dL (14.0-18.0); Immature Platelet Fraction Pct 8.8 % (0.9-11.2); Mean Corpuscular Hemoglobin 30.5 pg (26-34); Mean Corpuscular Volume 98.4 fl (80-100); Mean Platelet Volume 13.1 fl (7.4-10.4); Platelet Count Result 54 k/mm3 (150-375); Red Blood Count 3.15 M/mm3 (4.6-6.20); Red Cell Distribution Width 14.7 % (11.5-14.5); White Blood Count 17.8 K/mm3 (4.5-10.0)
[2023-09-16 08:11] LABS: Anion Gap 10 mmol/L (8-16); Blood Urea Nitrogen 4 mg/dL (9-20); Calcium 7.4 mg/dL (8.4-10.2); Carbon Dioxide 16 mmol/L (22-30); Chloride 101 mmol/L (98-107); Estimated CRCL calculation 101 ml/min; Estimated Glomerular Filt Rate > 60; Glucose 158 mg/dL (65-110); Potassium 4.1 mmol/L (3.4-5.0); Sodium 127 mmol/L (137-145)
[2023-09-16] MEDS: POTASSIUM CHLORIDE 20 MEQ PACKET (FOR LIQUID) 40 MEQ PO (08:52)
[2023-09-16] MEDS: SODIUM CHLORIDE 1 GM TABLET 2 GM PO ×2 (08:52→17:14)
[2023-09-16] MEDS: PANTOPRAZOLE 40 MG TABLET PO (08:52)
[2023-09-16] MEDS: HYDROcodone/acetaminophen (*CRX) 10-325 MG TABLET 1 TAB PO (09:07)
[2023-09-16 09:09] LABS: Band Neutrophils Percent 27 % (0-6); Eosinophils Absolute Manual 0.53 K/mm3 (0.02-0.5); Eosinophils Percent Manual 3 % (0-4); Lymphocytes Absolute Manual 0.71 K/mm3 (1.1-4.5); Metamyelocytes Percent 1 %; Monocytes Absolute Manual 0.89 K/mm3 (0.1-0.90); Monocytes Percent Manual 5 % (3-9); Neutrophils Absolute Manual 15.48 K/mm3 (1.3-6.7); Neutrophils Percent Manual 60 % (46-73); Total Cells Counted 100
[2023-09-16 09:10] LABS: Hypochromasia 1+ (NORMAL); Ovalocytes 1+ (NORMAL); Platelet Estimate Decreased (Adequate); Schistocytes None Seen (NORMAL)
[2023-09-16] MEDS: ONDANSETRON INJ 4 MG/2 ML VIAL IV PUSH ×2 (09:35→17:16)
--- NOTE | 2023-09-16 10:17 | PM.PNPUL ---
Progress Note: A&P Assessment and Plan (1) Multifocal pneumonia: Code(s): J18.9 - Pneumonia, unspecified organism Status: Acute Assessment and Plan: 09/13 Patient presents with weakness, cough and he denies any shortness of breath to me today. 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 He has been on room air since admission. He is hemodynamically stable. he has COVID, influenza and RSV RT PCR negative. I will treat him for neutropenic pneumonia. Plan: I will order a CT angiogram of the chest to assess for pulmonary embolism and evidence of pneumonia and or cancer. Agree with vancomycin and cefepime at this time, Day 3. I will order urine Legionella, urine pneumococcal, respiratory pathogen panel and serum mycoplasma IgM in the morning. Goal saturation 90-94% and patient is currently on room air. Sputum culture. Respiratory pathogen panel to [facility]. CT angiogram of the chest later in the day showed no pulmonary embolism, left greater than right small pleural effusions. Compared to 01/02/2023 increased ground-glass infiltrate right upper lobe, increased dense consolidation and infiltrate left upper lobe, increased ground-glass infiltrate lingula, increase interstitial infiltrates left lower lobe. 09/14: Overall the patient tells me that he is a little bit better. His cough is about the same and he has a little bit of phlegm that is clear in color and no hemoptysis. Patient remains on room air with saturations 96%. He is afebrile. White blood cell count is pending. Plan: Patient is no longer febrile and feels a little bit better. Patient had a CT angiogram of the chest yesterday and he does have increased ground-glass infiltrates as well as consolidative infiltrates and is difficult to tell if this is progressive cancer and or a pneumonia. I will continue vancomycin and cefepime, day 4. 09/15: Patient's reporting of his symptoms are inconsistent. Initially he told me he was breathing better, he was breathing normal at rest, stated his cough was better and stated his phlegm was clear and better. 3 minutes later the patient told me he was breathing worsened still had worsening dyspnea on exertion. The patient was placed on oxygen last night and he was on 2 L with saturations 100%. I decreased him to room air and after 6 minutes his saturations were 96%. I left him on room air. His white blood cell count is 13.9, he is afebrile. His weight is decreased from 70 kg on admission to 67.3 today Plan: Blood cultures 09/11 x 2 and 09/12 x 2 are no growth today. Respiratory pathogen panel pending and this will take approximately 7-10 days to return. Sputum culture is uncollected. I will continue vancomycin and cefepime, day 5. 09/16/2023. The patient states that he is the same to slightly worse. He continues with shortness of breath and a cough. He is on 2 L nasal cannula with saturations 96%. He is afebrile. White blood cell count 17.8. He is very weak and has a very poor cough. Plan: Patient with worsening oxygenation and a chest x-ray that demonstrates more consolidation in the left upper lobe. I suspect that this is worsening mucus plugging. Will continue cefepime, day 6. To 8 in sputum expectoration I will start bronchodilators albuterol and ipratropium nebulizers Q 6 hours, joint dornase 2.5 mg b.i.d., guaifenesin 1200 mg p.o. b.i.d. and a Cornet flutter valve. Will follow with you. (2) Leiomyosarcoma: Code(s): C49.9 - Malignant neoplasm of connective and soft tissue, unspecified Status: Acute Assessment and Plan: Patient is followed by Oncology at [facility]. See the note in the chart on 01/[address] Anahi Holguin. 09/13: Oncology has been consulted in the hospital and they have placed him on filgastrin 480 mg subQ q.day. he received his 1st dose this morning at 9:[address] angiogram of the chest later in the d
[2023-09-16] MEDS: DORNASE ALFA INH SOLN 1 MG/ML 2.5 ML AMP 2.5 MG INHALATION ×2 (10:30→19:47)
[2023-09-16 11:05] LABS: Pneumococcal Antigen Urine Not Detected (Not Detected)
[2023-09-16] MEDS: guaiFENesin 12 HR 600 MG TABCR 1200 MG PO ×2 (11:16→20:42)
[2023-09-16] MEDS: ASPIRIN 81 MG CHEWABLE TABLET PO (12:01)
[2023-09-16] MEDS: ALBUTEROL SULFATE NEB 2.5 MG/3 ML INH INHALATION ×2 (13:09→19:47)
[2023-09-16] MEDS: IPRATROPIUM BR 0.02% INH SOLN 0.5 MG/2.5 ML VIAL INHALATION ×2 (13:09→19:47)
--- NOTE | 2023-09-16 13:31 | PM.IMPN ---
Progress Note: A&P Assessment and Plan (1) Encephalopathy: Code(s): G93.40 - Encephalopathy, unspecified Status: Acute (2) Hyponatremia: Code(s): E87.1 - Hypo-osmolality and hyponatremia Status: Acute (3) Pneumonia: Code(s): J18.9 - Pneumonia, unspecified organism Status: Acute (4) Hypomagnesemia: Code(s): E83.42 - Hypomagnesemia Status: Acute (5) Pancytopenia: Code(s): D61.818 - Other pancytopenia Status: Acute (6) Severe sepsis: Code(s): A41.9 - Sepsis, unspecified organism; R65.20 - Severe sepsis without septic shock Status: Acute (7) Multifocal pneumonia: Code(s): J18.9 - Pneumonia, unspecified organism Status: Acute (8) Type 2 diabetes mellitus without complications: Code(s): E11.9 - Type 2 diabetes mellitus without complications Status: Acute (9) 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: Code(s): I25.10 - 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 Status: Acute Plan Multifocal pneumonia Patient has history of lung cancer Came to ED with general weakness Chest x-ray shows multifocal pneumonia Patient's leukopenia 0.3 K Received vancomycin and cefepime, Consult meteorology teacher and oncologist for evaluation treatment Patient has some cough no obvious shortness breath, but has dyspnea with exertion Discontinue vancomycin IV, continue cefepime IV Severe sepsis Patient has hypotension, tachycardia leukopenia, possible sepsis due to pneumonia Antibiotics see above Start fluid resuscitation Follow-up blood culture, no growth so far Afebrile, blood pressure stable Resolves Hypotension, hyponatremia dehydration, hypokalemia Possible due to poor oral intake Start normal saline IV Sodium level improving to 133 / , and potassium chloride p.o. 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 Hemoglobin and platelets a improving CAD Patient denies chest pain Stable Continue aspirin 81 mg daily p.o., Lipitor 10 mg daily p.o., Type 2 diabetes Home metformin Start insulin sliding scale a.c. q.h.s. GERD Continue omeprazole 20 mg daily p.o. Hyponatremia hypokalemia Possible due to per orally intake Patient is on normal saline IV, potassium chloride supplement Follow-up BMP Plan - Pulmonology rounding if pt does not improve will need tranfuse to [place], oncology services. If pt improves will need to go to Rehab. Long discussion with son and daughter about pts nutritional intake which is low will consult integration project manager and order supplements for pt, continue to follow clinical picture and daily labs for improvement Subjective Date/time seen: 09/16/23 13:31 Interval history: 88-year-old male with past medical history of lung and liver cancer and asbestosis who presents to the emergency department with complaint of feeling weak.? Patient last underwent chemotherapy a week ago on .? At baseline he is fairly active.? His last known well is Friday when his son spoke with him and states he was sharp then.? Patient states he did go to the [facility] to work out on Friday but he did leave early because he was not feeling well. Pt admitted with encephalopathy, pneumonia and sepsis. Unfortunately pt is needing oxygen while resting and more liters on ambulation cxr shows not much better, despite iv abx, pt had lung, liver and kidney cancer currently on chemotherapy on every 3 weeks basis at [facility]. Pulmonology rounding if pt does not improve will need tranfuse to [place], oncology services. If pt improves will need t
[2023-09-16] MEDS: MIRTAZAPINE 15 MG TABLET PO (20:42)
--- NOTE | 2023-09-16 23:05 | ECG_ITS ---
Measurements Intervals [place] Rate: 119 P: -5 NE: 152 QRS: 60 QRSD: 90 T: -9 QT: 357 QTc: 503 Interpretive Statements ATRIAL FIBRILLATION WITH RAPID VENTRICULAR RESPONSE LOW QRS VOLTAGE IN LIMB LEADS BORDERLINE T WAVE ABNORMALITY- ANTEROLAT/INF LEADS BASELINE WANDER- V1-V4 ABNORMAL ECG COMPARED TO ECG 09/11/2023 18:21:28 SINUS TACHYCARDIA NOW PRESENT Electronically Signed On 09-17-2023 6:13:45 HAND CLOTH FOLDER by Hayden Starks D.O.
[2023-09-16] MEDS: WATER FOR IRRIGATION, STERILE 1,000 ML BOTTLE 1000 ML (23:22)
[2023-09-16] MEDS: METOPROLOL TARTRATE INJ 5 MG/5 ML VIAL IV PUSH (23:23)
[2023-09-17] VITALS (35 sets, daily range): BP systolic 69–130; BP diastolic 59–90; PULSE 101–146; RESP 20–30; TEMP 36.1–36.6; O2SAT 86–100
--- NOTE | 2023-09-17 | ECHO_ITS ---
Patient Info Name: Nawaf Lassiter Age: 88 years : 1935 Gender: Male Ht: 65 in Wt: 135 lbs BSA: 1.68 m2 HR: 102 bpm BP: 99 / 76 mmHg Heart Rhythm: Indeterminant Technical Quality: Good Exam Date: 09/17/2023 1:05 PM Exam Location: Echo Lab Patient Status: Inpatient Admit Date: 09/11/2023 Staff Ordering Physician: Joyce Bishop MD Animal Geneticist: Betzy Doran RDCS Attending Provider: Vero Mann MD Referring Physician: Edna REYNOLDS; Exam Type: CA echo doppler color flow Study Info Indications - CHF, NEW A FIB Complete two-dimensional, color flow and Doppler transthoracic echocardiogram is performed. Summary 1. Complete two-dimensional, color flow and Doppler transthoracic echocardiogram is performed. 2. Borderline dilatation of the left ventricle with normal wall thickness. Moderate global hypokinesis with akinesis of the mid and distal septum and inferoseptal segments as well as apex, with severe hypokinesis of the distal anterior wall and distal lateral wall. Grade 2 diastolic dysfunction is present. Ejection fraction 30-35%. 3. There is mild tricuspid valve regurgitation. 4. Moderate pulmonary hypertension, estimated pulmonary arterial systolic pressure is 52 mmHg. 5. Left atrial chamber dimension is moderately enlarged. 6. Dilated inferior vena cava with <50% collapse upon inspiration consistent with significantly elevated right atrial pressure, 20 mmHg. 7. The aortic root size at the sinus of Valsalva is borderline dilated, 3.8 cm. 8. Underlying rhythm is probably sinus tachycardia. Left Ventricle Left ventricular chamber dimension is normal. Left ventricular systolic function is normal, estimated at 30-35%. There is no increased left ventricular wall thickness. Left ventricular septal wall motion is normal. The left ventricular diastolic function is grade II diastolic dysfunction. Right Ventricle Right ventricular chamber dimension is normal. Right ventricular systolic function is normal. Left Atria Left atrial chamber dimension is moderately enlarged. Right Atria Right atrial chamber dimension is normal. Aortic Valve The aortic valve is trileaflet. There is mild aortic valve sclerosis. There is no aortic valve stenosis. There is trace aortic valve regurgitation. Pulmonic Valve The pulmonic valve is normal. There is no pulmonic valve stenosis. There is trace pulmonic regurgitation. Mitral Valve The mitral valve has thickened leaflets. There is no mitral valve stenosis. There is trace mitral valve regurgitation. Tricuspid Valve The tricuspid valve leaflets are normal. There is no significant tricuspid valve stenosis. There is mild tricuspid valve regurgitation. Moderate pulmonary hypertension, estimated pulmonary arterial systolic pressure is 52 mmHg. Pericardium/Pleural The pericardium appears normal. There is no pericardial effusion. Inferior Vena Cava Dilated inferior vena cava with <50% collapse upon inspiration consistent with significantly elevated right atrial pressure, 20 mmHg. Aorta The aortic root size at the sinus of Valsalva is borderline dilated, 3.8 cm. The prox ascending aorta size is normal. Calcified aortic root. Left Ventricular Outflow Tract Name Value Normal LVOT 2D LVOT Diameter 2.3 cm
[2023-09-17] MEDS: HYDROcodone/acetaminophen (*CRX) 10-325 MG TABLET 1 TAB PO (01:45)
[2023-09-17] MEDS: IPRATROPIUM BR 0.02% INH SOLN 0.5 MG/2.5 ML VIAL INHALATION ×4 (02:11→20:01)
[2023-09-17] MEDS: LEVALBUTEROL NEB 1.25 MG/3 ML INHALATION ×2 (02:12→08:12)
[2023-09-17] MEDS: FUROSEMIDE INJ 40 MG/4 ML VIAL IV PUSH (02:45)
[2023-09-17 03:13] LABS: Glucose Point of Care 274 mg/dl (65-105)
--- NOTE | 2023-09-17 03:22 | PC.NURSE ---
Pt transferred to ICU, report given to RN. Pt belongings were brought with Pt. Family notified of situation.
--- NOTE | 2023-09-17 03:25 | PC.NURSE ---
This patient, Nawaf Lassiter, was received from [facility] on 09/17/23 at 0250. Patient/family oriented to unit policies and routines. Report received from ASHLIE Chirinos.
[2023-09-17 03:45] LABS: Hematocrit 31.1 % (42.0-52.0); Hemoglobin 9.8 g/dL (14.0-18.0); Immature Platelet Fraction Pct 11.5 % (0.9-11.2); Mean Corpuscular HGB Conc 31.5 g/dl (32-36); Mean Corpuscular Hemoglobin 30.4 pg (26-34); Mean Corpuscular Volume 96.6 fl (80-100); Mean Platelet Volume 12.3 fl (7.4-10.4); Platelet Count Result 77 k/mm3 (150-375); Red Blood Count 3.22 M/mm3 (4.6-6.20); Red Cell Distribution Width 15.1 % (11.5-14.5); White Blood Count 26.5 K/mm3 (4.5-10.0)
[2023-09-17 03:53] LABS: Alanine Aminotransferase 26 U/L (6-50); Albumin Level 2.8 g/dL (3.5-5.1); Alkaline Phosphatase 176 U/L (38-126); Anion Gap 12 mmol/L (8-16); Aspartate Amino Transferase 25 U/L (17-59); Bilirubin,Total 0.7 mg/dL (0.2-1.3); Blood Urea Nitrogen 5 mg/dL (9-20); Calcium 7.3 mg/dL (8.4-10.2); Carbon Dioxide 14 mmol/L (22-30); Chloride 99 mmol/L (98-107); Estimated CRCL calculation 83 ml/min; Estimated Glomerular Filt Rate > 60; Glucose 256 mg/dL (65-110); Sodium 125 mmol/L (137-145)
[2023-09-17 04:00] LABS: Lactic Acid Reflex 4.4 mmol/L (0.7-2.0)
[2023-09-17 04:10] LABS: NT Pro B Type Natriuretic Pept 7080 pg/mL (19.9-100); Troponin I 0.357 ng/mL (0.000-0.034)
[2023-09-17 04:18] LABS: Band Neutrophils Percent 12 % (0-6); Giant Platelets Present; Lymphocytes Absolute Manual 0.26 K/mm3 (1.1-4.5); Metamyelocytes Percent 1 %; Monocytes Absolute Manual 0.53 K/mm3 (0.1-0.90); Monocytes Percent Manual 2 % (3-9); Myelocytes Percent 3 %; Neutrophils Absolute Manual 24.64 K/mm3 (1.3-6.7); Neutrophils Percent Manual 81 % (46-73); Platelet Estimate Decreased (Adequate); Schistocytes None Seen (NORMAL); Total Cells Counted 100; Toxic Granulation Present (NORMAL)
[2023-09-17 04:19] LABS: Acanthocytes 1+ (NORMAL); Burr Cells 2+ (NORMAL); Poikilocytosis 1+ (NORMAL)
[2023-09-17] MEDS: CENTRAL LINE FLUSH 10 ML IV PUSH ×3 (04:42→19:53)
--- NOTE | 2023-09-17 04:42 | P.RRN_ITS ---
Critical Care Event Note Summary Code activated: No Narrative: 09/17/2023 approximately 02:40 Rapid response was called as patient had tachycardia and rapidly increasing oxygen requirement. The patient had previously been on 7 L high-flow oxygen and had rapid increase in oxygen requirement needing 15 L high-flow. The patient was only satting 88% on the 15 L high-flow. Respiratory rate climbed into the 30s. Patient was having labored respirations. He reported feeling generally il l. He denies having any chest pain. Patient was noted to have 1+ pitting edema of his extremities. On exam patient had coarse crackles throughout in sounded as if he was fluid overloaded. The patient had marked JVD on exam. A Sam catheter was placed during resuscitation efforts. The patient had immediate return of 1 L of urine output when 40 mg of IV Lasix was administered. Stat chest x-ray was performed and demonstrated worsening pulmonary edema on top of already chronic diffuse hazy lung disease. Suspected layering pleural effusion on the left which appeared stable compared to prior. Patient's MediPort is in the same place. Chronic calcified pleural plaques noted. Radiologic interpretation pending. EKG was performed prior to rapid response demonstrates sinus tachycardia according to the EKG machine. The patient has such a low- voltage QRS that it is difficult to discern if there truly P waves. Rhythm does seem a little bit irregular. The patient was transferred to the ICU is IMU overflow. Patient was placed on BiPAP. Patient BiPAP was titrated to 16/6 and a rate of 14. With these changes patient was pulling appropriate tidal volumes. The patient looked much more comfortable on exam after BiPAP. Overall the patient's condition has improved and stabilized. Repeat CBC was performed which demonstrated increasing white count but the patient recently received Neupogen. He is still on cefepime for suspected pneumonia. Recently his vancomycin was discontinued. His bandemia is improving. His hemoglobin is stable and his platelet count is improving. The patient's sodium is decreased to 125 and serum bicarb has dropped to 14. His BUN it and creatinine are stable and low. Glucoses are 247. Lactic acid was high at 4.4. Troponin was also elevated to 0.357 in had been normal at the beginning of the patient's hospitalization. BNP was also elevated to 7080 but no prior values available for comparison. Patient was not having chest pain during the rapid response. Patient had acutely worsening on hypoxic respiratory failure. Likely multifactorial. Given the amount of JVD on exam and x-ray findings patient was given IV Lasix and placed on BiPAP. The patient's respiratory status has improved. The patient's troponin is elevated but likely due to demand ischemia. Will trend troponins. The patient is not a candidate for anticoagulation due t o his thrombocytopenia. Patient does have a known right upper extremity DVT. It is possible the patient may have thrown a pulmonary embolism. I will defer whether not to repeat the CTA of the chest to the daytime service. This case had a high probability of a clinically significant, sudden, or life threatening deterioration of this patient's condition which required my full and direct attention, intervention and personal management. 60 minutes spent in critical care activities. Critical care time: 30 - 74 mins
[2023-09-17 05:08] LABS: Base Excess ABG -3.5 mEq/l (+/-2.0); Carboxyhemoglobin 0.3 % THb (0-2.0); Fractional Inspired Oxygen 60 %; HCO3 ABG 19.8 mEq/l (22.0-26.0); Methemoglobin ABG 0.2 %THb (0-1.5); Oxygen Content ABG 14.2 %vol (16.0-22.0); Oxygen Saturation ABG 96.8 % (95.0-100.0); Oxyhemoglobin 95.4 % THb (90.0-100.0); PCO2 ABG 29.9 mmHg (35.0-45.0); PO2 ABG 84.9 mmHg (80.0-100.0); PO2 FiO2 Ratio Arterial Blood 1.42 %; Reduced Hemoglobin 4.1 %THb (0-5.0); Total Hemoglobin 10.5 g/dL (12.0-18.0); pH ABG 7.439 (7.350-7.450)
[2023-09-17 05:09] LABS: Device NON-INVASIVE VENT; Modified Allen's Test Pass; Non-Invasive Inspiratory Pressure 10 CMH2O; Non-Invasive Vent Rate 14 /MIN; Site Drawn LEFT RADIAL
[2023-09-17 05:10] LABS: Non-Invasive Expiratory Pressure 6 CMH2O
[2023-09-17] MEDS: CEFEPIME 2 GM/NS 50 ML 2 GM/50 ML BAG IVPB (05:31)
[2023-09-17] MEDS: SODIUM BICARBONATE 8.4% 50 MEQ/50 ML SYRINGE IV PUSH ×2 (05:31→11:56)
[2023-09-17 06:40] LABS: Reflex Lactic Acid Yes or No Add Lactic
[2023-09-17 07:26] LABS: Lactic Acid 3.6 mmol/L (0.7-2.0)
[2023-09-17 07:41] LABS: Troponin I 0.822 ng/mL (0.000-0.034)
--- NOTE | 2023-09-17 09:00 | ECG_ITS ---
Measurements Intervals [place] Rate: 144 P: RI: 0 QRS: 83 QRSD: 97 T: 0 QT: 260 QTc: 403 Interpretive Statements ATRIAL FIBRILLATION WITH RAPID VENTRICULAR RESPONSE LOW QRS VOLTAGE IN LIMB LEADS NONSPECIFIC ST & T-WAVE ABNORMALITY- DIFFUSE LEADS BASELINE ARTIFACT- I, II, III, V1, V4 ABNORMAL ECG COMPARED TO ECG 09/16/2023 23:20:19 HEART RATE HAS INCREASED Electronically Signed On 09-17-2023 9:11:57 MUSHROOM SPAWN MAKER by Hayden Starks D.O.
[2023-09-17] MEDS: METOPROLOL TARTRATE INJ 5 MG/5 ML VIAL 2.5 MG IV PUSH ×2 (09:18→10:30)
[2023-09-17] MEDS: DORNASE ALFA INH SOLN 1 MG/ML 2.5 ML AMP 2.5 MG INHALATION ×2 (09:23→20:01)
--- NOTE | 2023-09-17 09:53 | PM.PNPUL ---
Progress Note: A&P Assessment and Plan (1) Multifocal pneumonia: Code(s): J18.9 - Pneumonia, unspecified organism Status: Acute Assessment and Plan: 09/13 Patient presents with weakness, cough and he denies any shortness of breath to me today. 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 He has been on room air since admission. He is hemodynamically stable. he has COVID, influenza and RSV RT PCR negative. I will treat him for neutropenic pneumonia. Plan: I will order a CT angiogram of the chest to assess for pulmonary embolism and evidence of pneumonia and or cancer. Agree with vancomycin and cefepime at this time, Day 3. I will order urine Legionella, urine pneumococcal, respiratory pathogen panel and serum mycoplasma IgM in the morning. Goal saturation 90-94% and patient is currently on room air. Sputum culture. Respiratory pathogen panel to [facility]. CT angiogram of the chest later in the day showed no pulmonary embolism, left greater than right small pleural effusions. Compared to 01/02/2023 increased ground-glass infiltrate right upper lobe, increased dense consolidation and infiltrate left upper lobe, increased ground-glass infiltrate lingula, increase interstitial infiltrates left lower lobe. 09/14: Overall the patient tells me that he is a little bit better. His cough is about the same and he has a little bit of phlegm that is clear in color and no hemoptysis. Patient remains on room air with saturations 96%. He is afebrile. White blood cell count is pending. Plan: Patient is no longer febrile and feels a little bit better. Patient had a CT angiogram of the chest yesterday and he does have increased ground-glass infiltrates as well as consolidative infiltrates and is difficult to tell if this is progressive cancer and or a pneumonia. I will continue vancomycin and cefepime, day 4. 09/15: Patient's reporting of his symptoms are inconsistent. Initially he told me he was breathing better, he was breathing normal at rest, stated his cough was better and stated his phlegm was clear and better. 3 minutes later the patient told me he was breathing worsened still had worsening dyspnea on exertion. The patient was placed on oxygen last night and he was on 2 L with saturations 100%. I decreased him to room air and after 6 minutes his saturations were 96%. I left him on room air. His white blood cell count is 13.9, he is afebrile. His weight is decreased from 70 kg on admission to 67.3 today Plan: Blood cultures 09/11 x 2 and 09/12 x 2 are no growth today. Respiratory pathogen panel pending and this will take approximately 7-10 days to return. Sputum culture is uncollected. I will continue vancomycin and cefepime, day 5. 09/16/2023. The patient states that he is the same to slightly worse. He continues with shortness of breath and a cough. He is on 2 L nasal cannula with saturations 96%. He is afebrile. White blood cell count 17.8. He is very weak and has a very poor cough. Plan: Patient with worsening oxygenation and a chest x-ray that demonstrates more consolidation in the left upper lobe. I suspect that this is worsening mucus plugging. Will continue cefepime, day 6. To 8 in sputum expectoration I will start bronchodilators albuterol and ipratropium nebulizers Q 6 hours, joint dornase 2.5 mg b.i.d., guaifenesin 1200 mg p.o. b.i.d. and a Cornet flutter valve. Later in the day the patient had respiratory distress and hypoxemic respiratory failure requiring BiPAP support and transfer to the ICU. On BiPAP rate of 14, pressures 10/6 and 60% FiO2 ABG was 7.4 03/02/1985. 09/17 currently the patient is in the ICU on BiPAP rate of 14 pressures 10/6 breathing 20 8 times a minute with tidal volumes 850 on 60% FiO2 with saturations 100%. I spoke with the bedside nurse and he had been doing better on the BiPAP with rates in the low 20s sinus tachycardia but then
--- NOTE | 2023-09-17 10:19 | PM.CNCAR ---
Assessment and Plan Assessment and plan (1) Acute diastolic CHF (congestive heart failure): Code(s): I50.31 - Acute diastolic (congestive) heart failure Status: Acute Assessment and Plan: New onset of acute diastolic CHF. Possibly due to AFib RVR. However he does have some ST changes inferiorly and elevated troponin, cannot exclude an acute IMI. Also is getting doxorubicin for chemotherapy, which can be cardiotoxic. LV function was normal prior to his last dose earlier this month but will re-evaluate with another echo. --continue furosemide 40 mg IV push b.i.d. --echocardiogram --daily BMP (2) Afib: Code(s): I48.91 - Unspecified atrial fibrillation Status: Acute Assessment and Plan: New onset of AFib RVR. Heart rate still not well controlled with p.r.n. metoprolol IV push. --start amiodarone drip --follow QT interval for levofloxacin/amiodarone interaction --holding off on full anticoagulation because of thrombocytopenia. (3) Elevated troponin: Code(s): R79.89 - Other specified abnormal findings of blood chemistry Status: Acute Assessment and Plan: Elevated troponins noted. Earlier EKG showed questionable ST elevation in the inferior leads, difficult to read because of tachycardia an artifact, but cannot rule out an acute inferior AK. However, if this is the case, we are quite limited with therapy because of his underlying comorbidities. --repeat EKG --echocardiogram --continue aspirin --control heart rate --further recommendations to follow (4) Respiratory failure: Code(s): J96.90 - Respiratory failure, unspecified, unspecified whether with hypoxia or hypercapnia Status: Acute Assessment and Plan: Respiratory failure secondary to pneumonia and acute diastolic CHF. --continue antibiotics --treat CHF as above --Pt is very ill and has a high risk of morbidity/mortality (5) Pneumonia: Code(s): J18.9 - Pneumonia, unspecified organism Status: Acute Assessment and Plan: Treatment per Pulmonary (6) Pancytopenia: Code(s): D61.818 - Other pancytopenia Status: Acute Assessment and Plan: Patient has pancytopenia secondary to recent chemo. Platelet count looks slightly better today. 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 (8) Atherosclerotic heart disease of [place] coronary artery without angina pectoris: Code(s): I25.10 - Atherosclerotic heart disease of [place] coronary artery without angina pectoris Status: Acute Assessment and Plan: History of CAD, stable for a number of years, remote intervention. Followed at [facility]. History of Present Illness History of Present Illness Consult date/time: 09/17/23 10:19 Reason For Visit: Leukopenia/Poss Pneumonia/Hypomagnesemia Narrative: Nawaf Lassiter is an 88-year-old white male whom we are asked to see at the request of Dr. Zaman for our advice and opinion regarding his AFib RVR. He has a history of CAD (remote coronary intervention, followed by Dr. Snow at [facility], hypertension and metastatic leiomyosarcoma (dx'd 2020, followed by Dr. Anahi Holguin, [facility]. Scans showed stable dz as of 09/04/2023) . Patient had his most recent chemo treatment on September 04 with DEX/DOX (DOXORUBICIN). Echo at that time showed EF 57%. The patient was admitted on 09/11/2023 with weakness and altered mental status. He has been seen by Dr. Hilario and is being treated for neutropenic pneumonia. He was found to have a right cephalic vein DVT but because of his thrombocytopenia this was treated conservatively, without anticoagulation. Worse mucus plugging was noted on
[2023-09-17] MEDS: MORPHINE SULFATE (*CRX) 2 MG/ML INJ 0.5 MG IV PUSH (10:27)
[2023-09-17 10:30] LABS: Alveolar/Arterial O2 Gradient 337.4 mmHg; Base Excess ABG -7.8 mEq/l (+/-2.0); Fractional Inspired Oxygen 60 %; Oxygen Content ABG 12.5 %vol (16.0-22.0); PCO2 ABG 32.2 mmHg (35.0-45.0); PO2 FiO2 Ratio Arterial Blood 0.92 %; Total Hemoglobin 10.3 g/dL (12.0-18.0)
[2023-09-17 10:32] LABS: Device NON-INVASIVE VENT; Non-Invasive Expiratory Pressure 5 CMH2O; Non-Invasive Vent Rate 20 /MIN; Oxygen Saturation ABG 87.3 % (95.0-100.0); Oxyhemoglobin 85.8 % THb (90.0-100.0); Site Drawn RIGHT BRACHIAL
[2023-09-17] MEDS: MEROPENEM 1 GM/NS 100 ML 1 GM/100 ML BAG IVPB ×2 (10:36→18:57)
[2023-09-17] MEDS: levoFLOXacin 750 MG/D5W 150 ML 750 MG/150 ML BAG 100 MG IVPB (11:10)
--- NOTE | 2023-09-17 11:24 | ECG_ITS ---
Measurements Intervals [place] Rate: 123 P: -5 PA: 98 QRS: 103 QRSD: 104 T: 0 QT: 282 QTc: 404 Interpretive Statements SINUS OR ECTOPIC ATRIAL TACHYCARDIA WITH SHORT PA INTERVAL RIGHT AXIS DEVIATION NONSPECIFIC ST & T-WAVE ABNORMALITY- DIFFUSE LEADS BASELINE WANDER- I, II, III, AVR, AVL, AVF, V1-V6 ABNORMAL ECG COMPARED TO ECG 09/17/2023 09:07:50 SINUS OR ECTOPIC ATRIAL TACHYCARDIA NOW PRESENT Electronically Signed On 09-17-2023 12:00:14 BODY TEAM MEMBER by Hayden Starks D.O.
--- NOTE | 2023-09-17 11:31 | PCNFU ---
Nutrition Follow-Up Complete: Unintended weight loss related to decreased appetite as evidenced by 2-13 lb loss [facility] CMA (per patient). 1. Intake of 75% x 3 meals on follow-up. 2. Weight to remain within 2% of 70 kg through follow-up. Patient has limited progress towards goal. We will continue current goal. Pt current nutrition is Regular with Ensure Compact TID. Last recorded weight is 68 kg, down from 70 kg on admit. Bowel Motility:+BM reported 09/16 Labs Reviewed:Glu 256, BUN 5, Na 125, Hct 31.1,Hgb 9.8 Meds Noted: Atrovent, Remeron, [place] Skin:WNL Additional Notes: Patient remains a regular diet-refused breakfast today. Oral Intake has been poor 5-10% of meals. Diet supplements remain on trays of Ensure compact TID providing an additional 220 kcals and 9 gms protein. Agree with diet orders. Monitor weight, PO intake, labs every 5 days.
[2023-09-17] MEDS: AMIODARONE 150 MG/D5W 100 ML 150 MG/100 ML BAG 600 MG IV CONT (11:58)
[2023-09-17] MEDS: AMIODARONE 360 MG/D5W 200 ML 360 MG/200 ML BAG 33.33 MG IV CONT (12:13)
--- NOTE | 2023-09-17 12:20 | ECG_ITS ---
Measurements Intervals [place] Rate: 106 P: 34 ND: 152 QRS: 94 QRSD: 106 T: -28 QT: 357 QTc: 475 Interpretive Statements SINUS TACHYCARDIA RIGHT AXIS DEVIATION LOW QRS VOLTAGE IN LIMB LEADS MINIMAL ST ELEVATION IN INFERIOR LEADS NONSPECIFIC ST & T-WAVE ABNORMALITY- ANTEROLAT/HIGH LAT LEADS BASELINE ARTIFACT- V6 ABNORMAL ECG COMPARED TO ECG 09/17/2023 11:44:28 SINUS TACHYCARDIA NOW PRESENT Electronically Signed On 09-17-2023 12:38:34 MAT PACKER by Hayden Starks D.O.
--- NOTE | 2023-09-17 12:49 | PCPTNOTE ---
PT treatment held today due to change in medical status. Patient transferred from 3 med/surg to ICU. PT will follow up with physician for further orders.
--- NOTE | 2023-09-17 13:39 | PCOTNOTE ---
Therapy treatment held on this day, as pt. transferred to ICU (IMU status). Per nursing, requiring continuous BiPap with afib RVR, and awaiting family decision regarding plan of care. Will follow up with hospitalist regarding return to therapy services when medically appropriate. Following.
[2023-09-17] MEDS: METOPROLOL TARTRATE INJ 5 MG/5 ML VIAL IV PUSH (14:13)
[2023-09-17 15:26] LABS: Influenza A QL RT-PCR Negative (Negative); Influenza B QL RT-PCR Negative (Negative); RSV RNA, RT-PCR Negative (Negative); SARS-CoV-2 RNA PCR Negative (Negative)
--- NOTE | 2023-09-17 15:34 | PM.IMPN ---
Progress Note: A&P Assessment and Plan (1) Encephalopathy: Code(s): G93.40 - Encephalopathy, unspecified Status: Acute (2) Hyponatremia: Code(s): E87.1 - Hypo-osmolality and hyponatremia Status: Acute (3) Pneumonia: Code(s): J18.9 - Pneumonia, unspecified organism Status: Acute (4) Hypomagnesemia: Code(s): E83.42 - Hypomagnesemia Status: Acute (5) Pancytopenia: Code(s): D61.818 - Other pancytopenia Status: Acute (6) Severe sepsis: Code(s): A41.9 - Sepsis, unspecified organism; R65.20 - Severe sepsis without septic shock Status: Acute (7) Multifocal pneumonia: Code(s): J18.9 - Pneumonia, unspecified organism Status: Acute (8) Type 2 diabetes mellitus without complications: Code(s): E11.9 - Type 2 diabetes mellitus without complications Status: Acute (9) Atherosclerotic heart disease of [place] coronary artery without angina pectoris: Code(s): I25.10 - Atherosclerotic heart disease of [place] coronary artery without angina pectoris Status: Acute Plan Acute respiratory failure Pt transferred to step down for acute SOB Pt is on BIPAP changed to AVAPS today PUlmology rounding CHF excerbation Pt is on iv lasix Cardiology rounding Af with RVR Pt had metoprolol IV x2 Strated on amiodarone drip stopped due to low BP Pt has converted to NSR Multifocal pneumonia Patient has history of lung cancer Came to ED with general weakness Chest x-ray shows multifocal pneumonia Not much improvement despite ABX Started Iv Levaquin and IV merrem IV lasix started today H/o of lung, liver and kidney cancer currently on chemotherapy on every 3 weeks basis at [facility]. IV morphine prn and iv ativan prn on board Pancytopenia Patient has a profound leukopenia and thrombocytopenia Likely resulting from chemotherapy for lung cancer metastatic to liver and kidney last week Consult heme oncologist for evaluation Patient heme oncologist consultation, pt had Neupogen 480 mcg [place] [id number], [place] [id number] today H/oCAD H/o Type 2 diabetes H/o GERD Family aware of his prognosis is poor continue active treatments, Daughter flying in today. Pt remains DNR status Subjective Date/time seen: 09/17/23 15:34 Interval history: 88-year-old male with past medical history of lung and liver cancer and asbestosis who presents to the emergency department with complaint of feeling weak.? Patient last underwent chemotherapy a week ago on .? At baseline he is fairly active.? His last known well is Friday when his son spoke with him and states he was sharp then.? Patient states he did go to the [facility] to work out on Friday but he did leave early because he was not feeling well. Pt admitted with encephalopathy, pneumonia and sepsis. Unfortunately pt is needing oxygen while resting and more liters on ambulation cxr shows not much better, despite iv abx, pt had lung, liver and kidney cancer currently on chemotherapy on every 3 weeks basis at [facility]. Unfortunately pt has declined his yesterday increase oxygen need and ongoing tachycardia. Pt transferred to Stepdown with Acute respiratory failure and AF with RVR. Pulmology and cardiology rounding. Pt started on metoprolol + amiodarone drip and lasix Pt is on BIPAP continue to monitor in hospital. Pt blood pressure running low so amiodarone drip was stopped Pt blood remains low continue to watch Long discussion with family they are aware pt is critically ill Pt remains DNR status Review of Systems Review of Systems: Tired weak SOB All systems reviewed & are unremarkable except as noted in HPI and below Exam Narrative: GENERAL:? Tired weak on BIPAP ENT: Nares clear, no rhinorrhea or epistaxis.? Mucous membranes moist. NECK: Supple. CHEST: BL crac
[2023-09-17 18:12] LABS: Mycoplasma IgM Antibody Titer 67 U/mL (<770)
--- NOTE | 2023-09-17 21:37 | PC.NURSE ---
Stephani gave son number to call for donation of body to [employer] for [facility] [phone]. She will instruct them to just call us with the information after they have talked to someone and it is set up.
--- NOTE | 2023-09-18 13:35 | PC.NURSE ---
Patient's family called and have decided to forgo body donation. They have selected [facility] in [place] for services. Release of Body form updated. [facility] notified.
--- NOTE | 2023-09-18 14:33 | PM.DS ---
DS: Admitting Diagnosis Discharge Date 09/17/23 DS: Discharge Diagnosis Discharge Diagnosis (1) Encephalopathy: Code(s): G93.40 - Encephalopathy, unspecified Status: Acute (2) Hyponatremia: Code(s): E87.1 - Hypo-osmolality and hyponatremia Status: Acute (3) Pneumonia: Code(s): J18.9 - Pneumonia, unspecified organism Status: Acute (4) Hypomagnesemia: Code(s): E83.42 - Hypomagnesemia Status: Acute (5) Pancytopenia: Code(s): D61.818 - Other pancytopenia Status: Acute (6) Severe sepsis: Code(s): A41.9 - Sepsis, unspecified organism; R65.20 - Severe sepsis without septic shock Status: Acute (7) Multifocal pneumonia: Code(s): J18.9 - Pneumonia, unspecified organism Status: Acute (8) Type 2 diabetes mellitus without complications: Code(s): E11.9 - Type 2 diabetes mellitus without complications Status: Acute (9) Atherosclerotic heart disease of [place] coronary artery without angina pectoris: Code(s): I25.10 - Atherosclerotic heart disease of [place] coronary artery without angina pectoris Status: Acute Plan Acute respiratory failure Pt transferred to step down for acute SOB Pt is on BIPAP changed to AVAPS today PUlmology rounding CHF excerbation Pt is on iv lasix Cardiology rounding Af with RVR Pt had metoprolol IV x2 Strated on amiodarone drip stopped due to low BP Pt has converted to NSR Multifocal pneumonia Patient has history of lung cancer Came to ED with general weakness Chest x-ray shows multifocal pneumonia Not much improvement despite ABX Started Iv Levaquin and IV merrem IV lasix started today H/o of lung, liver and kidney cancer currently on chemotherapy on every 3 weeks basis at [facility]. IV morphine prn and iv ativan prn on board Pancytopenia Patient has a profound leukopenia and thrombocytopenia Likely resulting from chemotherapy for lung cancer metastatic to liver and kidney last week Consult heme oncologist for evaluation Patient heme oncologist consultation, pt had Neupogen 480 mcg [place] [address], [place] [id number] today H/oCAD H/o Type 2 diabetes H/o GERD Family aware of his prognosis is poor continue active treatments, Daughter flying in today. Pt remains DNR status DS: Summary Time Spent with Patient Time attestation: Total time spent providing and/or coordinating discharge services: Exam Narrative: GENERAL:? Tired weak on BIPAP ENT: Nares clear, no rhinorrhea or epistaxis.? Mucous membranes moist. NECK: Supple. CHEST: BL crackles HEART: Regular rate and rhythm.?grade 2 systolic murmur at the aortic area. ABDOMEN: Soft, nontender, nondistended. EXTREMITIES: Normal range of motion.? SKIN: Warm, dry, no rash, port in place with no surrounding erythema or tenderness NEURO: No focal deficits.? Alert and oriented to self and location but not details of health history or acute events/situation PSYCH: Normal mood and affect. DS: Data Data Completed and Pending Labs on day of discharge: Labs from last 24 hours 09/17/23 09/17/23 09/14/23 14:38 14:30 06:03 Influenza A (RT-PCR) Negative Influenza B (RT-PCR) Negative Ur L.pneumophila Ag Pending Mycoplasma pneumon IgM 67 RSV (RT-PCR) Negative SARS-CoV-2 RNA (RT-PCR) Negative Urine Pneumococcal Ag Pending Discharge Plan Discharge Consulting providers: Edenilson Bartlett; Joyce Bishop; Jadon Hilario; Rosales Whitfield; Hayden Starks; Cornelius Mcarthur; Milagro Thacker; Benny Pacheco V.; Samson Nelson; Aniceto Nguyen Patient Disposition: Discharge Medications: No Action omeprazole 20 mg capsule,delayed release(DR/EC) 20 mg PO DAILY Qty: 90 3RF metoprolol tartrate 25 mg tablet 25 mg PO BID Qty: 180 3RF atorvastatin 10 mg tablet 10 mg PO DAILY Qty: 90 3RF aspirin
--- NOTE | 2023-09-18 15:51 | PM.DDS ---
Discharge Summary Date and Time Date of : 09/17/23 Time of : 20:34 Provider Pronounced By: Cesario Reilly Probable Cause of Probable Cause of : Acute respiratory failure Pt transferred to step down for acute SOB Pt is on BIPAP changed to AVAPS today PUlmology rounding Unfortunately pt declined later that evening despite all medical theraphies CHF excerbation Pt is on iv lasix Cardiology rounding Unfortunately pt declined later that evening despite all medical theraphies Af with RVR Pt had metoprolol IV x2 Strated on amiodarone drip stopped due to low BP Pt has converted to NSR Unfortunately pt declined later that evening despite all medical theraphies Multifocal pneumonia Patient has history of lung cancer Came to ED with general weakness Chest x-ray shows multifocal pneumonia Not much improvement despite ABX Started Iv Levaquin and IV merrem IV lasix started today Unfortunately pt declined later that evening despite all medical theraphies H/o of lung, liver and kidney cancer currently on chemotherapy on every 3 weeks basis at [facility]. IV morphine prn and iv ativan prn on board Unfortunately pt declined later that evening despite all medical theraphies Pancytopenia Patient has a profound leukopenia and thrombocytopenia Likely resulting from chemotherapy for lung cancer metastatic to liver and kidney last week Consult heme oncologist for evaluation Patient heme oncologist consultation, pt had Neupogen 480 mcg [place] [address], [place] [id number] today Unfortunately pt declined later that evening despite all medical theraphies Family aware of his prognosis is poor continue active treatments, Daughter flying in today. Pt remains DNR status Unfortunately pt declined later that evening despite all medical theraphies Summary Hospital Course: 88-year-old male with past medical history of lung and liver cancer and asbestosis who presents to the emergency department with complaint of feeling weak.? Patient last underwent chemotherapy a week ago on .? At baseline he is fairly active.? His last known well is Friday when his son spoke with him and states he was sharp then.? Patient states he did go to the [facility] to work out on Friday but he did leave early because he was not feeling well. Pt admitted with encephalopathy, pneumonia and sepsis. Unfortunately pt is needing oxygen while resting and more liters on ambulation cxr shows not much better, despite iv abx, pt had lung, liver and kidney cancer currently on chemotherapy on every 3 weeks basis at [facility]. Unfortunately pt has declined his yesterday increase oxygen need and ongoing tachycardia. Pt transferred to Stepdown with Acute respiratory failure and AF with RVR. Pulmology and cardiology rounding. Pt started on metoprolol + amiodarone drip and lasix Pt is on BIPAP continue to monitor in hospital. Pt blood pressure running low so amiodarone drip was stopped Pt blood remains low continue to watch Long discussion with family they are aware pt is critically ill Pt remains DNR status pt declined later and passed at 830 pm that evening. Additional Data Confirmation of as documented by pronouncing clinician: Pupillary Reflex, Palpable Pulses, Response to Stimuli, Heart Tones and Breath Sounds Name of Provider Notified: Tonia Chaudhary Time Provider Notified: 20:35 Provider Requests Autopsy: No Family Requests Autopsy: No Fitness Studies Teacher Notified: Yes Date [facility] Notified of : 09/17/23 Time [facility] Notified of : 21:16
[2023-09-19 18:09] LABS: Pneumococcal Antigen Urine Not Detected (Not Detected)
[2023-09-19 23:23] LABS: Legionella pneumophila Ag Ur Not Detected (Not Detected)
== END 2023-09-17 20:34 | disposition expired | DRG 871 ==
LOC: ANHED 21:59 → ANH3MEDSUR 09-12 04:16 → ANH2MED 09-12 09:21 → ANH3MEDSUR 09-12 09:21 → ANHICU 09-18 12:46
PROVIDERS: Emergency Medicine; Hospitalist; Internal Medicine; Internal Medicine Critical Care Medicine; Internal Medicine Hematology & Oncology; Internal Medicine Pulmonary Disease; Admitting Provider Student in an Organized Health Care Education/Training Program; Emergency Provider Student in an Organized Health Care Education/Training Program; PCP Family Medicine Adolescent Medicine; Visit Provider Family Medicine
DX: A41.9 Sepsis, unspecified organism (principal); D61.810 Antineoplastic chemotherapy induced pancytopenia; J96.00 Acute respiratory failure, unspecified whether with hypoxia or hypercapnia; J18.9 Pneumonia, unspecified organism; I50.31 Acute diastolic (congestive) heart failure; C78.7 Secondary malignant neoplasm of liver and intrahepatic bile duct; C79.00 Secondary malignant neoplasm of unspecified kidney and renal pelvis; C34.90 Malignant neoplasm of unspecified part of unspecified bronchus or lung; E87.1 Hypo-osmolality and hyponatremia; G93.40 Encephalopathy, unspecified; I82.611 Acute embolism and thrombosis of superficial veins of right upper extremity; R65.20 Severe sepsis without septic shock; E78.5 Hyperlipidemia, unspecified; E83.42 Hypomagnesemia; I11.0 Hypertensive heart disease with heart failure; I25.10 Atherosclerotic heart disease of native coronary artery without angina pectoris; I25.2 Old myocardial infarction; I48.91 Unspecified atrial fibrillation; J61 Pneumoconiosis due to asbestos and other mineral fibers; T45.1X5A Adverse effect of antineoplastic and immunosuppressive drugs, initial encounter; I65.23 Occlusion and stenosis of bilateral carotid arteries; Z20.822 Contact with and (suspected) exposure to COVID-19; Z85.118 Personal history of other malignant neoplasm of bronchus and lung; Z66 Do not resuscitate; Z77.090 Contact with and (suspected) exposure to asbestos; Z92.21 Personal history of antineoplastic chemotherapy; Z79.82 Long term (current) use of aspirin; Z86.73 Personal history of transient ischemic attack (TIA), and cerebral infarction without residual deficits; Z95.5 Presence of coronary angioplasty implant and graft; Z96.653 Presence of artificial knee joint, bilateral; Z87.891 Personal history of nicotine dependence; Z79.84 Long term (current) use of oral hypoglycemic drugs
CPT/HCPCS: 36415; 36600; 70450; 71045; 71046; 71275; 80048; 80053; 80076; 80202; 81001; 82375; 82565; 82607; 82728; 82746; 82805; 82948; 83050; 83540; 83550; 83605; 83735; 83880; 84100; 84484; 85025; 85055; 86738; 87040; 87449; 87486; 87581; 87633; 87635; 87636; 87637; 87641; 87899; 93005; 93306; 93971; 94002; 94640; 94667; 96365; 97110; 97116; 97161; 97165; 97530; 97535; 99285; A9270; J0282; J0692; J1642; J1940; J1956; J2185; J2270; J2405; J2997; J3370; J3475; J7030; Q5101; Q9967